=== PATIENT | male | born 1965 | race American Indian/Alaskan Native ===

== ENCOUNTER 2017-07-12 13:51 | Inpatient (IN) | payer SELFPAY ==
[2017-07-12] MEDS ORDERED: BABY ASPIRIN PO ONE ×2 (14:53→19:48)
[2017-07-12] MEDS ORDERED: NITROSTAT SL ONE (14:53)
--- NOTE | 2017-07-12 14:53 | Emergency Department Report ---
Chief Complaint: Chest Pain Stated Complaint: heart attack Time Seen by Provider: 07/12/17 14:40 - HPI History of Present Illness: Patient is a 51-year-old -[place]azi male with past history of diabetes presenting with chest pain. Patient states at 9 AM this morning patient started having sharp chest pains that E slightly but has heightened sense. Patient states he has some mild shortness of breath. Patient also has pain when he breathes deeply. Denies syncope dizziness nausea vomiting diarrhea. Patient states he had a mild cough starting yesterday but he states that is not productive. The patient does have history of smoking as well. - ROS Review of Systems: Review of systems negative except for those elements in HPI - Exam Vital Signs: Vital Signs 07/12/17 07/12/17 14:02 14:39 Temperature 95 F L Pulse Rate 98 H Respiratory 20 18 Rate Blood Pressure 149/126 O2 Sat by Pulse 95 100 Oximetry Physical Exam: Focused physical exam patient's lungs are clear to auscultation heart tones are within normal limits abdomen is soft nontender neuro patient does appear to be in mild distress secondary to pain MSE screening note: Focused history and physical exam performed. Due to findings the following was ordered: ED Disposition for MSE Condition: Stable Referrals: VIRAL TOLBERT MD [Primary Care Provider] - 3-5 Days
[2017-07-12 15:21] LABS: Basophils % (Auto) 0.5 % (0.0-1.8); Eosinophils % (Auto) 2.1 % (0.0-4.3); Hematocrit 46.3 % (35.5-45.6); Hemoglobin 15.8 gm/dl (11.8-15.2); Mean Corpuscular HGB Conc 34 % (32-34); Mean Corpuscular Hemoglobin 33 pg (28-32); Mean Corpuscular Volume 97 fl (84-94); Platelet Count 214 K/mm3 (140-440); Red Blood Count 4.79 M/mm3 (3.65-5.03); Red Cell Distribution Width 12.7 % (13.2-15.2); White Blood Count 9.2 K/mm3 (4.5-11.0)
[2017-07-12 15:32] LABS: INR 0.89 (0.87-1.13)
[2017-07-12 15:33] LABS: Partial Thromboplastin Time 30.4 Sec. (24.2-36.6)
[2017-07-12 15:38] LABS: Anion Gap 17 mmol/L; BUN/Creatinine Ratio 11; Blood Urea Nitrogen 10 mg/dL (9-20); Calcium 9.7 mg/dL (8.4-10.2); Carbon Dioxide 28 mmol/L (22-30); Chloride 99.8 mmol/L (98-107); Glucose 94 mg/dL (75-100); Potassium 4.8 mmol/L (3.6-5.0); Sodium 140 mmol/L (137-145)
--- NOTE | 2017-07-12 15:39 | XRay Report ---
AP CHEST: History: Chest pain. AP view of the chest demonstrates a normal mediastinal and cardiac contour with clear lungs and normal bony and soft tissue structures. IMPRESSION: Normal AP chest.
[2017-07-12] MEDS ORDERED: NITRO-BID 2% TP ONE (19:34)
--- NOTE | 2017-07-12 19:45 | Emergency Department Report ---
ED Chest Pain HPI - General Chief Complaint: Chest Pain Stated Complaint: heart attack Time Seen by Provider: 07/12/17 14:40 Source: patient Mode of arrival: Wheelchair Limitations: No Limitations - History of Present Illness MD Complaint: chest pain -: Gradual, hour(s) Onset: during rest, during exertion Pain Location: substernal, left chest Pain Radiation: none Severity: moderate Severity scale (0 -10): 3 Quality: tightness, sharp, dull Consistency: intermittent, now resolved Improves With: nothing Worsens With: nothing, exertion re: denies: nausea, dyspnea Treatments Prior to Arrival: none - Related Data Previous Rx's Medication Instructions Recorded Last Taken Type Ibuprofen [Motrin] 800 mg PO TID PRN #20 tablet 09/30/13 Unknown Rx Allergies Allergy/AdvReac Type Severity Reaction Status Date / Time Penicillins Allergy Rash Verified 09/30/13 09:38 Heart Score - HEART Score History: Moderately suspicious EKG: Non-specific Age: 45-65 Risk factors: 1-2 risk factors Troponin: 1-3x normal limit HEART Score: 5 ED Review of Systems ROS: Stated complaint: heart attack Other details as noted in HPI Comment: All other systems reviewed and negative Constitutional: diaphoresis Respiratory: no symptoms reported Cardiovascular: chest pain Gastrointestinal: denies: nausea, vomiting ED Past Medical Hx - Past Medical History Hx Diabetes: Yes - Social History Smoking Status: Current Every Day Smoker Substance Use Type: None - Medications Home Medications: Home Medications Medication Instructions Recorded Confirmed Last Taken Type Ibuprofen [Motrin] 800 mg PO TID PRN #20 tablet 09/30/13 07/12/17 Unknown Rx ED Physical Exam - General Limitations: No Limitations General appearance: alert - Head Head exam: Present: atraumatic - Eye Eye exam: Present: normal appearance - Neck Neck exam: Present: normal inspection. Absent: meningismus - Respiratory Respiratory exam: Present: normal lung sounds bilaterally. Absent: respiratory distress, chest wall tenderness - Cardiovascular Cardiovascular Exam: Present: regular rate, normal rhythm, normal heart sounds. Absent: systolic murmur, diastolic murmur, rubs, gallop - GI/Abdominal GI/Abdominal exam: Present: soft. Absent: tenderness, guarding, rebound, pulsatile mass - Extremities Exam Extremities exam: Present: normal inspection, normal capillary refill. Absent: pedal edema, joint swelling, calf tenderness - Back Exam Back exam: Present: normal inspection - Neurological Exam Neurological exam: Present: alert, oriented X3, CN II-XII intact. Absent: motor sensory deficit - Psychiatric Psychiatric exam: Present: normal affect, anxious ED Course Vital Signs 07/12/17 07/12/17 07/12/17 14:02 14:39 15:30 Temperature 95 F L Pulse Rate 98 H 85 Respiratory 20 18 Rate Blood Pressure 149/126 150/103 Blood Pressure [Left] O2 Sat by Pulse 95 100 Oximetry 07/12/17 07/12/17 15:41 16:56 Temperature Pulse Rate 80 74 Respiratory 16 16 Rate Blood Pressure Blood Pressure 148/92 138/98 [Left] O2 Sat by Pulse 96 96 Oximetry - Reevaluation(s) Reevaluation #1: 07/12/17 19:44 Repeat exam patient is pain-free he received aspirin and nitrates on his initial evaluation on my reevaluation patient was pain-free I did elect to repeat an EKG and sent a second troponin was second troponin is elevated EKG however did not show a STEMI he did have normal sinus rhythm without acute ST change case discussed with Dr. Juanjo ANTONIO for admit ED Medical Decision Making - Lab Data Result diagrams: 07/12/17 15:00 07/12/17 15:00 - EKG Data When compared to previous EKG there are: previous EKG unavailable Interpretation: no acute changes, nonspecific ST-T wave tavares 07/12/17 19:46 Poor R-wave progression - Medical Decision Making Patient with elevated troponin and nondiagnostic EKG history worrisome for angina ACS he'll need to be admitted for further evaluation Critical Care Time: Yes Critical care time in (mins) excluding proc time.: 30 Critical care attestation.: If time is entered above; I have spent that time in minutes in the direct care of this critically ill patient, excluding procedure time. ED Disposition Clinical Impression: ACS (acute coronary syndrome) Disposition: -09 OP ADMIT IP TO THIS HOSP Is pt being admited?: Yes Does the pt Need Aspirin: Yes Condition: Stable Referrals: VIRAL TOLBERT MD [Primary Care Provider] - 3-5 Days
[2017-07-12] MEDS ORDERED: DULCOLAX PR PRN (21:35)
[2017-07-12] MEDS ORDERED: MILK OF MAGNESIA PO PRN (21:35)
[2017-07-12] MEDS ORDERED: ZOFRAN IV PRN (21:35)
[2017-07-12] MEDS ORDERED: TYLENOL PO PRN (21:35)
[2017-07-12] MEDS ORDERED: APRESOLINE IV PRN (21:38)
--- NOTE | 2017-07-12 21:38 | History and Physical Report ---
History of Present Illness Date of examination: 07/12/17 History of present illness: 51-year-old woman with a history of diabetes, noncompliant with medication 2 years comes to the emergency room for chest pain that started yesterday. Pain is in the left chest which he describes as a sharp pain, intensity 5/10, no radiation, he cannot identify exacerbating or relieving factors. He denies nausea vomiting, diaphoresis, palpitation, shortness of breath Review Of Systems: Constitutional: no weight loss Ears, eyes, nose, mouth and throat: no nasal congestion, no nasal discharge, no sinus pressure, blurry vision, diplopia Neck: No neck pain or rigidity. Cardiovascular: no orthopnea, palpitations Respiratory: No cough Gastrointestinal:no abdominal pain, hematochezia Genitourinary : no dysuria, frequency , hematuria Musculoskeletal: no muscle ache Integumentary: no rash, no pruritis Neurological: no parathesias, focal weakness Endocrine: no cold or heat intolerance, no polyuria or polydipsia Hematologic/Lymphatic: no easy bruising, no easy bleeding, no gland swelling Allergic/Immunologic: no urticaria, no angioedema. PAST MEDICAL HISTORY: diabetes PAST SURGICAL HISTORY: none FAMILY HISTORY: Hypertension SOCIAL HISTORY: Denies alcohol, drugs, smoke 1 pack a day Medications and Allergies Allergies Allergy/AdvReac Type Severity Reaction Status Date / Time Penicillins Allergy Rash Verified 09/30/13 09:38 Home Medications Medication Instructions Recorded Confirmed Last Taken Type Ibuprofen [Motrin] 800 mg PO TID PRN #20 tablet 09/30/13 07/12/17 Unknown Rx Active Meds: Active Medications Acetaminophen (Tylenol) 650 mg PO Q4H PRN PRN Reason: Pain MILD(1-3)/Fever >100.5/SHERIFF Bisacodyl (Dulcolax) 10 mg [place] QDAY PRN PRN Reason: Constipation unrelieved by MOM Enoxaparin Sodium (Lovenox) 30 mg SUB-Q QDAY ALEX Hydralazine HCl (Apresoline) 5 mg IV Q6HR PRN PRN Reason: Hypertension Magnesium Hydroxide (Milk Of Magnesia) 30 ml PO Q4H PRN PRN Reason: Constipation Morphine Sulfate (Morphine) 2 mg IV Q4H PRN PRN Reason: Pain, Moderate (4-6) Ondansetron HCl (Zofran) 4 mg IV Q8H PRN PRN Reason: N/V unrelieved by Reglan Exam - Physical Exam Narrative exam: Gen. appearance: Patient lying in bed in no acute distress HEENT: Normocephalic/atraumatic, pupils equal round reactive to light, extra occular movement intact, no scleral icterus, no JVD or thyromegaly or nodule, neck is supple, mucous membrane moist, no erythema or exudate Heart: S1-S2, regular rate and rhythm Lungs: Clear to auscultation bilateral breathing comfortable Abdomen: Positive bowel sounds, nontender, nondistended, no organomegaly Extremities: No edema, cyanosis, clubbing Neuro:: Oriented 3 , cranial nerves II-12 intact, speech, motor intact Skin: No rash, nodules, warm dry - Constitutional Vitals: Temp Pulse Resp BP Pulse Ox 95 F L 84 16 142/97 96 07/12/17 14:02 07/12/17 20:02 07/12/17 16:56 07/12/17 20:02 07/12/17 16:56 Results - Labs CBC & Chem 7: 07/12/17 15:00 07/12/17 15:00 Labs: Abnormal lab results 07/12/17 07/12/17 Range/Units 15:00 18:42 Hgb 15.8 H (11.8-15.2) gm/dl Hct 46.3 H (35.5-45.6) % MCV 97 H (84-94) fl MCH 33 H (28-32) pg RDW 12.7 L (13.2-15.2) % Troponin T 0.062 H D (0.00-0.029) ng/mL Cholesterol 219 H (50-199) mg/dL LDL Cholesterol Direct 156 H (50-130) mg/dL - Imaging and Cardiology EKG: image reviewed Chest x-ray: image reviewed Assessment and Plan Assessment Hypertensive urgency Chest pain most like is secondary to #1 History of Diabetes type 2, blood sugar is normal Plan Admit to medicine Start IV hydralazine, norvasc Check cardiac enzymes, lipid profile, stress test, including A1c Start aspirin, IV morphine, DVT prophylaxis
[2017-07-12 22:31] LABS: Creatine Kinase MB 3.5 ng/mL (0.0-4.0)
[2017-07-12] MEDS: MORPHINE IV PRN (23:46)
[2017-07-13 06:00] LABS: Basophils % (Auto) 0.6 % (0.0-1.8); Eosinophils % (Auto) 3.6 % (0.0-4.3); Hematocrit 44.1 % (35.5-45.6); Mean Corpuscular HGB Conc 34 % (32-34); Mean Corpuscular Hemoglobin 33 pg (28-32); Mean Corpuscular Volume 96 fl (84-94); Platelet Count 213 K/mm3 (140-440); Red Blood Count 4.57 M/mm3 (3.65-5.03); Red Cell Distribution Width 12.8 % (13.2-15.2)
[2017-07-13 06:19] LABS: Anion Gap 17 mmol/L; BUN/Creatinine Ratio 13; Blood Urea Nitrogen 13 mg/dL (9-20); Calcium 8.9 mg/dL (8.4-10.2); Carbon Dioxide 26 mmol/L (22-30); Chloride 101.5 mmol/L (98-107); Creatine Kinase MB 3.2 ng/mL (0.0-4.0); Glucose 99 mg/dL (75-100); Potassium 4.1 mmol/L (3.6-5.0); Sodium 140 mmol/L (137-145)
[2017-07-13] MEDS ORDERED: LEXISCAN IV ONE ×2 (08:09→10:51)
[2017-07-13] MEDS ORDERED: LOVENOX SUB-Q SCH (10:00)
[2017-07-13] MEDS: NORVASC PO SCH (12:52)
[2017-07-13] MEDS ORDERED: NACL 0.9% 500 ML 500 ML IV SCH (13:00)
--- NOTE | 2017-07-13 13:25 | Progress Note ---
Assessment and Plan Assessment and plan: Patient is a 61-year-old man with history of hypertension and tobacco dependency who presents with chest pain. -Chest pain with abnormal stress test, most likely NSTEMI: Cardiac catheterization, consult cardiology, on lopressor/plavix/statin==> i added iv heparin and asa, d/w Dr. Mckenzie -Accelerated hypertension due to noncompliance: IV labetalol as needed, treat with beta blockers -Dyslipidemia: Treat with statins -Hyperglycemia, borderline diabetes mellitus, A1c 5.7 -Tobacco dependency: Counseled stopping -DVT prophylaxis: Start heparin drip, stopped lovenox History Interval history: Patient was seen and examined. Follow-up on current diagnosis. Overnight uneventful. Patient denies any chest pain, shortness breath, nausea/vomiting or severe headaches. Imaging, nursing note, chart, labs and old chart reviewed. Discussed with patient. He had chest pain yesterday but not today Hospitalist Physical - Physical exam Narrative exam: GEN: WDWN, NAD, AWAKE, ALERT, ORIENTATED 3 HEENT: NCAT, EOMI, PERRL, OP Clear NECK: supple, no adenopathy, no thyromegaly, no JVD CVS/HEART: RRR, NORMAL S1S2, NO JVD, pulses present bilaterally CHEST/LUNGS: CTA B, Symmetrical chest expansion, good air entry bilaterally GI/Abdomen: soft, NTND, good bowel sounds, no guarding or rebound /Bladder: no suprapubic tenderness, no CVA or paraspinal tenderness EXT/Skin: no c/c/e, no obvious rash MSK: FROM x 4 Neuro: CN 2-12 grossly intact, no new focal deficits Psych: calm - Constitutional Vitals: Temp Pulse Resp BP Pulse Ox 98.7 F 94 H 20 130/101 96 07/12/17 23:42 07/13/17 10:53 07/12/17 23:46 07/13/17 10:53 07/12/17 23:42 Results - Labs CBC & Chem 7: 07/13/17 04:41 07/13/17 04:41 Labs: Laboratory Last Values WBC 10.0 K/mm3 (4.5-11.0) 07/13/17 04:41 RBC 4.57 M/mm3 (3.65-5.03) 07/13/17 04:41 Hgb 15.0 gm/dl (11.8-15.2) 07/13/17 04:41 Hct 44.1 % (35.5-45.6) 07/13/17 04:41 MCV 96 fl (84-94) H 07/13/17 04:41 MCH 33 pg (28-32) H 07/13/17 04:41 MCHC 34 % (32-34) 07/13/17 04:41 RDW 12.8 % (13.2-15.2) L 07/13/17 04:41 Plt Count 213 K/mm3 (140-440) 07/13/17 04:41 Lymph % (Auto) 39.6 % (13.4-35.0) H 07/13/17 04:41 [place] % (Auto) 6.5 % (0.0-7.3) 07/13/17 04:41 Eos % (Auto) 3.6 % (0.0-4.3) 07/13/17 04:41 Baso % (Auto) 0.6 % (0.0-1.8) 07/13/17 04:41 Lymph # 3.9 K/mm3 (1.2-5.4) 07/13/17 04:41 [place] # 0.6 K/mm3 (0.0-0.8) 07/13/17 04:41 Eos # 0.4 K/mm3 (0.0-0.4) 07/13/17 04:41 Baso # 0.1 K/mm3 (0.0-0.1) 07/13/17 04:41 Seg Neutrophils % 49.7 % (40.0-70.0) 07/13/17 04:41 Seg Neutrophils # 5.0 K/mm3 (1.8-7.7) 07/13/17 04:41 PT 12.5 Sec. (12.2-14.9) 07/12/17 15:00 INR 0.89 (0.87-1.13) 07/12/17 15:00 APTT 30.4 Sec. (24.2-36.6) 07/12/17 15:00 D-Dimer 190.63 ng/mlDDU (0-234) 07/12/17 15:00 Sodium 140 mmol/L (137-145) 07/13/17 04:41 Potassium 4.1 mmol/L (3.6-5.0) 07/13/17 04:41 Chloride 101.5 mmol/L (98-107) 07/13/17 04:41 Carbon Dioxide 26 mmol/L (22-30) 07/13/17 04:41 Anion Gap 17 mmol/L 07/13/17 04:41 BUN 13 mg/dL (9-20) 07/13/17 04:41 Creatinine 1.0 mg/dL (0.8-1.5) 07/13/17 04:41 Estimated GFR > 60 ml/min 07/13/17 04:41 BUN/Creatinine Ratio 13 % 07/13/17 04:41 Glucose 99 mg/dL (75-100) 07/13/17 04:41 Hemoglobin A1c 5.7 % (4-6) 07/13/17 04:41 Calcium 8.9 mg/dL (8.4-10.2) 07/13/17 04:41 Total Creatine Kinase 132 units/L (55-170) 07/13/17 04:41 CK-MB (CK-2) 3.2 ng/mL (0.0-4.0) 07/13/17 04:41 CK-MB (CK-2) Rel Index 2.4 (0-4) 07/13/17 04:41 Troponin T 0.014 ng/mL (0.00-0.029) 07/13/17 04:41 Triglycerides 58 mg/dL (2-149) 07/12/17 18:42 Cholesterol 219 mg/dL (50-199) H 07/12/17 18:42 LDL Cholesterol Direct 156 mg/dL (50-130) H 07/12/17 18:42 HDL Cholesterol 52 mg/dL (40-59) 07/12/17 18:42 Cholesterol/HDL Ratio 4.21 % 07/12/17 18:42
[2017-07-13 14:27] LABS: Hematocrit 44.9 % (35.5-45.6); Hemoglobin 15.4 gm/dl (11.8-15.2)
[2017-07-13 14:37] LABS: INR 0.94 (0.87-1.13)
[2017-07-13] MEDS: BABY ASPIRIN PO SCH (17:43)
[2017-07-13] MEDS: MORPHINE IV PRN (18:30)
[2017-07-13] MEDS: LOPRESSOR PO SCH (21:05)
[2017-07-13] MEDS: HEPARIN/ 0.45% NACL-25,000 UNIT/500 ML 25,000 UNIT/500 ML BAG IV SCH (21:22)
--- NOTE | 2017-07-13 22:50 | Consultation ---
REFERRING PHYSICIAN: Aníbal Miranda M.D. REASON FOR CONSULTATION: Evaluation of abnormal stress test. HISTORY OF PRESENT ILLNESS: The patient is a 51-year-old -[place] gentleman who presented to the Emergency Room with chest pain that started the night before and the pain is in the anterior chest associated with shortness of breath. In the morning of admission, the patient went to look for cars and when he was walking around, he had anterior chest discomfort, shortness of breath, which is getting worse. He describes the pain as tightness with no radiation. He got short of breath, no nausea, vomiting. The pain is severe. Hence, he came to the Emergency Room. He was evaluated in the Emergency Room and was admitted for further evaluation. Laboratory data showed troponin is elevated. Troponin was 0.062 at the time of admission and repeat one is 0.044 and this morning is 0.014. Lipid profile showed triglycerides 58, cholesterol of 219, LDL of 156, HDL of 52. Subsequently, underwent IV Lexiscan nuclear imaging. The EKG at the time of stress test was unremarkable. This showed evidence of anterior ischemia, which is reversible. Hence, we were called in consultation. The patient states he is very active, used to play came ball and drum without any problems. His problem started only for last 2 days. The patient has history of diabetes mellitus for last 2 years, noncompliant with the medication. No history of hypertension. FAMILY HISTORY: No family history of coronary artery disease. SOCIAL HISTORY: Smokes 1 pack in 2 days. Denies any alcohol or drug use. He is with, he says has 16 children. 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 REVIEW OF SYSTEMS: He has history of kidney stones a while ago. Otherwise, previous hospitalization was for gastric ulcers many, many years ago. No history of blood transfusion. No history of anemia. No history of asthma. No history of strokes. No history of pulmonary emboli or DVT. He denies any hypertension. Apparently, he has diabetes, not taking medication. Denies any fever or coughing, no orthopnea, no PND, no leg swelling. PHYSICAL EXAMINATION: GENERAL: The patient appears to be comfortable, well developed, well nourished. HEENT: Conjunctivae pink. Sclerae anicteric. NECK: Supple, no JVD. HEART: Regular, probable S4, no S3, no significant murmurs noted. LUNGS: Clear. ABDOMEN: Benign. EXTREMITIES: Without edema. IMAGING: Chest x-ray was found to be unremarkable. EKG done at the time of admission showed minimal ST elevations in V1 and V2. FINAL IMPRESSION: Chest pain at rest and with minimal exertion of 1-2 days duration. Cardiac enzymes are minimally elevated, suggestive of acute coronary syndrome and also IV Lexiscan nuclear imaging showed evidence of anterior ischemia. Considering his risk factors of diabetes, hypertension with chest pain and abnormal nuclear imaging and elevated cardiac enzymes, would continue risk factor modification and medical therapy. Recommended cardiac catheterization for definitive diagnosis and treatment. The patient was explained of the procedure, potential complications and alternatives of therapy available. The patient is chest pain free at this time. He is eligible to have cardiac catheterization, same will be arranged. In the meantime, we will start him on aspirin, Plavix, beta pia. He is already on amlodipine. The patient is agreeable to proceed with the cardiac catheterization. hx. of diabetes,which he is not paying attention to. Thank you very much, Dr. Miranda for letting us participate in your patient's care. JOB# [id number] SHALONDA/JEANA HENDERSON
[2017-07-14] MEDS: BABY ASPIRIN PO SCH (10:41)
[2017-07-14] MEDS: PLAVIX PO SCH (10:41)
[2017-07-14] MEDS: NORVASC PO SCH (10:41)
[2017-07-14] MEDS: LOPRESSOR PO SCH ×2 (10:42→21:39)
--- NOTE | 2017-07-14 11:47 | Progress Note ---
Assessment and Plan Assessment and plan: Patient is a 61-year-old man with history of hypertension and tobacco dependency who presents with chest pain. Chest pain with abnormal stress test. For cardiac catheterization tomorrow. cardiology following. On Aspirin, Lopressor/Plavix/Statin and Heparin drip Accelerated hypertension due to noncompliance: IV labetalol as needed, treat with beta blockers Dyslipidemia: On Lipitor Pre-diabetes with A1c 5.7 Tobacco dependency: Counseled stopping DVT prophylaxis: On heparin drip History Interval history: Chest pain, resolved No shortness of breath No vomiting no fever Hospitalist Physical - Physical exam Narrative exam: GEN APPEARANCE : Not in acute distress, obese HEENT: Normocephalic, Atraumatic NECK : supple, no JVD LUNGS: Clear to auscultation bilaterally, no rales, no wheeze HEART: S1 and S2 regular, no murmurs, rubs or gallop, ABD: Soft, non tender, non distended, normal bowel sounds EXT: No edema, no clubbing, no cyanosis NEURO:Awake,alert,Oriented x 3, No focal signs psych:Normal mood - Constitutional Vitals: Temp Pulse Resp BP Pulse Ox 98.0 F 84 20 139/83 99 07/14/17 06:06 07/14/17 06:06 07/14/17 06:06 07/14/17 06:06 07/14/17 07:40 Results - Labs CBC & Chem 7: 07/13/17 13:46 07/13/17 04:41 Labs: Laboratory Last Values WBC 10.0 K/mm3 (4.5-11.0) 07/13/17 04:41 RBC 4.57 M/mm3 (3.65-5.03) 07/13/17 04:41 Hgb 15.4 gm/dl (11.8-15.2) H 07/13/17 13:46 Hct 44.9 % (35.5-45.6) 07/13/17 13:46 MCV 96 fl (84-94) H 07/13/17 04:41 MCH 33 pg (28-32) H 07/13/17 04:41 MCHC 34 % (32-34) 07/13/17 04:41 RDW 12.8 % (13.2-15.2) L 07/13/17 04:41 Plt Count 199 K/mm3 (140-440) 07/13/17 13:46 Lymph % (Auto) 39.6 % (13.4-35.0) H 07/13/17 04:41 [place] % (Auto) 6.5 % (0.0-7.3) 07/13/17 04:41 Eos % (Auto) 3.6 % (0.0-4.3) 07/13/17 04:41 Baso % (Auto) 0.6 % (0.0-1.8) 07/13/17 04:41 Lymph # 3.9 K/mm3 (1.2-5.4) 07/13/17 04:41 [place] # 0.6 K/mm3 (0.0-0.8) 07/13/17 04:41 Eos # 0.4 K/mm3 (0.0-0.4) 07/13/17 04:41 Baso # 0.1 K/mm3 (0.0-0.1) 07/13/17 04:41 Seg Neutrophils % 49.7 % (40.0-70.0) 07/13/17 04:41 Seg Neutrophils # 5.0 K/mm3 (1.8-7.7) 07/13/17 04:41 PT 13.0 Sec. (12.2-14.9) 07/13/17 13:46 INR 0.94 (0.87-1.13) 07/13/17 13:46 APTT 35.0 Sec. (24.2-36.6) 07/13/17 13:46 D-Dimer 190.63 ng/mlDDU (0-234) 07/12/17 15:00 Heparin Anti-Xa Level 0.14 U.I./ml (0.3-0.7) L 07/14/17 04:51 Sodium 140 mmol/L (137-145) 07/13/17 04:41 Potassium 4.1 mmol/L (3.6-5.0) 07/13/17 04:41 Chloride 101.5 mmol/L (98-107) 07/13/17 04:41 Carbon Dioxide 26 mmol/L (22-30) 07/13/17 04:41 Anion Gap 17 mmol/L 07/13/17 04:41 BUN 13 mg/dL (9-20) 07/13/17 04:41 Creatinine 1.0 mg/dL (0.8-1.5) 07/13/17 04:41 Estimated GFR > 60 ml/min 07/13/17 04:41 BUN/Creatinine Ratio 13 % 07/13/17 04:41 Glucose 99 mg/dL (75-100) 07/13/17 04:41 POC Glucose 94 (70-105) 07/13/17 21:48 Hemoglobin A1c 5.7 % (4-6) 07/13/17 04:41 Calcium 8.9 mg/dL (8.4-10.2) 07/13/17 04:41 Total Creatine Kinase 132 units/L (55-170) 07/13/17 04:41 CK-MB (CK-2) 3.2 ng/mL (0.0-4.0) 07/13/17 04:41 CK-MB (CK-2) Rel Index 2.4 (0-4) 07/13/17 04:41 Troponin T 0.014 ng/mL (0.00-0.029) 07/13/17 04:41 Triglycerides 58 mg/dL (2-149) 07/12/17 18:42 Cholesterol 219 mg/dL (50-199) H 07/12/17 18:42 LDL Cholesterol Direct 156 mg/dL (50-130) H 07/12/17 18:42 HDL Cholesterol 52 mg/dL (40-59) 07/12/17 18:42 Cholesterol/HDL Ratio 4.21 % 07/12/17 18:42
--- NOTE | 2017-07-14 16:29 | Progress Note ---
Assessment and Plan Patient with chest pain,hx. of diabetes and abnormal cardiac enzymes and abnormal MPI with anterior ischemia,was recommended cardiac cath,was given option of alternative of medical therapy.Agreeable to proceed with cath. - Patient Problems (1) ACS (acute coronary syndrome) Current Visit: Yes Status: Acute Subjective Date of service: 07/14/17 Interval history: patient willing for cath in AM, in room,spoke to her. Objective Vital Signs Temp Pulse Resp BP Pulse Ox 07/14/17 07:40 99 07/14/17 06:06 98.0 F 84 20 139/83 97 07/14/17 00:46 97.9 F 82 20 125/85 97 07/13/17 20:01 98 07/13/17 20:00 98 07/13/17 19:15 97.5 F L 98 H 20 147/92 98 07/13/17 16:43 117 H 147/93 98 - Physical Examination General: Appears Well Neck: Positive: neck supple Cardiac: Positive: Reg Rate and Rhythm Lungs: Positive: clear to auscultation Neuro: Positive: Grossly Intact Abdomen: Positive: Unremarkable Skin: Negative: Rash Extremities: Absent: edema - Imaging and Cardiology EKG: image reviewed - EKG Sinus rhythms and dysrhythmias: sinus rhythm
[2017-07-14] MEDS: HEPARIN/ 0.45% NACL-25,000 UNIT/500 ML 25,000 UNIT/500 ML BAG IV SCH ×2 (18:30→21:35)
[2017-07-15 05:54] LABS: Basophils % (Auto) 0.9 % (0.0-1.8); Eosinophils % (Auto) 3.7 % (0.0-4.3); Hematocrit 43.8 % (35.5-45.6); Hemoglobin 14.9 gm/dl (11.8-15.2); Mean Corpuscular HGB Conc 34 % (32-34); Mean Corpuscular Hemoglobin 33 pg (28-32); Mean Corpuscular Volume 98 fl (84-94); Platelet Count 190 K/mm3 (140-440); Red Blood Count 4.48 M/mm3 (3.65-5.03); Red Cell Distribution Width 12.6 % (13.2-15.2); White Blood Count 8.8 K/mm3 (4.5-11.0)
[2017-07-15 06:04] LABS: INR 0.88 (0.87-1.13)
[2017-07-15 06:05] LABS: Partial Thromboplastin Time 53.4 Sec. (24.2-36.6)
[2017-07-15 06:06] LABS: Anion Gap 19 mmol/L; BUN/Creatinine Ratio 11; Blood Urea Nitrogen 10 mg/dL (9-20); Calcium 8.7 mg/dL (8.4-10.2); Carbon Dioxide 23 mmol/L (22-30); Chloride 103.5 mmol/L (98-107); Glucose 97 mg/dL (75-100); Potassium 4.3 mmol/L (3.6-5.0); Sodium 141 mmol/L (137-145)
[2017-07-15] MEDS ORDERED: NITROGLYCERIN SYRINGE 3 ML ONE (08:27)
[2017-07-15] MEDS ORDERED: HEPARIN/NS 5000 UNIT/500ML(CATH LAB) 1,000 ML IR ONE (08:27)
[2017-07-15] MEDS ORDERED: NACL 0.9% 500 ML 500 ML ONE (08:53)
[2017-07-15] MEDS: CALAN ONE ×3 (09:06→09:24)
[2017-07-15] MEDS: SUBLIMAZE ONE ×2 (09:06→09:22)
[2017-07-15] MEDS: XYLOCAINE 2% INFILTRATI ONE ×2 (09:06→09:22)
[2017-07-15] MEDS: VERSED ONE ×2 (09:06→09:22)
[2017-07-15] MEDS: HEPARIN 10,000 UNITS/10 ML ONE ×3 (09:07→09:35)
[2017-07-15] MEDS ORDERED: AGGRASTAT DRIP (12.5 MG/250 ML) 12,500 MCG/250 ML BAG IV ONE (09:50)
[2017-07-15] MEDS ORDERED: EFFIENT PO ONE (10:14)
[2017-07-15] MEDS ORDERED: BABY ASPIRIN ONE (10:14)
[2017-07-15] MEDS ORDERED: PLAVIX ONE (10:29)
[2017-07-15] MEDS ORDERED: ASPIRIN ONE (10:31)
--- NOTE | 2017-07-15 10:33 | Progress Note ---
Assessment and Plan Assessment: CAD Chest pain - currently resolved Abnormal stress test Minimally elevated troponins DM HTN Plan: S/p [facility] this AM with PCI of LAD. D/c heparin gtt. Cont ASA 325, plavix, lopressor, lipitor. Possible d/c home in AM. The patient has been seen in conjunction with Dr. Alexis Abbasi who agrees with the assessment and plan of care. Subjective Date of service: 07/15/17 Principal diagnosis: chest pain Interval history: pt for [facility] today. no current cardiac complaints. Objective Last Vital Signs Temp 98.1 F 07/15/17 05:10 Pulse 74 07/15/17 05:10 Resp 20 07/15/17 05:10 BP 120/86 07/15/17 05:10 Pulse Ox 100 07/15/17 07:30 - Physical Examination General: Appears Well Neck: Positive: neck supple Cardiac: Positive: Reg Rate and Rhythm, S1/S2 Lungs: Positive: clear to auscultation Neuro: Positive: Grossly Intact Abdomen: Positive: Unremarkable Skin: Negative: Rash Extremities: Absent: edema - Labs and Meds Coagulation 07/15/17 Range/Units 04:20 PT 12.4 (12.2-14.9) Sec. INR 0.88 (0.87-1.13) APTT 53.4 H (24.2-36.6) Sec. CBC 07/15/17 Range/Units 04:20 WBC 8.8 (4.5-11.0) K/mm3 RBC 4.48 (3.65-5.03) M/mm3 Hgb 14.9 (11.8-15.2) gm/dl Hct 43.8 (35.5-45.6) % Plt Count 190 (140-440) K/mm3 Lymph # 4.1 (1.2-5.4) K/mm3 [place] # 0.7 (0.0-0.8) K/mm3 Eos # 0.3 (0.0-0.4) K/mm3 Baso # 0.1 (0.0-0.1) K/mm3 Comprehensive Metabolic Panel 07/15/17 Range/Units 04:37 Sodium 141 (137-145) mmol/L Potassium 4.3 (3.6-5.0) mmol/L Chloride 103.5 (98-107) mmol/L Carbon Dioxide 23 (22-30) mmol/L BUN 10 (9-20) mg/dL Creatinine 0.9 (0.8-1.5) mg/dL Glucose 97 (75-100) mg/dL Calcium 8.7 (8.4-10.2) mg/dL - Imaging and Cardiology EKG: image reviewed - EKG Sinus rhythms and dysrhythmias: sinus rhythm
--- NOTE | 2017-07-15 10:41 | Progress Note ---
Assessment and Plan Assessment and plan: Patient is a 61-year-old man with history of hypertension and tobacco dependency who presents with chest pain. Unstable angina/Chest pain with abnormal stress test. Cardiac catheterization done today. Showed single vessel CAD, s/p PCI and bare metal stent placed. Cardiology following. On Aspirin, Lopressor/Plavix/Statin. Started on Effient, Aggrastat. Likely discharge home tomorrow if stable. Accelerated hypertension due to noncompliance: IV labetalol as needed, treat with beta blockers Dyslipidemia: On Lipitor Pre-diabetes with A1c 5.7 Tobacco dependency: Counseled on stopping DVT prophylaxis: On heparin drip History Interval history: Chest pain, resolved No shortness of breath No vomiting Had cardiac cath today Hospitalist Physical - Physical exam Narrative exam: GEN APPEARANCE : Not in acute distress, obese HEENT: Normocephalic, Atraumatic NECK : supple, no JVD LUNGS: Clear to auscultation bilaterally, no rales, no wheeze HEART: S1 and S2 regular, no murmurs, rubs or gallop, ABD: Soft, non tender, non distended, normal bowel sounds EXT: No edema, no clubbing, no cyanosis NEURO:Awake,alert,Oriented x 3, No focal signs psych:Normal mood - Constitutional Vitals: Temp Pulse Resp BP Pulse Ox 98.1 F 74 20 120/86 100 07/15/17 05:10 07/15/17 05:10 07/15/17 05:10 07/15/17 05:10 07/15/17 07:30 Results - Labs CBC & Chem 7: 07/15/17 04:20 07/15/17 04:37 Labs: Laboratory Last Values WBC 8.8 K/mm3 (4.5-11.0) 07/15/17 04:20 RBC 4.48 M/mm3 (3.65-5.03) 07/15/17 04:20 Hgb 14.9 gm/dl (11.8-15.2) 07/15/17 04:20 Hct 43.8 % (35.5-45.6) 07/15/17 04:20 MCV 98 fl (84-94) H 07/15/17 04:20 MCH 33 pg (28-32) H 07/15/17 04:20 MCHC 34 % (32-34) 07/15/17 04:20 RDW 12.6 % (13.2-15.2) L 07/15/17 04:20 Plt Count 190 K/mm3 (140-440) 07/15/17 04:20 Lymph % (Auto) 46.4 % (13.4-35.0) H 07/15/17 04:20 [place] % (Auto) 7.5 % (0.0-7.3) H 07/15/17 04:20 Eos % (Auto) 3.7 % (0.0-4.3) 07/15/17 04:20 Baso % (Auto) 0.9 % (0.0-1.8) 07/15/17 04:20 Lymph # 4.1 K/mm3 (1.2-5.4) 07/15/17 04:20 [place] # 0.7 K/mm3 (0.0-0.8) 07/15/17 04:20 Eos # 0.3 K/mm3 (0.0-0.4) 07/15/17 04:20 Baso # 0.1 K/mm3 (0.0-0.1) 07/15/17 04:20 Seg Neutrophils % 41.5 % (40.0-70.0) 07/15/17 04:20 Seg Neutrophils # 3.6 K/mm3 (1.8-7.7) 07/15/17 04:20 PT 12.4 Sec. (12.2-14.9) 07/15/17 04:20 INR 0.88 (0.87-1.13) 07/15/17 04:20 APTT 53.4 Sec. (24.2-36.6) H 07/15/17 04:20 D-Dimer 190.63 ng/mlDDU (0-234) 07/12/17 15:00 Heparin Anti-Xa Level 0.31 U.I./ml (0.3-0.7) 07/15/17 04:20 Sodium 141 mmol/L (137-145) 07/15/17 04:37 Potassium 4.3 mmol/L (3.6-5.0) 07/15/17 04:37 Chloride 103.5 mmol/L (98-107) 07/15/17 04:37 Carbon Dioxide 23 mmol/L (22-30) 07/15/17 04:37 Anion Gap 19 mmol/L 07/15/17 04:37 BUN 10 mg/dL (9-20) 07/15/17 04:37 Creatinine 0.9 mg/dL (0.8-1.5) 07/15/17 04:37 Estimated GFR > 60 ml/min 07/15/17 04:37 BUN/Creatinine Ratio 11 % 07/15/17 04:37 Glucose 97 mg/dL (75-100) 07/15/17 04:37 POC Glucose 92 (70-105) 07/15/17 06:02 Hemoglobin A1c 5.7 % (4-6) 07/13/17 04:41 Calcium 8.7 mg/dL (8.4-10.2) 07/15/17 04:37 Total Creatine Kinase 132 units/L (55-170) 07/13/17 04:41 CK-MB (CK-2) 3.2 ng/mL (0.0-4.0) 07/13/17 04:41 CK-MB (CK-2) Rel Index 2.4 (0-4) 07/13/17 04:41 Troponin T 0.014 ng/mL (0.00-0.029) 07/13/17 04:41 Triglycerides 58 mg/dL (2-149) 07/12/17 18:42 Cholesterol 219 mg/dL (50-199) H 07/12/17 18:42 LDL Cholesterol Direct 156 mg/dL (50-130) H 07/12/17 18:42 HDL Cholesterol 52 mg/dL (40-59) 07/12/17 18:42 Cholesterol/HDL Ratio 4.21 % 07/12/17 18:42
[2017-07-15] MEDS: PLAVIX PO SCH (11:26)
--- NOTE | 2017-07-15 11:35 | Cardiac Catherization Report ---
CARDIAC CATHETERIZATION REFERRING PHYSICIAN: Seema Mckenzie MD INDICATION FOR PROCEDURE: The patient is a pleasant 51-year-old -[place] gentleman admitted with non-ST elevation myocardial infarction. Chest pain, multiple risk factors, risks, benefits, alternatives explained at length prior to obtaining informed consent. PROCEDURE IN DETAIL: The patient was brought to the catheterization lab in a postabsorptive state, prepped and draped in sterile fashion. Paul's test in right hand was normal. A 2 mL of 2% lidocaine used to anesthetize the right wrist. A standard 6-Qatari hydrophilic sheath used to cannulate the right radial artery via modified Seldinger technique. All exchanges performed to exchange a J-tip guidewire. JL3.5 catheter used to engage the left main. No dampening or ventricularization. Cineangiography performed in all projections. JR4 catheter used to cross the aortic valve under fluoroscopic guidance. Left ventriculography performed in 30 PEREZ and 30 SYRIAC projections via hand injections, catheter flushed. Manual pullback performed with continuous pressure monitoring. Catheter used to engage the right coronary. No dampening or ventricularization. Cineangiography performed in all projections. JR4 catheter was used to cross the aortic valve under fluoroscopic guidance. Left ventriculography performed in 30 PEREZ and 30 SYRIAC projections via hand injections, catheter flushed. Manual pullback performed with continuous pressure monitoring. Catheter used to engage the right coronary. No dampening or ventricularization. Cineangiography performed in all projections. Next, catheter removed from the body. DATA: Aortic pressure is 120/80, LV pressure is 120, LVEDP of 20 mmHg. Left ventriculography revealed mid lateral hypokinesis with preserved ejection fraction of 55-60%. Normal LVEDP. No evidence of aortic stenosis. CORONARY ANATOMY: This is a right dominant system. Right coronary is a moderate sized vessel, courses AV groove, distally bifurcates in the posterior descending and posterolateral branch. Mild nonobstructive disease in the mid right coronary. Maximal narrowing of approximately 20%. Left main short without significant disease, trifurcates in LAD, ramus intermedius, and left circumflex. Left circumflex is a moderate sized vessel, courses AV groove. No significant disease. Ramus intermedius is a moderate sized vessel, courses the middle aspect to lateral wall, no significant disease. LAD is a moderate sized vessel, courses anterior intergroove, wraps around the apex, moderate sized vessel. There is a 90% stenosis in the distal which is hazy, possibly consistent with atherothrombosis. RUY 2 flow. There is also dye hangup in a very small diagonal probably 2.0 vessel. This is an occlusion. This could be a co-culprit. Given the patient's presentation with chest pain, multiple culprit vessels, decided to proceed with PCI. Heparin given. Abnormal ACT confirmed and Aggrastat started. EBU 3.5 guide used to engage the left main without difficulty. Next, used a Whisper extra support to cross the diagonal lesion without difficulties, a 2.0 x 12 balloon. RUY 2 flow returned to the diagonal; however, this is a small vessel, likely or so vessel, too small to stent. At this point, we approached the distal LAD lesion. We used the same 2.0 x 12 balloon to predilate the lesion. We used a 2.75 x 15 Integrity bare metal stent. I chose a bare metal stent due to history of noncompliance, deployed at 10 HIRAL for 25 seconds, excellent angiographic result. Next, intravascular ultrasound was used, multiple passes were made. There were no complications. The vascular ultrasound revealed a well-opposed and well expanded stent. No dissection. Moderate diffuse concentric plaque throughout the LAD, but no obstructive disease identified elsewhere nor in the left main. RUY 3 flow, excellent final angiographic and endoscopic results. The diagonal now with RUY 3 flow, albeit very small vessel. CONCLUSIONS: 1. Significant single vessel coronary artery disease. 2. Atherothrombotic occlusion of a very small second diagonal and a hazy atherothrombotic 90% occlusion of the distal LAD. Successful POBA/PTCA of the second diagonal, resumption of RUY 3 flow, too small for PCI. 3. Successful IVUS guided PCI of the distal LAD with placement of Vision 2.75 x 15 bare metal stent, with excellent angiographic and endoscopic results. 4. Nonobstructive disease elsewhere in the coronary tree. 5. Left ventriculography revealed mid lateral dyskinesis with preserved ejection fraction of 55-60%. 5. No evidence of aortic stenosis. Continue Aggrastat for 12 hours. Effient, aspirin therapy, statin therapy. Importance of medication compliance discussed. Results of the procedure explained in length to the patient and family. All questions and concerns were addressed. The patient is clinically stable, chest pain free, will be transferred back to his telemetry bed. JOB# [id number] SBM/NTS
[2017-07-15] MEDS: NORVASC PO SCH (11:52)
[2017-07-15] MEDS: LOPRESSOR PO SCH ×2 (11:52→22:22)
[2017-07-15] MEDS: MORPHINE IV PRN (22:23)
[2017-07-16 06:05] LABS: Hematocrit 42.3 % (35.5-45.6); Hemoglobin 14.7 gm/dl (11.8-15.2); Mean Corpuscular HGB Conc 35 % (32-34); Mean Corpuscular Hemoglobin 34 pg (28-32); Mean Corpuscular Volume 97 fl (84-94); Platelet Count 180 K/mm3 (140-440); Red Blood Count 4.34 M/mm3 (3.65-5.03); Red Cell Distribution Width 12.6 % (13.2-15.2); White Blood Count 8.4 K/mm3 (4.5-11.0)
[2017-07-16 06:30] LABS: Anion Gap 19 mmol/L; BUN/Creatinine Ratio 13; Blood Urea Nitrogen 13 mg/dL (9-20); Carbon Dioxide 22 mmol/L (22-30); Glucose 120 mg/dL (75-100); Sodium 140 mmol/L (137-145)
[2017-07-16] MEDS: LOPRESSOR PO SCH (09:38)
[2017-07-16] MEDS: NORVASC PO SCH (09:38)
[2017-07-16] MEDS: PLAVIX PO SCH (09:38)
[2017-07-16 09:39] VITALS: BP 115/80
[2017-07-16] MEDS ORDERED: ASPIRIN PO SCH (10:00)
--- NOTE | 2017-07-16 10:14 | Progress Note ---
Assessment and Plan Assessment: CAD - s/p PCI of LAD Unstable angina - currently resolved Abnormal stress test Minimally elevated troponins DM HTN Plan: Cont ASA 325, plavix, lopressor, lipitor. Currently stable cardiac status. Pt may discharge home from cardiology standpoint. Follow up in our [place] office with Dr. Mckenzie on 08/01/2017 @ 1:45PM. The patient has been seen in conjunction with Dr. Alexis Abbasi who agrees with the assessment and plan of care. Subjective Date of service: 07/16/17 Principal diagnosis: chest pain Interval history: pt with no current complaints. states he is feeling well and is ready for discharge home. VSS. Objective Last Vital Signs Temp 98.3 F 07/16/17 05:40 Pulse 81 07/16/17 07:00 Resp 20 07/16/17 05:40 BP 115/80 07/16/17 09:38 Pulse Ox 97 07/16/17 05:40 - Physical Examination General: Appears Well Neck: Positive: neck supple Cardiac: Positive: Reg Rate and Rhythm, S1/S2 Lungs: Positive: clear to auscultation Neuro: Positive: Grossly Intact Abdomen: Positive: Unremarkable Skin: Negative: Rash Extremities: Absent: edema - Labs and Meds CBC 07/16/17 Range/Units 04:37 WBC 8.4 (4.5-11.0) K/mm3 RBC 4.34 (3.65-5.03) M/mm3 Hgb 14.7 (11.8-15.2) gm/dl Hct 42.3 (35.5-45.6) % Plt Count 180 (140-440) K/mm3 Comprehensive Metabolic Panel 07/16/17 Range/Units 04:37 Sodium 140 (137-145) mmol/L Potassium 4.0 (3.6-5.0) mmol/L Chloride 103.0 (98-107) mmol/L Carbon Dioxide 22 (22-30) mmol/L BUN 13 (9-20) mg/dL Creatinine 1.0 (0.8-1.5) mg/dL Glucose 120 H (75-100) mg/dL Calcium 9.0 (8.4-10.2) mg/dL - Imaging and Cardiology EKG: image reviewed - EKG Sinus rhythms and dysrhythmias: sinus rhythm
--- NOTE | 2017-07-16 10:22 | Discharge Summary ---
Providers - Providers Date of Admission: 07/12/17 21:35 Date of discharge: 07/16/17 Attending physician: VIRAL PINTO 07/13/17 13:20 Consult to Physician [CONS] Routine Consulting Provider: BRIGHT MCKENZIE Reason For Exam: abnormal stress test Place consult to:: Dr. Mckenzie Notified:: Bailey RN Comment:: Dr. Mckenzie aware of consult 07/15/17 10:33 Consult to Cardiac Rehabilitation [CONS] Routine Reason For Exam: Cardiac Rehab Evaluation Primary care physician: VIRAL TOLBERT Hospitalization Condition: Good Hospital course: Patient is 51 yo with hypertension, diabetes, presented with chest pain. Initial Troponin was normal. He was given Aspirin and admitted to rule out acute coronary artery syndrome . Second troponin was slightly elevated at 0.062. He was evaluated by [facility]. Stress test done on 07/13/17 revealed ischemia therefore cardiac cath done on . This revealed single vessel coronary artery disease. He had bare metal stent placed to distal LAD. Post procedure was uneventful. He was stable and discharged home on 07/16/17. Total time spent on discharge, 33 mins Disposition: DC-01 TO HOME OR SELFCARE - Discharge Diagnoses (1) Unstable angina Status: Acute (2) CAD (coronary artery disease) Status: Acute Qualifiers: Associated angina: with unstable angina (3) Hypertension Status: Chronic Qualifiers: Hypertension type: essential hypertension Qualified Code(s): I10 - Essential (primary) hypertension (4) Diabetes mellitus type 2, uncontrolled Status: Chronic Qualifiers: Diabetes mellitus complication status: with hyperglycemia (5) Obesity (BMI 30.0-34.9) Status: Chronic Core Measure Documentation - Palliative Care Palliative Care/ Comfort Measures: Not Applicable - Core Measures Any of the following diagnoses?: none Exam - Physical Exam Narrative exam: GEN APPEARANCE : Not in acute distress, obese HEENT: Normocephalic, Atraumatic NECK : supple, no JVD LUNGS: Clear to auscultation bilaterally, no rales, no wheeze HEART: S1 and S2 regular, no murmurs, rubs or gallop, ABD: Soft, non tender, non distended, normal bowel sounds EXT: No edema, no clubbing, no cyanosis NEURO:Awake,alert,Oriented x 3, No focal signs psych:Normal mood - Constitutional Vitals: Temp Pulse Resp BP Pulse Ox 98.3 F 81 20 115/80 97 07/16/17 05:40 07/16/17 07:00 07/16/17 05:40 07/16/17 09:38 07/16/17 05:40 Plan Activity: other Diet: low fat, low cholesterol, low salt Additional Instructions: 1.Follow up with PCP in 1 week. 2.Follow up with Dr. Mckenzie on 08/01/17. 3.No strenous activity until cleared by cardiology Follow up with: VIRAL TOLBERT MD [Primary Care Provider] - 3-5 Days Forms: CardCat PCI D/C Instructions Prescriptions: Aspirin [Aspirin TAB] 325 mg PO QDAY #30 tablet AtorvaSTATin [Lipitor] 40 mg PO QHS #30 tablet Clopidogrel [Plavix] 75 mg PO QDAY #30 tablet Metoprolol [Lopressor TAB] 50 mg PO BID #60 tablet
== END 2017-07-16 12:43 | disposition home or self-care (01) | DRG 249 ==
LOC: ED 13:51 → 4A 21:35
PROVIDERS: ADMIT Internal Medicine; ATTEND Internal Medicine
PROC: 02703DZ Dilation of Coronary Artery, One Artery with Intraluminal Device, Percutaneous Approach (ICD-10-PCS; principal; 2017-07-15)
PROC: B241ZZ3 Ultrasonography of Multiple Coronary Arteries, Intravascular (ICD-10-PCS; 2017-07-15)
PROC: 4A023N7 Measurement of Cardiac Sampling and Pressure, Left Heart, Percutaneous Approach (ICD-10-PCS; 2017-07-15)
PROC: B2111ZZ Fluoroscopy of Multiple Coronary Arteries using Low Osmolar Contrast (ICD-10-PCS; 2017-07-15)
PROC: B2151ZZ Fluoroscopy of Left Heart using Low Osmolar Contrast (ICD-10-PCS; 2017-07-15)
DX: I25.110 Atherosclerotic heart disease of native coronary artery with unstable angina pectoris (principal); I24.9 Acute ischemic heart disease, unspecified; R07.9 Chest pain, unspecified; I16.0 Hypertensive urgency; F17.200 Nicotine dependence, unspecified, uncomplicated; E11.9 Type 2 diabetes mellitus without complications; Z82.49 Family history of ischemic heart disease and other diseases of the circulatory system; Z88.0 Allergy status to penicillin; Z79.899 Other long term (current) drug therapy; Z91.14 Patient's other noncompliance with medication regimen; Z71.6 Tobacco abuse counseling
CPT/HCPCS: 36415; 71010; 78452; 80048; 80061; 82550; 82553; 82962; 83036; 84484; 85014; 85018; 85025; 85027; 85049; 85347; 85379; 85520; 85610; 85730; 92921; 92928; 92978; 93005; 93010; 93017; 93306; 93458; 96372; A9270-GY; A9502; C1725; C1753; C1769; C1876; C1887; C1894; J1644; J1650; J2250; J2270; J2785; J3010; J3246; J7040; Q9967

== ENCOUNTER 2017-10-16 06:32 | Day surgery (SDC) | payer SELFPAY ==
[2017-10-16] MEDS ORDERED: ECOTRIN PO NR (06:54)
[2017-10-16] MEDS ORDERED: NACL 0.9% 500 ML 500 ML IV SCH (07:00)
[2017-10-16] MEDS ORDERED: PLAVIX ONE (07:09)
[2017-10-16] MEDS ORDERED: PLAVIX PO ONE (07:11)
[2017-10-16] MEDS: VERSED ONE ×2 (08:27→09:16)
[2017-10-16] MEDS: SUBLIMAZE ONE ×2 (08:27→09:16)
[2017-10-16] MEDS: HEPARIN 10,000 UNITS/10 ML ONE ×2 (08:28→09:17)
[2017-10-16] MEDS: CALAN ONE ×2 (08:28→09:17)
[2017-10-16] MEDS: XYLOCAINE 2% INFILTRATI ONE ×2 (08:28→09:16)
[2017-10-16] MEDS: HEPARIN/NS 5000 UNIT/500ML(CATH LAB) 1,000 ML IR ONE ×2 (08:53→09:16)
[2017-10-16] MEDS: NITROGLYCERIN SYRINGE 3 ML ONE ×2 (08:53→09:17)
[2017-10-16] MEDS ORDERED: LASIX ONE (09:26)
--- NOTE | 2017-10-16 09:49 | Short Stay Summary ---
Short Stay Documentation Date of service: 10/16/17 - History H&P: obtained from office - Allergies and Medications Current Medications: Allergies Penicillins Allergy (Verified 09/30/13 09:38) Rash Home Medications Medication Instructions Recorded Confirmed Last Taken Type Aspirin [Aspirin TAB] 325 mg PO QDAY #30 tablet 07/16/17 10/16/17 10/16/17 07: 11 Rx Clopidogrel [Plavix] 75 mg PO QDAY #30 tablet 07/16/17 10/16/17 10/16/17 07:11 Rx Metoprolol [Lopressor TAB] 50 mg PO BID #60 tablet 07/16/17 10/16/17 10/15/17 Rx AtorvaSTATin [Lipitor] 80 mg PO QHS 10/16/17 10/16/17 10/15/17 History ISOSORBIDE MONOnitrate [Imdur ER] 60 mg PO QDAY 10/16/17 10/16/17 10/15/17 History Active Medications Aspirin (Ecotrin) 325 mg PO ONCE NR Stop: 10/16/17 10:00 Last Admin: 10/16/17 07:11 Dose: 325 mg Sodium Chloride (Nacl 0.9% 500 Ml) 500 mls @ 50 mls/hr IV DIRECT ALEX Stop: 10/16/17 16:59 Last Admin: 10/16/17 07:15 Dose: 50 mls/hr - Brief post op/procedure progress note Date of procedure: 10/16/17 Pre-op diagnosis: sob Post-op diagnosis: same Procedure: see report Anesthesia: local Estimated blood loss: none Pathology: none - Disposition Condition at discharge: Good Disposition: DC-01 TO HOME OR SELFCARE - Discharge Diagnoses (1) SOB (shortness of breath) on exertion Status: Acute (2) Smoker Status: Chronic (3) Hyperlipemia, mixed Status: Chronic (4) CAD (coronary artery disease) Status: Chronic Qualifiers: Coronary Disease-Associated Artery/Lesion type: [place] artery Associated angina: with stable angina (5) Diabetes mellitus type 2, uncontrolled Status: Chronic Qualifiers: Diabetes mellitus chcf insulin use: with middle or 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 Diabetes mellitus complication status: with circulatory complication Diabetes mellitus complication detail: with other circulatory complications Qualified Code(s): E11.59 - Type 2 diabetes mellitus with other circulatory complications; E11.65 - Type 2 diabetes mellitus with hyperglycemia; Z79.4 - buttermaker continuous churn (current) use of insulin (6) Hypertension Status: Chronic Qualifiers: Hypertension type: essential hypertension Short Stay Discharge Plan Activity: advance as tolerated Diet: low fat, low cholesterol, low salt Wound: keep clean and dry Follow up with: VIRAL TOLBERT MD [Primary Care Provider] - 7 Days
--- NOTE | 2017-10-16 10:31 | Cardiac Catherization Report ---
ORDERING PHYSICIAN: Dr. Mckenzie. CLINICAL INFORMATION: The patient is a 52-year-old -[place] gentleman with known coronary artery disease. In June, had a PCI of his distal LAD with Xience 3.0 x 15 and had a percutaneous balloon angioplasty with diagonal 1 with normal LV function, presents with recurrent chest pain and shortness of breath with exertion despite medical therapy. Moderate sedation was performed, under my supervision 1 mg of Versed and 50 mcg of fentanyl. Total sedation time was 20 minutes. Start time 1915 and end time 1935 ____. PROCEDURE DETAILS: Left heart catheterization performed right radial artery, sterile technique, local anesthesia. Normal Paul's test. A 6-Swiss radial sheath inserted. PROCEDURE FINDINGS: Left system engaged with a JL3.5 catheter, left main, a large caliber vessel is patent and bifurcates into large LAD, proximal to mid is patent. Distal stent is widely patent. Diagonal 1 is extremely small vessel about 15 with a 90% and sluggish flow. Circumflex and AV groove is a medium caliber vessel is patent. Ramus is a small to medium caliber vessel that is patent. OM1 is a small caliber vessel, it is patent. OM2 is a small caliber vessel, is patent. OM3 is a medium caliber vessel, is patent. RCA engaged with JR4 catheter, is a large dominant vessel, patent with mild luminal irregularities. PDA and PLV are medium caliber vessel, patent with mild irregularities. LV gram done in [place] and PEREZ view shows normal function, EF 55-60%. LVEDP of 30-35 mmHg. LV was 140, aortic is 131 and 99. No gradient across the aortic valve pullback, 5-Swiss catheters were taken over guidewire, 6-Swiss radial sheath was discontinued. Radial dressing applied. No hematoma, no bleeding. SUMMARY: 1. Left main patent, LAD patent with mid distal stent patent. Diagonal 1 is a small caliber vessel with sluggish flow. Circumflex patent, OM1, 2, and 3 patent, RCA patent, mild luminal irregularities. 2. Normal LV function, elevated left end-diastolic pressure. Continue BP medications. Discussed this with the patient in detail. JOB# [id number] VRM/NTS
[2017-10-16 12:00] VITALS: BP 124/82
== END 2017-10-16 12:30 | disposition home or self-care (01) ==
LOC: CATHLABREC 06:32
PROVIDERS: ATTEND Internal Medicine
DX: I25.10 Atherosclerotic heart disease of native coronary artery without angina pectoris (principal); F17.210 Nicotine dependence, cigarettes, uncomplicated; E11.9 Type 2 diabetes mellitus without complications; Z88.0 Allergy status to penicillin; Z79.82 Long term (current) use of aspirin; Z79.899 Other long term (current) drug therapy
CPT/HCPCS: 93005; 93010; 93458; 99156; C1894; J1644; J1940; J2250; J3010; J7040; J0153; Q9967

== ENCOUNTER 2018-04-15 18:38 | Emergency (ER) | payer SELFPAY ==
[2018-04-15] MEDS ORDERED: ASPIRIN PO ONE (20:27)
[2018-04-15 21:20] LABS: Basophils % (Auto) 0.5 % (0.0-1.8); Eosinophils # (Auto) 0.3 K/mm3 (0.0-0.4); Eosinophils % (Auto) 4.1 % (0.0-4.3); Hematocrit 43.1 % (35.5-45.6); Hemoglobin 14.7 gm/dl (11.8-15.2); Lymphocytes # (Auto) 2.8 K/mm3 (1.2-5.4); Lymphocytes % (Auto) 34.3 % (13.4-35.0); Mean Corpuscular HGB Conc 34 % (32-34); Mean Corpuscular Hemoglobin 33 pg (28-32); Mean Corpuscular Volume 98 fl (84-94); Monocytes # (Auto) 0.6 K/mm3 (0.0-0.8); Monocytes % (Auto) 6.9 % (0.0-7.3); Platelet Count 231 K/mm3 (140-440); Red Blood Count 4.41 M/mm3 (3.65-5.03); Red Cell Distribution Width 13.4 % (13.2-15.2)
[2018-04-15 21:36] LABS: BUN/Creatinine Ratio 8; Blood Urea Nitrogen 8 mg/dL (9-20); Calcium 9.9 mg/dL (8.4-10.2); Hemolysis Index 84
[2018-04-16] MEDS ORDERED: SUBLIMAZE IV ONE (00:27)
[2018-04-16] MEDS ORDERED: NACL 0.9% 1000 ML 1,000 ML IV ONE (00:27)
[2018-04-16] MEDS ORDERED: PEPCID IV ONE (00:27)
--- NOTE | 2018-04-16 00:28 | Emergency Department Report ---
ED General Adult HPI - General Chief complaint: Chest Pain Stated complaint: ABD/CHEST PAIN Time Seen by Provider: 04/16/18 00:13 Source: patient, RN notes reviewed, old records reviewed Mode of arrival: Ambulatory Limitations: No Limitations - History of Present Illness Initial comments: This is a 52-year-old gentleman who is not known to this provider previously. His toe puncher is Dr. Rutledge He has a past medical history of heart disease with stent. He also has a history of diabetes. He denies history of abdominal surgeries. He presents to the ER with a main complaint of abdominal pain and back pain. The pain started a day and a half ago, started in the right flank and right paralumbar area, and radiates around to the epigastric region. Since it started to radiate, it now radiates from the funds to the back bilaterally. He denies testicular pain, but endorses urinary frequency. He also indicates a secondary complaint of left-sided chest pain. The chest pain started yesterday, is intermittent, does not radiate anywhere, does not have exacerbating or relieving factors. He denies diaphoresis, has chronic shortness of breath, denies DVT, pulmonary embolus risk factors, and indicates mild nausea and vomiting. The chest pain lasted for a few seconds and has since resolved. He indicates compliance with his antiplatelet therapy. He does not have any chest pain at this time. His main complaint is back pain, and abdominal pain. -: Gradual Location: chest, back, abdomen Quality: aching Consistency: intermittent Improves with: other Worsens with: other Associated Symptoms: chest pain, nausea/vomiting, shortness of breath (chronic) . denies: confusion, cough, diaphoresis, fever/chills, headaches, loss of appetite, rash, seizure, syncope, weakness - Related Data Home Medications Medication Instructions Recorded Confirmed Last Taken AtorvaSTATin [Lipitor] 80 mg PO QHS 10/16/17 10/16/17 10/15/17 ISOSORBIDE MONOnitrate [Imdur ER] 60 mg PO QDAY 10/16/17 10/16/17 10/15/17 Previous Rx's Medication Instructions Recorded Last Taken Type Aspirin [Aspirin TAB] 325 mg PO QDAY #30 tablet 07/16/17 10/16/17 07:11 Rx Clopidogrel [Plavix] 75 mg PO QDAY #30 tablet 07/16/17 10/16/17 07:11 Rx Metoprolol [Lopressor TAB] 50 mg PO BID #60 tablet 07/16/17 10/15/17 Rx Acetaminophen [Tylenol Arthritis] 650 mg PO Q6HR PRN #30 tablet.er 04/16/18 Unknown Rx Ibuprofen [Motrin] 600 mg PO Q8H PRN #30 tablet 04/16/18 Unknown Rx Allergies Allergy/AdvReac Type Severity Reaction Status Date / Time Penicillins Allergy Rash Verified 09/30/13 09:38 ED Review of Systems ROS: Stated complaint: ABD/CHEST PAIN Other details as noted in HPI Comment: All other systems reviewed and negative ED Past Medical Hx - Past Medical History Previous Medical History?: Yes Hx Hypertension: Yes Hx Heart Attack/AMI: Yes Hx Diabetes: Yes (borderline) Hx GERD: Yes Hx Arthritis: Yes Hx HIV: No - Surgical History Past Surgical History?: Yes Hx Coronary Stent: Yes (06/2017, stents 2017) - Social History Smoking Status: Current Every Day Smoker Substance Use Type: None - Medications Home Medications: Home Medications Medication Instructions Recorded Confirmed Last Taken Type Aspirin [Aspirin TAB] 325 mg PO QDAY #30 tablet 07/16/17 10/16/17 10/16/17 07: 11 Rx Clopidogrel [Plavix] 75 mg PO QDAY #30 tablet 07/16/17 10/16/17 10/16/17 07:11 Rx Metoprolol [Lopressor TAB] 50 mg PO BID #60 tablet 07/16/17 10/16/17 10/15/17 Rx AtorvaSTATin [Lipitor] 80 mg PO QHS 10/16/17 10/16/17 10/15/17 History ISOSORBIDE MONOnitrate [Imdur ER] 60 mg PO QDAY 10/16/17 10/16/17 10/15/17 History Acetaminophen [Tylenol Arthritis] 650 mg PO Q6HR PRN #30 tablet.er 04/16/18 Unknown Rx Ibuprofen [Motrin] 600 mg PO Q8H PRN #30 tablet 04/16/18 Unknown Rx ED Physical Exam - General Limitations: No Limitations General appearance: alert, in no apparent distress - Head Head exam: Present: atraumatic, normocephalic - Eye Eye exam: Present: normal appearance, EOMI. Absent: nystagmus - ENT ENT exam: Present: normal exam, normal orophraynx, mucous membranes moist, normal external ear exam - Neck Neck exam: Present: normal inspection, full ROM. Absent: tenderness, meningismus - Respiratory Respiratory exam: Present: normal lung sounds bilaterally. Absent: respiratory distress - Cardiovascular Cardiovascular Exam: Present: regular rate, normal rhythm, normal heart sounds. Absent: bradycardia, tachycardia, irregular rhythm, systolic murmur, diastolic murmur, rubs, gallop - GI/Abdominal GI/Abdominal exam: Present: soft, tenderness, normal bowel sounds. Absent: distended, guarding, rebound, rigid, pulsatile mass - Rectal Rectal exam: Present: deferred - exam: Present: normal inspection, other (there is no testicular tenderness. There is normal testicular lie bilaterally. There is normal cremasteric reflex bilaterally.). Absent: testicular tenderness External exam: Present: normal external exam, other (chaperoned by NARDA LYNNE ) - Extremities Exam Extremities exam: Present: normal inspection, full ROM, normal capillary refill , other (2+ pulses noted in the bilateral upper, lower extremities. Compartments soft. No long bony tenderness. The pelvis is stable.). Absent: tenderness, pedal edema, joint swelling, calf tenderness - Back Exam Back exam: Present: normal inspection, full ROM. Absent: tenderness, CVA tenderness (R), paraspinal tenderness, vertebral tenderness - Neurological Exam Neurological exam: Present: alert, oriented X3, CN II-XII intact, normal gait, other (Extraocular movements intact. Tongue midline. No facial droop. Facial sensation intact to light touch in the V1, V2, V3 distribution bilaterally. 5 and 5 strength in 4 extremities.. Sensation is intact to light touch in 4 extremities.). Absent: motor sensory deficit - Psychiatric Psychiatric exam: Present: normal affect, normal mood - Skin Skin exam: Present: warm, dry, intact, normal color. Absent: rash ED Course Vital Signs 04/15/18 04/16/18 04/16/18 19:45 00:40 01:30 Temperature 98.2 F Pulse Rate 84 95 H 66 Respiratory 18 15 18 Rate Blood Pressure 118/85 129/93 O2 Sat by Pulse 98 97 100 Oximetry - Reevaluation(s) Reevaluation #1: 04/16/18 02:21 Differential diagnosis, including but not limited to: GERD, gastritis, hiatal hernia, cholecystitis, pneumonia, pulmonary embolus, renal colic, appendicitis, inflammatory bowel disease, acute coronary syndrome Assessment and plan: 52-year-old gentleman with a primary complaint of back pain , epigastric pain, and abdominal pain. He is tender in the right lower quadrant and right flank. He has a negative Miller sign. He has a negative Rovsing sign. He isn't unremarkable and benign testicular examination. CT scan of the abdomen and pelvis is pending. He has no chest pain at this time. His EKG is morphologically unremarkable 2. His troponin is unremarkable 2 and within normal limits 2. The patient had a cardiac catheterization September 2017. It showed left main patent, LAD patent with mid distal stents patent, medical management was recommended. He is chest pain-free at this time. Reevaluation #2: 04/16/18 03:41 Troponin is negative 3. CT scan of the chest is negative. Reevaluation #3: 04/16/18 04:51 CT scan of the abdomen and pelvis is negative for acute disease. Patient is sleeping comfortably and reports that his chest pain has been resolved for hours , and that his abdominal pain is much improved. His urinalysis is reviewed and appreciated, and is more suggestive of asymptomatic bacteriuria. He endorses no irritative or obstructive urinary symptoms and he endorsed sexual monogamy with his . He endorses that he is reliable to follow-up with his outpatient toe puncher within the next couple days for his chest pain. Patient has been in the ER for 10 hours without clinical decompensation, his troponin is negative 3 and his EKG is unchanged 2. low risk for mace by heart, claudia score ED Medical Decision Making - Lab Data Result diagrams: 04/15/18 20:45 04/15/18 20:45 Vital Signs 04/15/18 04/16/18 04/16/18 19:45 00:40 01:30 Temperature 98.2 F Pulse Rate 84 95 H 66 Respiratory 18 15 18 Rate Blood Pressure 118/85 129/93 O2 Sat by Pulse 98 97 100 Oximetry Lab Results 04/15/18 04/15/18 04/15/18 Range/Units 20:45 20:45 23:17 WBC 8.1 (4.5-11.0) K/mm3 RBC 4.41 (3.65-5.03) M/mm3 Hgb 14.7 (11.8-15.2) gm/dl Hct 43.1 (35.5-45.6) % MCV 98 H (84-94) fl MCH 33 H (28-32) pg MCHC 34 (32-34) % RDW 13.4 (13.2-15.2) % Plt Count 231 (140-440) K/mm3 Lymph % (Auto) 34.3 (13.4-35.0) % Briscoe % (Auto) 6.9 (0.0-7.3) % Eos % (Auto) 4.1 (0.0-4.3) % Baso % (Auto) 0.5 (0.0-1.8) % Lymph # 2.8 (1.2-5.4) K/mm3 Briscoe # 0.6 (0.0-0.8) K/mm3 Eos # 0.3 (0.0-0.4) K/mm3 Baso # 0.0 (0.0-0.1) K/mm3 Seg Neutrophils % 54.2 (40.0-70.0) % Seg Neutrophils # 4.4 (1.8-7.7) K/mm3 Sodium 144 (137-145) mmol/L Potassium 4.9 (3.6-5.0) mmol/L Chloride 105.0 (98-107) mmol/L Carbon Dioxide 27 (22-30) mmol/L Anion Gap 17 mmol/L BUN 8 L (9-20) mg/dL Creatinine 1.0 (0.8-1.5) mg/dL Estimated GFR > 60 ml/min BUN/Creatinine Ratio 8 % Glucose 101 H (75-100) mg/dL Calcium 9.9 (8.4-10.2) mg/dL Total Bilirubin 0.30 (0.1-1.2) mg/dL Direct Bilirubin < 0.2 (0-0.2) mg/dL Indirect Bilirubin 0.1 mg/dL AST 20 (5-40) units/L ALT 27 (7-56) units/L Alkaline Phosphatase 114 (35-129) units/L Troponin T < 0.010 < 0.010 (0.00-0.029) ng/mL Total Protein 7.0 (6.3-8.2) g/dL Albumin 4.5 (3.9-5) g/dL Albumin/Globulin Ratio 1.8 % Lipase 30 (13-60) units/L - EKG Data -: EKG Interpreted by Me EKG shows normal: sinus rhythm Rate: normal - EKG Data 04/16/18 02:24 EKG #1 demonstrates normal sinus, normal axis, normal intervals, poor progression, not a STEMI, EKG #2 is unchanged. Patient is chest pain-free at this time. - Radiology Data Radiology results: report reviewed, image reviewed X-ray chest, interpreted by myself, radiology, negative for acute disease Critical care attestation.: If time is entered above; I have spent that time in minutes in the direct care of this critically ill patient, excluding procedure time. ED Disposition Clinical Impression: Lower abdominal pain, History of chest pain Disposition: TO HOME OR SELFCARE Is pt being admited?: No Does the pt Need Aspirin: No Condition: Good Additional Instructions: Continue current outpatient medications. If the patient takes metformin, it should be held for the next 48 hours. Patient should follow-up with his toe puncher within the next 3 days for repeat checkup/evaluation for chest pain. Patient should follow-up in the next 3-5 days with a primary care doctor for his abdominal pain. Alternatively, patient may return to the ER for repeat checkup/evaluation of his abdominal pain. Take pain medications as needed/directed. Advance diet and eat diet as tolerated. Return to the ER right away with new pain, worsened pain, migration of pain, projectile vomiting, change in mental status, confusion, inability to tolerate liquid feeds. Referrals: OBED RUTLEDGE MD [Staff Physician] - 3-5 Days [facility] [Provider Group] - 3-5 Days
[2018-04-16 00:57] LABS: Alanine Aminotransferase 27 units/L (7-56); Albumin 4.5 g/dL (3.9-5); Bilirubin,Direct < 0.2 mg/dL (0-0.2); Lipase 30 units/L (13-60)
[2018-04-16] MEDS ORDERED: BABY ASPIRIN ONE (01:13)
--- NOTE | 2018-04-16 01:46 | XRay Report ---
FINAL REPORT EXAM: XR CHEST ROUTINE 2V HISTORY: cp TECHNIQUE: 2 views of the chest. PRIORS: None. FINDINGS: The cardiomediastinal silhouette appears normal. The lungs are clear. The bones and soft tissues are unremarkable. IMPRESSION: No evidence of acute cardiopulmonary disease
--- NOTE | 2018-04-16 03:22 | Cat Scan Report ---
FINAL REPORT EXAM: CT ANGIO CHEST HISTORY: chest pain abd pain TECHNIQUE: High-resolution helical axial images were obtained of the chest during intravenous administration of iodinated contrast. Images are reconstructed in the sagittal and coronal planes. PRIORS: None. FINDINGS: There is no evidence of pulmonary embolism, the pulmonary arteries opacify normally. The heart and thoracic aorta appear normal. The lungs are clear. Images through the upper abdomen are unremarkable. The bones are unremarkable. IMPRESSION: 1. No evidence of pulmonary embolism. 2. No acute findings in the chest
--- NOTE | 2018-04-16 04:04 | Cat Scan Report ---
FINAL REPORT EXAM: CT ABDOMEN PELVIS W CON HISTORY: abd pain luq TECHNIQUE: Helical CT scan through the abdomen and pelvis during intravenous injection of iodinated contrast. Images are reconstructed in the sagittal and coronal planes. Oral contrast was not given. PRIORS: None. FINDINGS: The lung bases are clear. The liver, gallbladder, pancreas, spleen and adrenal glands appear normal. The kidneys appear normal. There is a 2 mm nonobstructing stone in the left kidney. The pelvic organs appear grossly normal. The stomach appears grossly within normal limits. There are no abnormally dilated loops of bowel or acute inflammatory changes. A normal-appearing appendix is identified. The abdominal aorta has a normal diameter. The bones and subcutaneous soft tissues are unremarkable for age. There is chronic bilateral sacroiliitis greater on the right than the left. IMPRESSION: No acute findings in the abdomen/pelvis 2 mm nonobstructing stone in the left kidney
[2018-04-16 04:29] LABS: Bacteria,Urine 1+ /HPF (Negative); Bilirubin,Urine NEG (Negative); Blood,Urine NEG (Negative); Color,Urine Yellow (Yellow); Mucus,Urine 3+ /HPF; Protein,Urine <15 mg/dL mg/dL (Negative); Urobilinogen,Urine < 2.0 mg/dL (<2.0)
[2018-04-16 04:52] VITALS: BP 125/88
== END 2018-04-16 05:24 | disposition home or self-care (01) ==
LOC: ED 18:38
DX: R10.30 Lower abdominal pain, unspecified (principal); R07.89 Other chest pain; R11.2 Nausea with vomiting, unspecified; I10 Essential (primary) hypertension; E11.9 Type 2 diabetes mellitus without complications; K21.9 Gastro-esophageal reflux disease without esophagitis; M19.90 Unspecified osteoarthritis, unspecified site; F17.200 Nicotine dependence, unspecified, uncomplicated; Z86.73 Personal history of transient ischemic attack (TIA), and cerebral infarction without residual deficits; Z88.0 Allergy status to penicillin
CPT/HCPCS: 36415; 71046; 71275; 74177; 80048; 80074; 81001; 83690; 84484; 85025; 93005; 93010; 96361; 96374; 96375; 99285; J3010; J7030; Q9967

== ENCOUNTER 2018-04-26 15:31 | Emergency (ER) | payer SELFPAY ==
[2018-04-26] MEDS ORDERED: NACL 0.9% 1000 ML 1,000 ML IV ONE (16:03)
[2018-04-26 16:36] LABS: Basophils # (Auto) 0.1 K/mm3 (0.0-0.1); Basophils % (Auto) 0.8 % (0.0-1.8); Eosinophils # (Auto) 0.2 K/mm3 (0.0-0.4); Eosinophils % (Auto) 3.1 % (0.0-4.3); Hematocrit 41.2 % (35.5-45.6); Hemoglobin 14.2 gm/dl (11.8-15.2); Lymphocytes # (Auto) 2.2 K/mm3 (1.2-5.4); Lymphocytes % (Auto) 28.5 % (13.4-35.0); Mean Corpuscular HGB Conc 35 % (32-34); Mean Corpuscular Hemoglobin 34 pg (28-32); Mean Corpuscular Volume 97 fl (84-94); Monocytes # (Auto) 0.5 K/mm3 (0.0-0.8); Monocytes % (Auto) 6.6 % (0.0-7.3); Platelet Count 212 K/mm3 (140-440); Red Blood Count 4.23 M/mm3 (3.65-5.03); Red Cell Distribution Width 13.1 % (13.2-15.2)
[2018-04-26 16:47] LABS: Alanine Aminotransferase 21 units/L (7-56); Albumin 4.6 g/dL (3.9-5); BUN/Creatinine Ratio 8; Blood Urea Nitrogen 9 mg/dL (9-20); Calcium 9.5 mg/dL (8.4-10.2); Hemolysis Index 9
[2018-04-26] MEDS ORDERED: PEPCID IV ONE (21:59)
[2018-04-26] MEDS ORDERED: CARAFATE PO ONE (21:59)
[2018-04-26] MEDS ORDERED: DILAUDID IV ONE (21:59)
--- NOTE | 2018-04-26 22:00 | Emergency Department Report ---
ED General Adult HPI - General Chief complaint: Abdominal Pain Stated complaint: ABD PAIN Time Seen by Provider: 04/26/18 21:48 Source: patient, RN notes reviewed, old records reviewed Mode of arrival: Ambulatory Limitations: No Limitations - History of Present Illness Initial comments: This is a 52-year-old gentleman. I have evaluated this patient in the past. Please see my note from 04/16/2018 for the full details of his past medical history. Patient had extensive workup for epigastric abdominal pain and possible chest pain, including multiple negative troponins, and a negative CT scan of the chest , abdomen, pelvis. The patient presents to the ER today with complaints of recurrent epigastric pain which feels bandlike and radiates to the back. There is no vomiting, diaphoresis or shortness of breath and the patient denies DVT, pulmonary embolus risk factors. The pain increases with palpation and laying flat. He denies lower abdominal pain and he denies urinary symptoms. He reports that he felt fine after his previous evaluation 10 days ago, his pain recurred today at 1:00 PM. -: Gradual Location: abdomen Radiation: back Severity scale (0 -10): 6 Quality: burning, aching Consistency: intermittent Improves with: rest Worsens with: movement Associated Symptoms: denies: confusion, chest pain, cough, diaphoresis, fever/ chills, headaches, loss of appetite, malaise, nausea/vomiting, rash, seizure, shortness of breath, syncope, weakness - Related Data Home Medications Medication Instructions Recorded Confirmed Last Taken AtorvaSTATin [Lipitor] 80 mg PO QHS 10/16/17 10/16/17 10/15/17 ISOSORBIDE MONOnitrate [Imdur ER] 60 mg PO QDAY 10/16/17 10/16/17 10/15/17 Previous Rx's Medication Instructions Recorded Last Taken Type Aspirin [Aspirin TAB] 325 mg PO QDAY #30 tablet 07/16/17 10/16/17 07:11 Rx Clopidogrel [Plavix] 75 mg PO QDAY #30 tablet 07/16/17 10/16/17 07:11 Rx Metoprolol [Lopressor TAB] 50 mg PO BID #60 tablet 07/16/17 10/15/17 Rx Acetaminophen [Tylenol Arthritis] 650 mg PO Q6HR PRN #30 tablet.er 04/16/18 Unknown Rx Ibuprofen [Motrin] 600 mg PO Q8H PRN #30 tablet 04/16/18 Unknown Rx Famotidine [Pepcid] 20 mg PO BID #60 tablet 04/26/18 Unknown Rx Sucralfate [Carafate] 1 gm PO Q6HR #120 tablet 04/26/18 Unknown Rx Allergies Allergy/AdvReac Type Severity Reaction Status Date / Time Penicillins Allergy Rash Verified 09/30/13 09:38 ED Review of Systems ROS: Stated complaint: ABD PAIN Other details as noted in HPI Comment: All other systems reviewed and negative Gastrointestinal: abdominal pain ED Past Medical Hx - Past Medical History Hx Hypertension: Yes Hx Heart Attack/AMI: Yes Hx Diabetes: Yes (borderline) Hx GERD: Yes Hx Arthritis: Yes Hx HIV: No - Surgical History Hx Coronary Stent: Yes (06/2017, stents 2017) - Social History Smoking Status: Current Every Day Smoker Substance Use Type: None - Medications Home Medications: Home Medications Medication Instructions Recorded Confirmed Last Taken Type Aspirin [Aspirin TAB] 325 mg PO QDAY #30 tablet 07/16/17 10/16/17 10/16/17 07: 11 Rx Clopidogrel [Plavix] 75 mg PO QDAY #30 tablet 07/16/17 10/16/17 10/16/17 07:11 Rx Metoprolol [Lopressor TAB] 50 mg PO BID #60 tablet 07/16/17 10/16/17 10/15/17 Rx AtorvaSTATin [Lipitor] 80 mg PO QHS 10/16/17 10/16/17 10/15/17 History ISOSORBIDE MONOnitrate [Imdur ER] 60 mg PO QDAY 10/16/17 10/16/17 10/15/17 History Acetaminophen [Tylenol Arthritis] 650 mg PO Q6HR PRN #30 tablet.er 04/16/18 Unknown Rx Ibuprofen [Motrin] 600 mg PO Q8H PRN #30 tablet 04/16/18 Unknown Rx Famotidine [Pepcid] 20 mg PO BID #60 tablet 04/26/18 Unknown Rx Sucralfate [Carafate] 1 gm PO Q6HR #120 tablet 04/26/18 Unknown Rx ED Physical Exam - General Limitations: No Limitations General appearance: alert, in no apparent distress - Head Head exam: Present: atraumatic, normocephalic - Eye Eye exam: Present: normal appearance, EOMI. Absent: nystagmus - ENT ENT exam: Present: normal exam, normal orophraynx, mucous membranes moist, normal external ear exam - Neck Neck exam: Present: normal inspection, full ROM. Absent: tenderness, meningismus - Respiratory Respiratory exam: Present: normal lung sounds bilaterally. Absent: respiratory distress - Cardiovascular Cardiovascular Exam: Present: regular rate, normal rhythm, normal heart sounds. Absent: bradycardia, tachycardia, irregular rhythm, systolic murmur, diastolic murmur, rubs, gallop - GI/Abdominal GI/Abdominal exam: Present: soft, tenderness. Absent: distended, guarding, rebound, rigid, pulsatile mass - Rectal Rectal exam: Present: deferred - Extremities Exam Extremities exam: Present: normal inspection, full ROM, normal capillary refill , other (2+ pulses noted in the bilateral upper, lower extremities. Compartments soft. No long bony tenderness. The pelvis is stable.). Absent: tenderness, pedal edema, joint swelling, calf tenderness - Back Exam Back exam: Present: normal inspection, full ROM. Absent: tenderness, CVA tenderness (R), paraspinal tenderness, vertebral tenderness - Neurological Exam Neurological exam: Present: alert, oriented X3, CN II-XII intact, normal gait, other (Extraocular movements intact. Tongue midline. No facial droop. Facial sensation intact to light touch in the V1, V2, V3 distribution bilaterally. 5 and 5 strength in 4 extremities.. Sensation is intact to light touch in 4 extremities.). Absent: motor sensory deficit - Psychiatric Psychiatric exam: Present: normal affect, normal mood - Skin Skin exam: Present: warm, dry, intact, normal color. Absent: rash ED Course Vital Signs 04/26/18 04/26/18 04/26/18 15:57 21:49 21:52 Temperature 98.9 F Pulse Rate 82 77 Respiratory 18 12 20 Rate Blood Pressure 122/82 O2 Sat by Pulse 97 Oximetry 04/26/18 04/26/18 04/26/18 22:00 22:15 22:49 Temperature Pulse Rate 75 68 75 Respiratory 11 L 11 L 13 Rate Blood Pressure 126/88 123/84 O2 Sat by Pulse 99 97 Oximetry 04/26/18 04/26/18 04/26/18 22:55 23:00 23:15 Temperature Pulse Rate 72 67 69 Respiratory 15 14 13 Rate Blood Pressure 124/86 129/89 125/85 O2 Sat by Pulse 100 99 100 Oximetry 04/26/18 04/26/18 04/27/18 23:31 23:45 00:00 Temperature Pulse Rate 78 70 68 Respiratory 10 L 13 17 Rate Blood Pressure 124/87 132/96 131/90 O2 Sat by Pulse 99 97 97 Oximetry 04/27/18 04/27/18 04/27/18 00:15 00:30 00:45 Temperature Pulse Rate 68 70 78 Respiratory 18 19 12 Rate Blood Pressure 140/100 130/94 143/102 O2 Sat by Pulse 98 99 97 Oximetry 04/27/18 04/27/18 04/27/18 01:00 01:15 01:25 Temperature 98.9 F Pulse Rate 68 73 73 Respiratory 19 15 15 Rate Blood Pressure 140/99 139/97 O2 Sat by Pulse 98 98 Oximetry - Reevaluation(s) Reevaluation #1: 04/26/18 22:42 Differential diagnosis, including but not limited to: GERD, gastritis, hiatal hernia, acute coronary syndrome, pancreatitis, pneumonia Assessment and plan: 52-year-old gentleman with recurrent epigastric pain, I have evaluated this patient for similar symptoms within the past month. When I previously saw the patient his objective testing was unremarkable for acute disease, pathology. He was instructed to follow up with outpatient cardiology and he reports that he has a follow-up appointment on May 11. His EKG today is morphologically unchanged from prior EKG from 04/15/2018. In addition, the patient had a cardiac catheterization earlier on this year, September 2017, which did not demonstrate significant disease, demonstrated normal stents that were patent, and medical management was recommended. He denies DVT and pulmonary embolus risk factors. I find him to be low risk by well's criteria. Today he appears to be slowly more tender than on a previous examination, so we will give him pain medication, obtain chest x-ray, and repeat his CT scan to assess for interval change. I doubt atypical presentation of acute coronary syndrome, and I have also discussed the case with covering plunger scoop operator, Dr. Damon, who agrees to have the patient follow -up in the clinic next week either on Saturday or Saturday, assuming a negative workup in the emergency room today. ED Medical Decision Making - Lab Data Result diagrams: 04/26/18 16:18 04/26/18 16:18 Vital Signs 04/26/18 04/26/18 04/26/18 15:57 21:49 21:52 Temperature 98.9 F Pulse Rate 82 77 Respiratory 18 12 20 Rate Blood Pressure 122/82 O2 Sat by Pulse 97 Oximetry Lab Results 04/26/18 04/26/18 Range/Units 16:18 16:18 WBC 7.8 (4.5-11.0) K/mm3 RBC 4.23 (3.65-5.03) M/mm3 Hgb 14.2 (11.8-15.2) gm/dl Hct 41.2 (35.5-45.6) % MCV 97 H (84-94) fl MCH 34 H (28-32) pg MCHC 35 H (32-34) % RDW 13.1 L (13.2-15.2) % Plt Count 212 (140-440) K/mm3 Lymph % (Auto) 28.5 (13.4-35.0) % Piute % (Auto) 6.6 (0.0-7.3) % Eos % (Auto) 3.1 (0.0-4.3) % Baso % (Auto) 0.8 (0.0-1.8) % Lymph # 2.2 (1.2-5.4) K/mm3 Piute # 0.5 (0.0-0.8) K/mm3 Eos # 0.2 (0.0-0.4) K/mm3 Baso # 0.1 (0.0-0.1) K/mm3 Seg Neutrophils % 61.0 (40.0-70.0) % Seg Neutrophils # 4.7 (1.8-7.7) K/mm3 Sodium 145 (137-145) mmol/L Potassium 4.3 (3.6-5.0) mmol/L Chloride 105.0 (98-107) mmol/L Carbon Dioxide 28 (22-30) mmol/L Anion Gap 16 mmol/L BUN 9 (9-20) mg/dL Creatinine 1.2 (0.8-1.5) mg/dL Estimated GFR > 60 ml/min BUN/Creatinine Ratio 8 % Glucose 99 (75-100) mg/dL Calcium 9.5 (8.4-10.2) mg/dL Total Bilirubin 0.30 (0.1-1.2) mg/dL AST 18 (5-40) units/L ALT 21 (7-56) units/L Alkaline Phosphatase 103 (35-129) units/L Troponin T < 0.010 (0.00-0.029) ng/mL Total Protein 7.3 (6.3-8.2) g/dL Albumin 4.6 (3.9-5) g/dL Albumin/Globulin Ratio 1.7 % - EKG Data -: EKG Interpreted by Me EKG shows normal: sinus rhythm, axis, intervals, QRS complexes, ST-T waves - EKG Data When compared to previous EKG there are: no significant change Interpretation: unchanged when compared t 04/26/18 22:44 Sinus, 80 bpm, normal axis, normal intervals, not a STEMI, this EKG is unchanged from prior EKG from 04/15/2018. - Radiology Data Radiology results: report reviewed, image reviewed X-ray of the chest is negative for acute disease Critical care attestation.: If time is entered above; I have spent that time in minutes in the direct care of this critically ill patient, excluding procedure time. ED Disposition Clinical Impression: Epigastric abdominal pain Disposition: DC-01 TO HOME OR SELFCARE Is pt being admited?: No Does the pt Need Aspirin: No Condition: Stable Additional Instructions: Discontinue consumption of Motrin, ibuprofen, Naprosyn, Aleve, NSAIDs. Do not consume heavy, spicy foods. Contact your plunger scoop operator's office on Saturday, and informed the front office staff that the ER has spoken to covering plunger scoop operator, Dr. Damon, who would like you to follow-up either on Saturday or Saturday. When speaking to the front office staff, informed them that the emergency department has specifically spoken to Dr. Damon, and he would like you to be seen either on Saturday or Saturday. In addition, patient is recommended to follow-up with a pharmacy tech within the next month. Return to the ER right away with new pain, worsened pain , migration of pain, projectile vomiting, change in mental status, confusion, inability to tolerate liquid feeds. Prescriptions: Famotidine [Pepcid] 20 mg PO BID #60 tablet Sucralfate [Carafate] 1 gm PO Q6HR #120 tablet Referrals: OBED BAL MD [Staff Physician] - 3-5 Days [facility] [Provider Group] - 3-5 Days
--- NOTE | 2018-04-26 22:45 | XRay Report ---
FINAL REPORT EXAM: XR CHEST ROUTINE 2V HISTORY: epigastric cp TECHNIQUE: Frontal and lateral chest x-ray. PRIORS: 16 April 2018. FINDINGS: Cardiac and mediastinal silhouette within normal limits. Lungs are normally expanded. No significant vascular congestion. No focal consolidation, apparent pleural effusion or pneumothorax. Bony thorax grossly unremarkable. IMPRESSION: 1. No acute findings.
[2018-04-26 22:54] LABS: Lipase 20 units/L (13-60)
--- NOTE | 2018-04-26 23:05 | Cat Scan Report ---
FINAL REPORT PROCEDURE: CT ABDOMEN PELVIS W CON TECHNIQUE: Computerized axial tomography of the abdomen and pelvis was performed after the IV injection of iodinated nonionic contrast. HISTORY: apigastric abd pain COMPARISON: No prior studies are available for comparison. FINDINGS: Liver, spleen, pancreas and bilateral adrenal glands are within normal limits. Bilateral kidneys demonstrate uniform enhancement without hydronephrosis. A 2 millimeter nonobstructive calculus is noted in midportion left kidney. Aorta is of normal caliber. Urinary bladder is unremarkable. There is no free fluid or free air. Gallbladder is contracted. Small bowel loops are within normal limits. Appendix is normal. Vertebral height is normal. IMPRESSION: No acute intra-abdominal or pelvic pathology. 2 millimeter nonobstructive calculus left kidney.
[2018-04-27 01:22] VITALS: BP 139/97
== END 2018-04-27 01:25 | disposition home or self-care (01) ==
LOC: ED 15:31
DX: R10.13 Epigastric pain (principal); I10 Essential (primary) hypertension; I25.2 Old myocardial infarction; E11.9 Type 2 diabetes mellitus without complications; K21.9 Gastro-esophageal reflux disease without esophagitis; M19.90 Unspecified osteoarthritis, unspecified site; F17.200 Nicotine dependence, unspecified, uncomplicated; Z88.0 Allergy status to penicillin
CPT/HCPCS: 36415; 71046; 74177; 80053; 83690; 84484; 85025; 93005; 93010; 96374; 96375; 99284; J1170; J7030; Q9967

== ENCOUNTER 2018-05-18 15:30 | Emergency (ER) | payer SELFPAY ==
[2018-05-18] MEDS ORDERED: ASPIRIN PO ONE (15:41)
[2018-05-18 15:58] LABS: Hematocrit 44.1 % (35.5-45.6); Mean Corpuscular HGB Conc 34 % (32-34); Mean Corpuscular Hemoglobin 33 pg (28-32); Mean Corpuscular Volume 96 fl (84-94); Platelet Count 181 K/mm3 (140-440); Red Blood Count 4.58 M/mm3 (3.65-5.03); Red Cell Distribution Width 13.1 % (13.2-15.2)
[2018-05-18 16:07] LABS: INR 0.93 (0.87-1.13)
[2018-05-18 16:08] LABS: Partial Thromboplastin Time 27.6 Sec. (24.2-36.6)
[2018-05-18 16:09] LABS: Eosinophils % (Auto) 4.4 % (0.0-4.3); Lymphocytes % (Auto) 38.1 % (13.4-35.0); Mean Platelet Volume 8.1 fl (6-12); Monocytes % (Auto) 6.8 % (0.0-7.3)
[2018-05-18 16:10] LABS: Basophils # (Auto) 0.1 K/mm3 (0.0-0.1); Eosinophils # (Auto) 0.2 K/mm3 (0.0-0.4); Lymphocytes # (Auto) 2.2 K/mm3 (1.2-5.4); Monocytes # (Auto) 0.4 K/mm3 (0.0-0.8)
--- NOTE | 2018-05-18 16:17 | Emergency Department Report ---
ED Chest Pain HPI - General Chief Complaint: Chest Pain Stated Complaint: CHEST PAIN Time Seen by Provider: 05/18/18 16:06 Source: patient Mode of arrival: Ambulatory Limitations: No Limitations - History of Present Illness Initial Comments: Patient is 52 years old male with history of coronary artery disease status post stent in July of 09/04/2017. History of diabetes. Patient presented to the ER complaining of substernal chest pain, heaviness in nature radiated to his left arm. Patient stated the pain associated with shortness of breath. Pain while he was resting. Patient denied any nausea or vomiting. No cough or fever. Patient also added that he is out of his Plavix for the last 3 days. MD Complaint: chest pain -: hour(s) Onset: during rest Pain Location: substernal Pain Radiation: LUE Severity: moderate Severity scale (0 -10): 5 Quality: heaviness, pressure Worsens With: exertion - Related Data Home Medications Medication Instructions Recorded Confirmed Last Taken AtorvaSTATin [Lipitor] 80 mg PO QHS 10/16/17 10/16/17 10/15/17 ISOSORBIDE MONOnitrate [Imdur ER] 60 mg PO QDAY 10/16/17 10/16/17 10/15/17 Previous Rx's Medication Instructions Recorded Last Taken Type Aspirin [Aspirin TAB] 325 mg PO QDAY #30 tablet 07/16/17 10/16/17 07:11 Rx Clopidogrel [Plavix] 75 mg PO QDAY #30 tablet 07/16/17 10/16/17 07:11 Rx Metoprolol [Lopressor TAB] 50 mg PO BID #60 tablet 07/16/17 10/15/17 Rx Acetaminophen [Tylenol Arthritis] 650 mg PO Q6HR PRN #30 tablet.er 04/16/18 Unknown Rx Ibuprofen [Motrin] 600 mg PO Q8H PRN #30 tablet 04/16/18 Unknown Rx Famotidine [Pepcid] 20 mg PO BID #60 tablet 04/26/18 Unknown Rx Sucralfate [Carafate] 1 gm PO Q6HR #120 tablet 04/26/18 Unknown Rx Allergies Allergy/AdvReac Type Severity Reaction Status Date / Time Penicillins Allergy Rash Verified 05/18/18 15:37 Heart Score - HEART Score History: Moderately suspicious EKG: Non-specific Age: 45-65 Risk factors: > 3 risk factors or hx of atherosclerotic disease Troponin: < normal limit HEART Score: 5 - Critical Actions Critical Actions: 4-6 pts:12-16.6% risk of adverse cardiac event. Should be admitted ED Review of Systems ROS: Stated complaint: CHEST PAIN Other details as noted in HPI Comment: All other systems reviewed and negative Constitutional: denies: chills, fever Respiratory: shortness of breath. denies: cough, orthopnea, SOB with exertion, SOB at rest, wheezing Cardiovascular: chest pain. denies: palpitations, dyspnea on exertion Gastrointestinal: denies: abdominal pain, nausea, vomiting, diarrhea, constipation, hematemesis, hematochezia Neurological: denies: headache, weakness, numbness, paresthesias, confusion ED Past Medical Hx - Past Medical History Hx Hypertension: Yes Hx Heart Attack/AMI: Yes Hx Diabetes: Yes (borderline) Hx GERD: Yes Hx Arthritis: Yes Hx HIV: No - Surgical History Hx Coronary Stent: Yes (06/2017, stents 2017) - Social History Smoking Status: Current Every Day Smoker Substance Use Type: None - Medications Home Medications: Home Medications Medication Instructions Recorded Confirmed Last Taken Type Aspirin [Aspirin TAB] 325 mg PO QDAY #30 tablet 07/16/17 10/16/17 10/16/17 07: 11 Rx Clopidogrel [Plavix] 75 mg PO QDAY #30 tablet 07/16/17 10/16/17 10/16/17 07:11 Rx Metoprolol [Lopressor TAB] 50 mg PO BID #60 tablet 07/16/17 10/16/17 10/15/17 Rx AtorvaSTATin [Lipitor] 80 mg PO QHS 10/16/17 10/16/17 10/15/17 History ISOSORBIDE MONOnitrate [Imdur ER] 60 mg PO QDAY 10/16/17 10/16/17 10/15/17 History Acetaminophen [Tylenol Arthritis] 650 mg PO Q6HR PRN #30 tablet.er 04/16/18 Unknown Rx Ibuprofen [Motrin] 600 mg PO Q8H PRN #30 tablet 04/16/18 Unknown Rx Famotidine [Pepcid] 20 mg PO BID #60 tablet 04/26/18 Unknown Rx Sucralfate [Carafate] 1 gm PO Q6HR #120 tablet 04/26/18 Unknown Rx ED Physical Exam - General Limitations: No Limitations General appearance: alert, in no apparent distress - Head Head exam: Present: atraumatic, normocephalic, normal inspection - Eye Eye exam: Present: normal appearance, PERRL - ENT ENT exam: Present: normal exam, normal orophraynx, mucous membranes moist - Neck Neck exam: Present: normal inspection, full ROM. Absent: tenderness, meningismus, lymphadenopathy, thyromegaly - Respiratory Respiratory exam: Present: normal lung sounds bilaterally. Absent: respiratory distress, wheezes, rales, rhonchi, stridor, chest wall tenderness, accessory muscle use, decreased breath sounds, prolonged expiratory - Cardiovascular Cardiovascular Exam: Present: regular rate, normal rhythm, normal heart sounds - GI/Abdominal GI/Abdominal exam: Present: soft, normal bowel sounds. Absent: distended, tenderness, guarding, rebound, rigid, organomegaly, mass, bruit, pulsatile mass - Extremities Exam Extremities exam: Present: normal inspection, full ROM, normal capillary refill. Absent: pedal edema, calf tenderness - Back Exam Back exam: Present: normal inspection, full ROM. Absent: tenderness, CVA tenderness (R), CVA tenderness (L), muscle spasm, paraspinal tenderness, vertebral tenderness - Neurological Exam Neurological exam: Present: alert, oriented X3, CN II-XII intact, normal gait, reflexes normal - Skin Skin exam: Present: warm, intact, normal color ED Course Vital Signs 05/18/18 15:37 Temperature 98.6 F Pulse Rate 71 Respiratory 18 Rate Blood Pressure 152/100 O2 Sat by Pulse 97 Oximetry ED Medical Decision Making - Lab Data Result diagrams: 05/18/18 15:44 05/18/18 15:44 - EKG Data -: EKG Interpreted by [facility] EKG shows normal: sinus rhythm Rate: normal - EKG Data Interpretation: no acute changes - Radiology Data Radiology results: report reviewed Referring Physician: LALA OWENS Patient Name: ROJAS HARRINGTON Date of : 1965 Sex: Male Report Date: 2018-05-18 Report Status: Finalized Findings [facility] [address] [place] [address] XRay Report Signed Patient: ROJAS HARRINGTON MR#: [id number] : 1965 Acct:[id number] Age/Sex: 52 / M ADM Date: 05/18/18 Loc: ED Attending Dr: Ordering Physician: LALA OWENS Date of Service: 05/18/18 Procedure(s): XR chest 1V ap Accession Number(s): [id number] cc: LALA OWENS Fluoro Time In Minutes: FINAL REPORT EXAM: XR CHEST 1V AP HISTORY: chest pain TECHNIQUE: Frontal portable view of the chest Comparison: Chest x-ray dated April 26, 2018 FINDINGS: There is no evidence of focal infiltrate, pneumothorax or pleural fluid collection. The cardiac silhouette appears to be enlarged. This may be exaggerated by portable technique. The thoracic aorta is unremarkable. The bony structures are notable for evidence of degenerative change of the acromioclavicular joints bilaterally. IMPRESSION: 1. No evidence of an acute pulmonary process. 2. The heart appears to be enlarged. This may be exaggerated by portable technique. 3. Degenerative change acromioclavicular joints bilaterally. Transcribed By: ED Dictated By: STEPHANIE SUTHERLAND MD Electronically Authenticated By: STEPHANIE SUTHERLAND MD Signed Date/Time: 05/18/181649 DD/ 49 TD/TT: 05/18/181649 - Medical Decision Making Mr Harrington is 52 years old male with history of coronary artery disease status post stent in July of 09/04/2017. History of diabetes. Patient presented to the ER complaining of substernal chest pain, heaviness in nature radiated to his left arm. Patient stated the pain associated with shortness of breath. Pain while he was resting. Patient denied any nausea or vomiting. No cough or fever. Patient also added that he is out of his Plavix for the last 3 days. Patient EKG is negative for acute finding. Chest x-ray is negative. First troponin is negative. D-dimer is negative. Lipase is negative. Given this patient history and a recent history of not taking his Plavix this chest pain most likely from coronary artery disease. I discussed the patient is Dr. Ace who agreed to admit the patient to medical service. Critical Care Time: Yes Critical care time in (mins) excluding proc time.: 30 Critical care attestation.: If time is entered above; I have spent that time in minutes in the direct care of this critically ill patient, excluding procedure time. ED Disposition Clinical Impression: ACS (acute coronary syndrome) Disposition: DC-09 OP ADMIT IP TO THIS HOSP Is pt being admited?: Yes Condition: Stable Referrals: PRIMARY CARE,MD [Primary Care Provider] - 3-5 Days
[2018-05-18 16:28] LABS: BUN/Creatinine Ratio 6; Blood Urea Nitrogen 6 mg/dL (9-20); Hemolysis Index 10
[2018-05-18 16:44] LABS: INR 0.91 (0.87-1.13)
--- NOTE | 2018-05-18 16:51 | XRay Report ---
FINAL REPORT EXAM: XR CHEST 1V AP HISTORY: chest pain TECHNIQUE: Frontal portable view of the chest Comparison: Chest x-ray dated April 26, 2018 FINDINGS: There is no evidence of focal infiltrate, pneumothorax or pleural fluid collection. The cardiac silhouette appears to be enlarged. This may be exaggerated by portable technique. The thoracic aorta is unremarkable. The bony structures are notable for evidence of degenerative change of the acromioclavicular joints bilaterally. IMPRESSION: 1. No evidence of an acute pulmonary process. 2. The heart appears to be enlarged. This may be exaggerated by portable technique. 3. Degenerative change acromioclavicular joints bilaterally.
[2018-05-18] MEDS ORDERED: PLAVIX PO ONE (18:00)
[2018-05-18] MEDS ORDERED: MORPHINE IV ONE (20:20)
[2018-05-18] MEDS ORDERED: ZOFRAN IV ONE (20:20)
[2018-05-18 22:35] VITALS: BP 136/87
--- NOTE | 2018-05-19 07:42 | Consultation ---
History of Present Illness - Reason for Consult Consult date: 05/18/18 Requesting physician: LALA OWENS - History of Present Illness 52 YO Male with HTN, AR, GERD, OA, Nicotine Dependence, CAD complicated by chronic stable angina presents with chest pain. Pt treated IAW chest pain protocol. Serial cardiac enzymes, ekg, and telemetry monitoring were negative for evidence of ischemia. D dimer was normal. Pt treated with supportive care with improvement in symptoms. Pt medically optimized, and counseled regarding diet, risk factor modification, and medication compliance. Pt states that he has only missed 1 dose of Plavix, but may have missed up to three doses of plavix over the past month. Pt discharged home and instructed to f/u pcp 1wk, and Cardiology in AM as outpatient. Past History Past Medical History: acute AR, arthritis, GERD, hypertension Past Surgical History: Other (Stent placement) Social history: , lives with family, smoking. denies: alcohol abuse, prescription drug abuse Family history: hypertension Medications and Allergies Allergies Allergy/AdvReac Type Severity Reaction Status Date / Time Penicillins Allergy Rash Verified 05/18/18 15:37 Home Medications Medication Instructions Recorded Confirmed Last Taken Type Metoprolol [Lopressor TAB] 50 mg PO BID #60 tablet 07/16/17 10/16/17 10/15/17 Rx Acetaminophen [Tylenol Arthritis] 650 mg PO Q6HR PRN #30 tablet.er 04/16/18 Unknown Rx Ibuprofen [Motrin] 600 mg PO Q8H PRN #30 tablet 04/16/18 Unknown Rx Sucralfate [Carafate] 1 gm PO Q6HR #120 tablet 04/26/18 Unknown Rx Aspirin [Aspirin TAB] 325 mg PO QDAY #30 tablet 05/18/18 Unknown Rx AtorvaSTATin [Lipitor] 80 mg PO QHS #30 tablet 05/18/18 Unknown Rx Clopidogrel [Plavix] 75 mg PO QDAY #30 tablet 05/18/18 Unknown Rx Famotidine [Pepcid] 20 mg PO BID #60 tablet 05/18/18 Unknown Rx ISOSORBIDE MONOnitrate [Imdur ER] 60 mg PO QDAY #30 tablet 05/18/18 Unknown Rx Review of Systems Constitutional: no weight gain, no fever, no chills, no sweats Ears, nose, mouth and throat: no ear pain, no ear discharge, no tinnitis, no decreased hearing, no nose pain, no nasal discharge, no sinus pressure Cardiovascular: chest pain, no orthopnea, no palpitations, no rapid/irregular heart beat, no edema, no syncope, no lightheadedness, no shortness of breath, no paroxysmal nocturnal dyspnea, no claudication, no phlebitis, no leg edema, no decreased exercise tolerance Respiratory: no cough, no cough with sputum, no excessive sputum, no hemoptysis Gastrointestinal: no abdominal pain, no nausea, no vomiting, no diarrhea, no constipation Genitourinary Male: no hematuria, no flank pain, no discharge, no urinary frequency, no urinary hesitancy Rectal: no pain, no incontinence, no bleeding Musculoskeletal: no neck stiffness, no neck pain, no shooting arm pain, no arm numbness/tingling, no low back pain, no shooting leg pain Integumentary: no rash, no pruritis, no redness, no sores, no wounds Neurological: no transient paralysis, no paralysis, no weakness, no parathesias , no numbness, no tingling Psychiatric: no anxiety, no memory loss, no change in sleep habits, no sleep disturbances, no insomnia, no hypersomnia Endocrine: no cold intolerance, no heat intolerance, no polyphagia, no excessive thirst, no polydipsia, no polyuria, no nocturia, no excessive sweating Hematologic/Lymphatic: no easy bruising, no easy bleeding, no lymphadenopathy, no lymphedema Allergic/Immunologic: no urticaria, no allergic rhinitis, no wheezing, no persistent infections, no anaphylaxis, no angioedema Exam - Constitutional Vitals: Temp Pulse Resp BP Pulse Ox 98.6 F 75 19 136/87 100 05/18/18 15:37 05/18/18 22:15 05/18/18 22:15 05/18/18 22:15 05/18/18 22:15 General appearance: Present: no acute distress, well-nourished - EENT Eyes: Present: PERRL ENT: hearing intact, clear oral mucosa - Neck Neck: Present: supple, normal ROM - Respiratory Respiratory effort: normal Respiratory: bilateral: CTA - Cardiovascular Heart Sounds: Present: S1 & S2. Absent: rub, click - Extremities Extremities: pulses symmetrical, No edema Peripheral Pulses: within normal limits - Abdominal General gastrointestinal: Present: soft, non-tender, non-distended, normal bowel sounds Male genitourinary: Present: normal - Integumentary Integumentary: Present: clear, warm, dry - Musculoskeletal Musculoskeletal: gait normal, strength equal bilaterally - Psychiatric Psychiatric: appropriate mood/affect, intact judgment & insight - Neurologic Neurologic: CNII-XII intact, moves all extremities Results - Labs CBC & Chem 7: 05/18/18 15:44 05/18/18 15:44 Labs: Abnormal lab results 05/18/18 05/18/18 05/18/18 Range/Units 15:44 15:44 16:14 MCV 96 H (84-94) fl MCH 33 H (28-32) pg RDW 13.1 L (13.2-15.2) % Lymph % (Auto) 38.1 H (13.4-35.0) % Eos % (Auto) 4.4 H (0.0-4.3) % Baso % (Auto) 2.0 H (0.0-1.8) % APTT 23.0 L (24.2-36.6) Sec. BUN 6 L (9-20) mg/dL Assessment and Plan - Patient Problems (1) Chronic stable angina Status: Acute Plan to address problem: Pt restarted on DAPT, as well as IMDUR. Pt treated IAW ACS protocol. Cardiac workup negative, Pt discharged home and instructed to f/u with cardiology in AM. (2) CAD (coronary artery disease) Status: Acute Qualifiers: Coronary Disease-Associated Artery/Lesion type: circle artery [place] vs. transplanted heart: circle heart Associated angina: with stable angina Qualified Code(s): I25.118 - Atherosclerotic heart disease of circle coronary artery with other forms of angina pectoris Plan to address problem: Pt counseled regarding risk factor modification, low cholesterol diet, and statin therapy, smoking cessation. (3) GERD (gastroesophageal reflux disease) Status: Acute Qualifiers: Esophagitis presence: with esophagitis Qualified Code(s): K21.0 - Gastro- esophageal reflux disease with esophagitis Plan to address problem: PPI therapy, outpatient GI f/u as previously scheduled.
== END 2018-05-18 22:38 | disposition admitted as inpatient to this hospital (09) ==
LOC: ED 15:30
DX: I24.9 Acute ischemic heart disease, unspecified (principal); I10 Essential (primary) hypertension; I25.2 Old myocardial infarction; E11.9 Type 2 diabetes mellitus without complications; K21.9 Gastro-esophageal reflux disease without esophagitis; M19.90 Unspecified osteoarthritis, unspecified site; F17.200 Nicotine dependence, unspecified, uncomplicated; Z95.1 Presence of aortocoronary bypass graft; Z79.82 Long term (current) use of aspirin; Z88.0 Allergy status to penicillin
CPT/HCPCS: 36415; 71045; 80048; 83690; 83880; 84484; 85025; 85379; 85610; 85730; 93005; 93010; 96374; 96375; 99291; J2270; J2405

== ENCOUNTER 2018-11-23 21:13 | Emergency (ER) | payer OTHER ==
[2018-11-23 21:20] VITALS: BP 141/95
--- NOTE | 2018-11-23 21:28 | Emergency Department Report ---
Blank Doc - Documentation Documentation: 53 y/o male complains of tingling in both hand. 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 Hx/o hyperchole strolemia and is on medication. Denies any trauma.
--- NOTE | 2018-11-24 01:10 | Emergency Department Report ---
ED General Adult HPI - General Chief complaint: Extremity Injury, Upper Stated complaint: PAIN IN HANDS Time Seen by Provider: 11/23/18 23:23 Source: patient Mode of arrival: Ambulatory Limitations: No Limitations - History of Present Illness Initial comments: 53-year-old -English male with past medical history of CAD and hypertension presents to emergency department complaining of a 2 week history of numbness and tingling to the left and right hand. Sensation of pins and needles -: Gradual Radiation: non-radiation Severity scale (0 -10): 8 Quality: burning Consistency: intermittent Improves with: none Worsens with: none Associated Symptoms: denies: confusion, chest pain, diaphoresis, fever/chills, loss of appetite, malaise, rash, seizure, shortness of breath, syncope, weakness - Related Data Previous Rx's Medication Instructions Recorded Last Taken Type Metoprolol [Lopressor TAB] 50 mg PO BID #60 tablet 07/16/17 10/15/17 Rx Acetaminophen [Tylenol Arthritis] 650 mg PO Q6HR PRN #30 tablet.er 04/16/18 Unknown Rx Ibuprofen [Motrin] 600 mg PO Q8H PRN #30 tablet 04/16/18 Unknown Rx Sucralfate [Carafate] 1 gm PO Q6HR #120 tablet 04/26/18 Unknown Rx Aspirin [Aspirin TAB] 325 mg PO QDAY #30 tablet 05/18/18 Unknown Rx AtorvaSTATin [Lipitor] 80 mg PO QHS #30 tablet 05/18/18 Unknown Rx Clopidogrel [Plavix] 75 mg PO QDAY #30 tablet 05/18/18 Unknown Rx Famotidine [Pepcid] 20 mg PO BID #60 tablet 05/18/18 Unknown Rx ISOSORBIDE MONOnitrate [Imdur ER] 60 mg PO QDAY #30 tablet 05/18/18 Unknown Rx Allergies Allergy/AdvReac Type Severity Reaction Status Date / Time Penicillins Allergy Rash Verified 05/18/18 15:37 ED Review of Systems ROS: Stated complaint: PAIN IN HANDS Other details as noted in HPI Constitutional: denies: chills, fever Eyes: denies: eye pain, eye discharge, vision change ENT: denies: ear pain, throat pain Respiratory: denies: cough, shortness of breath, wheezing Cardiovascular: denies: chest pain, palpitations Endocrine: no symptoms reported Gastrointestinal: denies: abdominal pain, nausea, diarrhea Genitourinary: denies: urgency, dysuria Musculoskeletal: denies: back pain, joint swelling, arthralgia Skin: denies: rash, lesions Neurological: denies: headache, weakness, paresthesias Psychiatric: denies: anxiety, depression Hematological/Lymphatic: denies: easy bleeding, easy bruising ED Past Medical Hx - Past Medical History Previous Medical History?: Yes Hx Hypertension: Yes Hx Heart Attack/AMI: Yes Hx Diabetes: Yes (borderline) Hx GERD: Yes Hx Arthritis: Yes Hx HIV: No Additional medical history: Eczema - Surgical History Past Surgical History?: Yes Hx Coronary Stent: Yes (06/2017, stents 2017) - Social History Smoking Status: Current Every Day Smoker Substance Use Type: None - Medications Home Medications: Home Medications Medication Instructions Recorded Confirmed Last Taken Type Metoprolol [Lopressor TAB] 50 mg PO BID #60 tablet 07/16/17 10/16/17 10/15/17 Rx Acetaminophen [Tylenol Arthritis] 650 mg PO Q6HR PRN #30 tablet.er 04/16/18 Unknown Rx Ibuprofen [Motrin] 600 mg PO Q8H PRN #30 tablet 04/16/18 Unknown Rx Sucralfate [Carafate] 1 gm PO Q6HR #120 tablet 04/26/18 Unknown Rx Aspirin [Aspirin TAB] 325 mg PO QDAY #30 tablet 05/18/18 Unknown Rx AtorvaSTATin [Lipitor] 80 mg PO QHS #30 tablet 05/18/18 Unknown Rx Clopidogrel [Plavix] 75 mg PO QDAY #30 tablet 05/18/18 Unknown Rx Famotidine [Pepcid] 20 mg PO BID #60 tablet 05/18/18 Unknown Rx ISOSORBIDE MONOnitrate [Imdur ER] 60 mg PO QDAY #30 tablet 05/18/18 Unknown Rx ED Physical Exam - General Limitations: No Limitations General appearance: alert, in no apparent distress - Head Head exam: Present: atraumatic, normocephalic - Eye Eye exam: Present: normal appearance, PERRL, EOMI Pupils: Present: normal accommodation - ENT ENT exam: Present: normal exam, normal orophraynx, mucous membranes moist - Neck Neck exam: Present: normal inspection, full ROM - Respiratory Respiratory exam: Present: normal lung sounds bilaterally. Absent: respiratory distress, wheezes, rales, chest wall tenderness, accessory muscle use, decreased breath sounds - Cardiovascular Cardiovascular Exam: Present: regular rate, normal rhythm. Absent: systolic murmur, diastolic murmur, rubs, gallop - GI/Abdominal GI/Abdominal exam: Present: soft, normal bowel sounds - Rectal Rectal exam: Present: deferred - Extremities Exam Extremities exam: Present: normal inspection, other (range of motion with no limitations. Capillary refills are brisk. Pulses 2+. Negative Tinel sign. Negative Phalen's test. No pain to the carpal Bham. No pain to the medial or lateral epicondyles. Mild discomfort to the right shoulder with range of motion. Positive O'Andres's testing. ) - Back Exam Back exam: Present: normal inspection - Neurological Exam Neurological exam: Present: alert, oriented X3 - Psychiatric Psychiatric exam: Present: normal affect, normal mood - Skin Skin exam: Present: warm, dry, intact, normal color. Absent: rash ED Course Vital Signs 11/23/18 11/23/18 21:20 21:25 Temperature 98.0 F 98 F Pulse Rate 105 H 105 H Respiratory 18 18 Rate Blood Pressure 141/95 Blood Pressure 141/95 [Right] O2 Sat by Pulse 96 Oximetry ED Medical Decision Making - Medical Decision Making Case discussed with Dr. Lyn. Follow-up with neurology outpatient. There is no chest pain, shortness of breath, presyncope, calf pain, fever, chills, sweats Critical care attestation.: If time is entered above; I have spent that time in minutes in the direct care of this critically ill patient, excluding procedure time. ED Disposition Clinical Impression: Peripheral neuropathy Disposition: - TO HOME OR SELFCARE Is pt being admited?: No Does the pt Need Aspirin: No Condition: Stable Referrals: TUNG MENDEZ MD [Primary Care Provider] - 3-5 Days ALEJO PEGUERO MD [Staff Physician] - 3-5 Days
== END 2018-11-24 01:25 | disposition home or self-care (01) ==
LOC: ED 21:13
DX: E11.42 Type 2 diabetes mellitus with diabetic polyneuropathy (principal); I10 Essential (primary) hypertension; K21.9 Gastro-esophageal reflux disease without esophagitis; M19.90 Unspecified osteoarthritis, unspecified site; F17.200 Nicotine dependence, unspecified, uncomplicated; Z86.73 Personal history of transient ischemic attack (TIA), and cerebral infarction without residual deficits; Z95.5 Presence of coronary angioplasty implant and graft; Z79.899 Other long term (current) drug therapy; Z88.0 Allergy status to penicillin
CPT/HCPCS: 82962; 99283

== ENCOUNTER 2019-02-22 01:38 | Emergency (ER) | payer SELFPAY ==
--- NOTE | 2019-02-22 02:30 | XRay Report ---
LEFT KNEE 2 VIEWS INDICATION / CLINICAL INFORMATION: Left knee pain. COMPARISON: None available. FINDINGS: Small superior patellar spur. No other significant skeletal abnormality. Signer Name: Jacoby Medina MD FACBrian Signed: 02/22/2019 2:25 AM Workstation Name: [email or web address]
[2019-02-22] MEDS ORDERED: PERCOCET 5/325 PO STA (02:36)
[2019-02-22] MEDS ORDERED: DELTASONE PO STA (02:36)
--- NOTE | 2019-02-22 02:55 | Emergency Department Report ---
ED General Adult HPI - General Chief complaint: Extremity Injury, Lower Stated complaint: L KNEE PAIN Time Seen by Provider: 02/22/19 02:33 Source: patient Mode of arrival: Wheelchair Limitations: No Limitations - History of Present Illness -: Sudden (1), days(s) Location: lower extremity Radiation: non-radiation Quality: aching, sharp Consistency: constant Worsens with: immobilization, movement Associated Symptoms: denies: chest pain, cough, diaphoresis, fever/chills, loss of appetite, malaise, nausea/vomiting, rash, shortness of breath, syncope, weakness Treatments Prior to Arrival: none - Related Data Previous Rx's Medication Instructions Recorded Last Taken Type Metoprolol [Lopressor TAB] 50 mg PO BID #60 tablet 07/16/17 10/15/17 Rx Acetaminophen [Tylenol Arthritis] 650 mg PO Q6HR PRN #30 tablet.er 04/16/18 Unknown Rx Ibuprofen [Motrin] 600 mg PO Q8H PRN #30 tablet 04/16/18 Unknown Rx Sucralfate [Carafate] 1 gm PO Q6HR #120 tablet 04/26/18 Unknown Rx Aspirin 325 mg PO QDAY #30 tablet 05/18/18 Unknown Rx AtorvaSTATin [Lipitor] 80 mg PO QHS #30 tablet 05/18/18 Unknown Rx Clopidogrel [Plavix] 75 mg PO QDAY #30 tablet 05/18/18 Unknown Rx Famotidine [Pepcid] 20 mg PO BID #60 tablet 05/18/18 Unknown Rx ISOSORBIDE MONOnitrate [Imdur ER] 60 mg PO QDAY #30 tablet 05/18/18 Unknown Rx predniSONE [Deltasone] 50 mg PO QDAY #5 tab 02/22/19 Unknown Rx traMADol [Ultram] 50 mg PO Q6HR PRN #15 tablet 02/22/19 Unknown Rx Allergies Allergy/AdvReac Type Severity Reaction Status Date / Time Penicillins Allergy Rash Verified 05/18/18 15:37 ED Review of Systems ROS: Stated complaint: L KNEE PAIN Other details as noted in HPI Comment: All other systems reviewed and negative ED Past Medical Hx - Past Medical History Previous Medical History?: Yes Hx Hypertension: Yes Hx Heart Attack/AMI: Yes (Cardiac Stents) Hx Diabetes: Yes (borderline) Hx GERD: Yes Hx Arthritis: Yes Hx HIV: No Additional medical history: Eczema, High Cholesterol - Surgical History Past Surgical History?: Yes Hx Coronary Stent: Yes (06/2017, stents x2 2017) - Social History Smoking Status: Current Every Day Smoker Substance Use Type: None - Medications Home Medications: Home Medications Medication Instructions Recorded Confirmed Last Taken Type Metoprolol [Lopressor TAB] 50 mg PO BID #60 tablet 07/16/17 10/16/17 10/15/17 Rx Acetaminophen [Tylenol Arthritis] 650 mg PO Q6HR PRN #30 tablet.er 04/16/18 Unknown Rx Ibuprofen [Motrin] 600 mg PO Q8H PRN #30 tablet 04/16/18 Unknown Rx Sucralfate [Carafate] 1 gm PO Q6HR #120 tablet 04/26/18 Unknown Rx Aspirin 325 mg PO QDAY #30 tablet 05/18/18 Unknown Rx AtorvaSTATin [Lipitor] 80 mg PO QHS #30 tablet 05/18/18 Unknown Rx Clopidogrel [Plavix] 75 mg PO QDAY #30 tablet 05/18/18 Unknown Rx Famotidine [Pepcid] 20 mg PO BID #60 tablet 05/18/18 Unknown Rx ISOSORBIDE MONOnitrate [Imdur ER] 60 mg PO QDAY #30 tablet 05/18/18 Unknown Rx predniSONE [Deltasone] 50 mg PO QDAY #5 tab 02/22/19 Unknown Rx traMADol [Ultram] 50 mg PO Q6HR PRN #15 tablet 02/22/19 Unknown Rx ED Physical Exam - General Limitations: No Limitations General appearance: alert, in no apparent distress - Head Head exam: Present: atraumatic, normocephalic - Eye Eye exam: Present: normal appearance, PERRL, EOMI Pupils: Present: normal accommodation - ENT ENT exam: Present: mucous membranes moist - Neck Neck exam: Present: normal inspection, full ROM - Respiratory Respiratory exam: Present: normal lung sounds bilaterally. Absent: respiratory distress, wheezes, rales, rhonchi, accessory muscle use, decreased breath sounds - Cardiovascular Cardiovascular Exam: Present: regular rate, normal rhythm. Absent: systolic murmur, diastolic murmur, rubs, gallop - GI/Abdominal GI/Abdominal exam: Present: soft, normal bowel sounds - Rectal Rectal exam: Present: deferred - Extremities Exam Extremities exam: Present: normal inspection - Expanded Lower Extremity Exam Left Hip exam: Present: normal inspection, full ROM Upper Leg exam: Present: normal inspection, full ROM Knee exam: Present: tenderness, effusion, pain w/ pronation/supination, full knee extension. Absent: abrasion, laceration, ecchymosis, deformity Lower Leg exam: Present: normal inspection, full ROM Ankle exam: Present: normal inspection, full ROM Foot/Toe exam: Present: normal inspection, full ROM Neuro vascular tendon exam: Present: no vascular compromise - Back Exam Back exam: Present: normal inspection - Neurological Exam Neurological exam: Present: alert, oriented X3 - Psychiatric Psychiatric exam: Present: normal affect, normal mood - Skin Skin exam: Present: warm, dry, intact, normal color. Absent: rash ED Course Vital Signs 02/22/19 01:42 Temperature 98.3 F Pulse Rate 98 H Respiratory 20 Rate Blood Pressure 144/98 O2 Sat by Pulse 100 Oximetry ED Medical Decision Making - Medical Decision Making 4-year-old -[place] male with atraumatic knee pain, swelling and history of eczema, warmth to the knee is noted. No cellulitis. No no broken skin. No popliteal mass appreciated. Normal varus and valgus stress be secondary to arthritis of a likely secondary cause Critical care attestation.: If time is entered above; I have spent that time in minutes in the direct care of this critically ill patient, excluding procedure time. ED Disposition Clinical Impression: Left knee pain Disposition: DC-01 TO HOME OR SELFCARE Is pt being admited?: No Does the pt Need Aspirin: No Condition: Stable Instructions: Arthralgia (ED) Referrals: TUNG MENDEZ MD [Primary Care Provider] - 3-5 Days
[2019-02-22 04:06] VITALS: BP 140/96
== END 2019-02-22 03:55 | disposition home or self-care (01) ==
LOC: ED 01:38
DX: M25.562 Pain in left knee (principal); I10 Essential (primary) hypertension; I25.2 Old myocardial infarction; E11.9 Type 2 diabetes mellitus without complications; K21.9 Gastro-esophageal reflux disease without esophagitis; M19.90 Unspecified osteoarthritis, unspecified site; E78.00 Pure hypercholesterolemia, unspecified; F17.200 Nicotine dependence, unspecified, uncomplicated; Z95.5 Presence of coronary angioplasty implant and graft; Z79.899 Other long term (current) drug therapy; Z88.0 Allergy status to penicillin
CPT/HCPCS: 73560; 99283; J7512

== ENCOUNTER 2019-08-01 16:01 | Observation (INO) | payer OTHER ==
[2019-08-01] MEDS ORDERED: NITROGLYCERIN 0.4 MG TAB SUBL SL ONE (18:37)
[2019-08-01] MEDS ORDERED: ASPIRIN 325 MG TAB PO ONE (18:37)
[2019-08-01] MEDS ORDERED: KETOROLAC 30 MG/1 ML INJ IV ONE (18:38)
--- NOTE | 2019-08-01 19:04 | Emergency Department Report ---
ED Chest Pain HPI - General Chief Complaint: Chest Pain Stated Complaint: CHEST PAIN AND ABD PAIN Time Seen by Provider: 08/01/19 18:18 Source: patient Mode of arrival: Ambulatory Limitations: No Limitations - History of Present Illness Initial Comments: Patient is a 53-year-old [place] male with a past medical history of hypertension diabetes and coronary artery disease who is presenting with left- sided chest pain. Patient states pain present for approximately 2 days. States the sharp pain on the left chest. Went away briefly last night but then returns morning. Patient states is sharp in nature with no radiation. The patient states is worse with exertion and with deep breathing. He has some shortness of breath associated with the pain. Patient denies cough nausea vomiting or diaphoresis. Patient states he does have 2 stents but the pain which is present currently is different in nature than pain is had the past when the stents were placed. patient having a hard time describing the difference. Patient states that he had 2 stents placed in 2017. Severity scale (0 -10): 7 - Related Data Previous Rx's Medication Instructions Recorded Last Taken Type Metoprolol [Lopressor TAB] 50 mg PO BID #60 tablet 07/16/17 10/15/17 Rx Acetaminophen [Tylenol Arthritis] 650 mg PO Q6HR PRN #30 tablet.er 04/16/18 Unknown Rx Ibuprofen [Motrin] 600 mg PO Q8H PRN #30 tablet 04/16/18 Unknown Rx Sucralfate [Carafate] 1 gm PO Q6HR #120 tablet 04/26/18 Unknown Rx Aspirin 325 mg PO QDAY #30 tablet 05/18/18 Unknown Rx AtorvaSTATin [Lipitor] 80 mg PO QHS #30 tablet 05/18/18 Unknown Rx Clopidogrel [Plavix] 75 mg PO QDAY #30 tablet 05/18/18 Unknown Rx Famotidine [Pepcid] 20 mg PO BID #60 tablet 05/18/18 Unknown Rx ISOSORBIDE MONOnitrate [Imdur ER] 60 mg PO QDAY #30 tablet 05/18/18 Unknown Rx predniSONE [Deltasone] 50 mg PO QDAY #5 tab 02/22/19 Unknown Rx traMADoL [Ultram] 50 mg PO Q6HR PRN #15 tablet 02/22/19 Unknown Rx Allergies Allergy/AdvReac Type Severity Reaction Status Date / Time Penicillins Allergy Rash Verified 05/18/18 15:37 Heart Score - HEART Score History: Moderately suspicious EKG: Normal Age: 45-65 Risk factors: > 3 risk factors or hx of atherosclerotic disease Troponin: < normal limit HEART Score: 4 ED Review of Systems ROS: Stated complaint: CHEST PAIN AND ABD PAIN Other details as noted in HPI Comment: All other systems reviewed and negative ED Past Medical Hx - Past Medical History Previous Medical History?: Yes Hx Hypertension: Yes Hx Heart Attack/AMI: Yes (Cardiac Stents) Hx Diabetes: Yes (borderline) Hx GERD: Yes Hx Arthritis: Yes Hx HIV: No Additional medical history: Eczema, High Cholesterol - Surgical History Hx Coronary Stent: Yes (06/2017, stents x2 2018) - Social History Smoking Status: Current Every Day Smoker - Medications Home Medications: Home Medications Medication Instructions Recorded Confirmed Last Taken Type Metoprolol [Lopressor TAB] 50 mg PO BID #60 tablet 07/16/17 10/16/17 10/15/17 Rx Acetaminophen [Tylenol Arthritis] 650 mg PO Q6HR PRN #30 tablet.er 04/16/18 Unknown Rx Ibuprofen [Motrin] 600 mg PO Q8H PRN #30 tablet 04/16/18 Unknown Rx Sucralfate [Carafate] 1 gm PO Q6HR #120 tablet 04/26/18 Unknown Rx Aspirin 325 mg PO QDAY #30 tablet 05/18/18 Unknown Rx AtorvaSTATin [Lipitor] 80 mg PO QHS #30 tablet 05/18/18 Unknown Rx Clopidogrel [Plavix] 75 mg PO QDAY #30 tablet 05/18/18 Unknown Rx Famotidine [Pepcid] 20 mg PO BID #60 tablet 05/18/18 Unknown Rx ISOSORBIDE MONOnitrate [Imdur ER] 60 mg PO QDAY #30 tablet 05/18/18 Unknown Rx predniSONE [Deltasone] 50 mg PO QDAY #5 tab 02/22/19 Unknown Rx traMADoL [Ultram] 50 mg PO Q6HR PRN #15 tablet 02/22/19 Unknown Rx ED Physical Exam - General Limitations: No Limitations General appearance: alert, in no apparent distress - Head Head exam: Present: atraumatic, normocephalic - Eye Eye exam: Present: normal appearance, PERRL, EOMI - ENT ENT exam: Present: mucous membranes moist - Neck Neck exam: Present: normal inspection - Respiratory Respiratory exam: Present: normal lung sounds bilaterally. Absent: respiratory distress, wheezes, rales, rhonchi - Cardiovascular Cardiovascular Exam: Present: regular rate, normal rhythm, normal heart sounds. Absent: systolic murmur, diastolic murmur, rubs, gallop - GI/Abdominal GI/Abdominal exam: Present: soft, normal bowel sounds. Absent: distended, tenderness, guarding, rebound - Rectal Rectal exam: Present: deferred - Extremities Exam Extremities exam: Present: normal inspection - Back Exam Back exam: Present: normal inspection - Neurological Exam Neurological exam: Present: alert, oriented X3 - Psychiatric Psychiatric exam: Present: normal affect, normal mood - Skin Skin exam: Present: warm, dry, intact, normal color. Absent: rash ED Course Vital Signs 08/01/19 08/01/19 08/01/19 16:02 17:30 17:52 Temperature 98.2 F Pulse Rate 86 86 Respiratory 18 20 20 Rate Blood Pressure 138/103 152/105 Blood Pressure 152/105 [Left] O2 Sat by Pulse 96 96 Oximetry 08/01/19 08/01/19 08/01/19 17:53 18:00 18:30 Temperature Pulse Rate 81 81 Respiratory 20 19 20 Rate Blood Pressure 155/111 157/110 Blood Pressure [Left] O2 Sat by Pulse 96 96 99 Oximetry 08/01/19 08/01/19 08/01/19 19:05 19:15 19:30 Temperature Pulse Rate 90 77 Respiratory 16 12 Rate Blood Pressure 159/109 145/107 Blood Pressure [Left] O2 Sat by Pulse 98 95 Oximetry 08/01/19 19:45 Temperature Pulse Rate 77 Respiratory Rate Blood Pressure 145/107 Blood Pressure [Left] O2 Sat by Pulse Oximetry JULIAN score - Julian Score Age > 65: (0) No Aspirin use within the Past 7 Days: (0) No 3 or more CAD Risk Factors: (1) Yes 2 or more Angina events in past 24 hrs: (1) Yes Known CAD with more than 50% Stenosis: (0) No Elevated Cardiac Markers: (0) No ST Deviation Greater than 0.5mm: (0) No JULIAN Score: 2 ED Medical Decision Making - Lab Data Result diagrams: 08/01/19 19:13 08/01/19 19:13 Lab Results 08/01/19 08/01/19 08/01/19 Range/Units 19:13 19:13 19:13 WBC 8.9 (4.5-11.0) K/mm3 RBC 4.77 (3.65-5.03) M/mm3 Hgb 15.5 H (11.8-15.2) gm/dl Hct 45.4 (35.5-45.6) % MCV 95 H (84-94) fl MCH 33 H (28-32) pg MCHC 34 (32-34) % RDW 12.9 L (13.2-15.2) % Plt Count 222 (140-440) K/mm3 Lymph % (Auto) 42.0 H (13.4-35.0) % [place] % (Auto) 5.5 (0.0-7.3) % Eos % (Auto) 3.3 (0.0-4.3) % Baso % (Auto) 0.7 (0.0-1.8) % Lymph # 3.7 (1.2-5.4) K/mm3 [place] # 0.5 (0.0-0.8) K/mm3 Eos # 0.3 (0.0-0.4) K/mm3 Baso # 0.1 (0.0-0.1) K/mm3 Seg Neutrophils % 48.5 (40.0-70.0) % Seg Neutrophils # 4.3 (1.8-7.7) K/mm3 PT 13.0 (12.2-14.9) Sec. INR 0.97 (0.87-1.13) APTT 29.7 (24.2-36.6) Sec. D-Dimer 183.55 (0-234) ng/mlDDU Sodium 141 (137-145) mmol/L Potassium 4.8 (3.6-5.0) mmol/L Chloride 102.4 (98-107) mmol/L Carbon Dioxide 25 (22-30) mmol/L Anion Gap 18 mmol/L BUN 10 (9-20) mg/dL Creatinine 1.0 (0.8-1.5) mg/dL Estimated GFR > 60 ml/min BUN/Creatinine Ratio 10 % Glucose 83 (75-100) mg/dL Calcium 10.0 (8.4-10.2) mg/dL Troponin T < 0.010 (0.00-0.029) ng/mL - EKG Data -: EKG Interpreted by Ar EKG shows normal: sinus rhythm, axis, intervals, QRS complexes, ST-T waves Rate: normal - EKG Data Interpretation: normal EKG - Radiology Data Patient: ROJAS ROMO MR#: [id number] : 1965 Acct:[id number] Age/Sex: 53 / M ADM Date: 08/01/19 Loc: ED Attending Dr: Ordering Physician: LUIS FERNANDO SOTOMAYOR MD Date of Service: 08/01/19 Procedure(s): XR chest routine 2V Accession Number(s): [id number] cc: LUIS FERNANDO SOTOMAYOR MD Fluoro Time In Minutes: CHEST 2 VIEWS INDICATION: Chest Pain. COMPARISON: 05/18/2018. FINDINGS: Support devices: None. Heart: Within normal limits. Lungs/Pleura: No acute air space or interstitial disease. No significant pleural effusion. IMPRESSION: No acute findings. 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 Patient has normal vital signs and his first troponin was within normal limits. Because of the patient's significant cardiac history patient will be admitted to for serial enzymes and cardiology consult. Critical care attestation.: If time is entered above; I have spent that time in minutes in the direct care of this critically ill patient, excluding procedure time. ED Disposition Clinical Impression: Chest pain Qualifiers: Chest pain type: unspecified Qualified Code(s): R07.9 - Chest pain, unspecified Disposition: OP ADMIT IP TO THIS HOSP Is pt being admited?: Yes Does the pt Need Aspirin: No Condition: Stable Instructions: Chest Pain (ED) Referrals: PRIMARY CARE, [Primary Care Provider] - 3-5 Days Time of Disposition: 20:34
[2019-08-01 19:35] LABS: Basophils # (Auto) 0.1 K/mm3 (0.0-0.1); Basophils % (Auto) 0.7 % (0.0-1.8); Eosinophils # (Auto) 0.3 K/mm3 (0.0-0.4); Eosinophils % (Auto) 3.3 % (0.0-4.3); Hematocrit 45.4 % (35.5-45.6); Hemoglobin 15.5 gm/dl (11.8-15.2); Lymphocytes # (Auto) 3.7 K/mm3 (1.2-5.4); Mean Corpuscular HGB Conc 34 % (32-34); Mean Corpuscular Volume 95 fl (84-94); Monocytes # (Auto) 0.5 K/mm3 (0.0-0.8); Monocytes % (Auto) 5.5 % (0.0-7.3); Platelet Count 222 K/mm3 (140-440); Red Blood Count 4.77 M/mm3 (3.65-5.03); Red Cell Distribution Width 12.9 % (13.2-15.2)
--- NOTE | 2019-08-01 19:41 | XRay Report ---
CHEST 2 VIEWS INDICATION: Chest Pain. COMPARISON: 05/18/2018. FINDINGS: Support devices: None. Heart: Within normal limits. Lungs/Pleura: No acute air space or interstitial disease. No significant pleural effusion. IMPRESSION: No acute findings. Signer Name: Deepak Mcdermott MD Signed: 08/01/2019 7:37 PM Workstation Name: [id number]
[2019-08-01 19:45] LABS: INR 0.97 (0.87-1.13)
[2019-08-01 19:46] LABS: Partial Thromboplastin Time 29.7 Sec. (24.2-36.6)
[2019-08-01 19:57] LABS: BUN/Creatinine Ratio 10; Blood Urea Nitrogen 10 mg/dL (9-20); Hemolysis Index 114
[2019-08-01] MEDS ORDERED: MORPHINE 2 MG/1 ML INJ IV PRN (20:27)
[2019-08-01] MEDS ORDERED: ONDANSETRON 4 MG/2 ML INJ IV PRN (20:27)
[2019-08-01] MEDS ORDERED: NITROGLYCERIN 0.4 MG TAB SUBL SL PRN (20:27)
[2019-08-01] MEDS ORDERED: ALBUTEROL 2.5 MG/3 ML NEBU IH PRN (20:27)
[2019-08-01] MEDS ORDERED: ACETAMINOPHEN 325 MG TAB PO PRN (20:27)
[2019-08-01] MEDS ORDERED: hydrALAZINE 20 MG/1 ML INJ IV PRN (20:32)
[2019-08-01] MEDS ORDERED: DEXTROSE 50% IN WATER (25GM) 50 ML SYRINGE IV PRN (22:04)
--- NOTE | 2019-08-01 22:11 | History and Physical Report ---
<ADAM BOOGIE - Last Filed: 08/01/19 22:06> History of Present Illness Date of examination: 08/01/19 Date of admission: 08/01/19 20:27 Chief complaint: chest pain History of present illness: 53-year-old -[place] male who is an ongoing smoker with history of hypertension, diabetes, NSTEMI, CAD s/p stent x2, and GERD who presents to [facility] ED with complaints of left sided chest pain x2 days. Patient states that the pain is located on the left side of his chest with radiation to back. The pain is sharp in nature and intermittent. He rates the pain 8/10. He admits to mild shortness of breath at rest and exertion with pain. He denies nausea, emesis, or diaphoresis. Pain is aggravated with activity and relieved with rest. Patient admits to being noncompliant with meds. Denies any recent hospitalizations. Past History Past Medical History: acute [place] (NSTEMI), CAD, diabetes, GERD, hypertension, hyperlipidemia, other (Eczema, ) Past Surgical History: Other (cardiac cath, stent x2 (06/2017)) Social history: smoking (Every day smoker) Family history: no significant family history Medications and Allergies Allergies Allergy/AdvReac Type Severity Reaction Status Date / Time Penicillins Allergy Rash Verified 05/18/18 15:37 Home Medications Medication Instructions Recorded Confirmed Last Taken Type Aspirin [Aspirin BABY CHEW TAB] 81 mg PO QDAY 08/01/19 08/01/19 Unknown History Nitroglycerin [Nitrostat] 0.4 mg SL PRN PRN 08/01/19 08/01/19 Unknown History raNITIdine HCl [Zantac] 150 mg PO QDAY 08/01/19 08/01/19 Unknown History Active Meds: Active Medications Acetaminophen (Tylenol) 650 mg PO Q4H PRN PRN Reason: Pain MILD(1-3)/Fever >100.5/SHERIFF Albuterol (Proventil) 2.5 mg IH Q3HRT PRN PRN Reason: Shortness Of Breath Aspirin (Baby Aspirin) 81 mg PO QDAY [facility] Atorvastatin Calcium (Lipitor) 80 mg PO QHS [facility] Clopidogrel Bisulfate (Plavix) 75 mg PO QDAY [facility] Dextrose (D50w (25gm) Syringe) 50 ml IV Q30MIN PRN; Protocol PRN Reason: Hypoglycemia Docusate Sodium (Colace) 100 mg PO BID [facility] Heparin Sodium (Porcine) (Heparin) 5,000 unit SUB-Q Q12HR [facility] Hydralazine HCl (Apresoline) 10 mg IV Q4HR PRN PRN Reason: Blood Pressure Insulin Human Lispro (Humalog) 0 unit SUB-Q ACHS [facility]; Protocol Morphine Sulfate (Morphine) 2 mg IV Q4H PRN PRN Reason: Pain, Moderate (4-6) Nicotine (Habitrol) 14 mg TD QDAY [facility] Nitroglycerin (Nitrostat) 0.4 mg SL Q5M PRN PRN Reason: Chest Pain Ondansetron HCl (Zofran) 4 mg IV Q8H PRN PRN Reason: Nausea And Vomiting Pantoprazole Sodium (Protonix) 40 mg PO QDAY [facility] Sodium Chloride (Sodium Chloride Flush Syringe 10 Ml) 10 ml IV BID [facility] Sodium Chloride (Sodium Chloride Flush Syringe 10 Ml) 10 ml IV PRN PRN PRN Reason: LINE FLUSH Review of Systems All systems: negative Cardiovascular: chest pain (With radiation to the back), dyspnea on exertion Exam - Physical Exam Narrative exam: Physical exam General appearance: Present: No acute distress, alert and oriented 3, well- developed, well-nourished adult male - EENT Eyes: Present: PERRL, EOM intact ENT: hearing intact, normal dentition - Neck Neck: Present: supple, normal ROM - Respiratory Respiratory effort: Non-labored Respiratory: Clear throughout - Cardiovascular Heart rate: 90 (bpm) Rhythm: Sinus rhythm Heart Sounds: Present: S1 & S2. Absent: rub, click - Extremities Extremities: no ischemia, pulses intact, - Peripheral Assessment Peripheral Pulses: within normal limits - Abdominal General gastrointestinal: soft, non-tender, normal bowel sounds - Integumentary Integumentary: Present: warm, dry, eczema - Musculoskeletal Musculoskeletal: Able to move all extremities -Neurological Neurological: CN II-XII intact - Psychiatric Psychiatric: Appropriate for situation ,cooperative - Constitutional Vitals: Temp Pulse Resp BP Pulse Ox 98.2 F 87 16 116/82 96 08/01/19 16:02 08/01/19 21:30 08/01/19 21:30 08/01/19 21:30 08/01/19 21:30 Results - Labs CBC & Chem 7: 08/01/19 19:13 08/01/19 19:13 Labs: Laboratory Last Values WBC 8.9 K/mm3 (4.5-11.0) 08/01/19 19:13 RBC 4.77 M/mm3 (3.65-5.03) 08/01/19 19:13 Hgb 15.5 gm/dl (11.8-15.2) H 08/01/19 19:13 Hct 45.4 % (35.5-45.6) 08/01/19 19:13 MCV 95 fl (84-94) H 08/01/19 19:13 MCH 33 pg (28-32) H 08/01/19 19:13 MCHC 34 % (32-34) 08/01/19 19:13 RDW 12.9 % (13.2-15.2) L 08/01/19 19:13 Plt Count 222 K/mm3 (140-440) 08/01/19 19:13 Lymph % (Auto) 42.0 % (13.4-35.0) H 08/01/19 19:13 [place] % (Auto) 5.5 % (0.0-7.3) 08/01/19 19:13 Eos % (Auto) 3.3 % (0.0-4.3) 08/01/19 19:13 Baso % (Auto) 0.7 % (0.0-1.8) 08/01/19 19:13 Lymph # 3.7 K/mm3 (1.2-5.4) 08/01/19 19:13 [place] # 0.5 K/mm3 (0.0-0.8) 08/01/19 19:13 Eos # 0.3 K/mm3 (0.0-0.4) 08/01/19 19:13 Baso # 0.1 K/mm3 (0.0-0.1) 08/01/19 19:13 Seg Neutrophils % 48.5 % (40.0-70.0) 08/01/19 19:13 Seg Neutrophils # 4.3 K/mm3 (1.8-7.7) 08/01/19 19:13 PT 13.0 Sec. (12.2-14.9) 08/01/19 19:13 INR 0.97 (0.87-1.13) 08/01/19 19:13 APTT 29.7 Sec. (24.2-36.6) 08/01/19 19:13 D-Dimer 183.55 ng/mlDDU (0-234) 08/01/19 19:13 Sodium 141 mmol/L (137-145) 08/01/19 19:13 Potassium 4.8 mmol/L (3.6-5.0) 08/01/19 19:13 Chloride 102.4 mmol/L (98-107) 08/01/19 19:13 Carbon Dioxide 25 mmol/L (22-30) 08/01/19 19:13 Anion Gap 18 mmol/L 08/01/19 19:13 BUN 10 mg/dL (9-20) 08/01/19 19:13 Creatinine 1.0 mg/dL (0.8-1.5) 08/01/19 19:13 Estimated GFR > 60 ml/min 08/01/19 19:13 BUN/Creatinine Ratio 10 % 08/01/19 19:13 Glucose 83 mg/dL (75-100) 08/01/19 19:13 Calcium 10.0 mg/dL (8.4-10.2) 08/01/19 19:13 Troponin T < 0.010 ng/mL (0.00-0.029) 08/01/19 19:13 - Imaging and Cardiology Imaging and Cardiology: CXR: FINDINGS: Support devices: None. Heart: Within normal limits. Lungs/Pleura: No acute air space or interstitial disease. No significant pleural effusion. IMPRESSION: No acute findings. Assessment and Plan Assessment and plan: 53-year-old -[place] male who is an ongoing smoker with history of hypertension, diabetes, NSTEMI, CAD s/p stent x2, and GERD who presents to [facility] ED with complaints of left sided chest pain x2 days. Acute Chest Pain -Hx NSTEMI -HX CAD -HX stent x2 (06/2017) -Abnormal stress testing, which showed EF 49% (06/2017) -Pt reports cardiac cath (09/2018) which shows patent coronaries -Initiate chest pain protocol -Continuous telemetry monitoring -Continue supportive care -Pain mgmt -Troponin negative x 1 , will continue to trend -EKG unrevealing for acute ischemic abnormalities -Echo and Lexiscan pending -Cardiology consulted HTN -Hx noncompliance with meds -Monitor BP -Start po Norvasc daily -IV hydralazine when necessary DM -POC BG monitoring -SSI coverage prn -HgbA1C pending HLD -On Statin CAD -On ASA, Statin, and Plavix GERD -on PPI Tobacco abuse -Current every day smoker -Counseled for cessation for 10 minutes -Nicotine patch when necessary DVT PPX -on Hepairn Advance Directives: No VTE prophylaxis?: Mechanical Plan of care discussed with patient/family: Yes <YAMINI TAMAYO - Last Filed: 08/02/19 05:26> History of Present Illness Date of admission: 08/01/19 20:27 Medications and Allergies Active Meds: Active Medications Acetaminophen (Tylenol) 650 mg PO Q4H PRN PRN Reason: Pain MILD(1-3)/Fever >100.5/SHERIFF Albuterol (Proventil) 2.5 mg IH Q3HRT PRN PRN Reason: Shortness Of Breath Amlodipine Besylate (Amlodipine) 5 mg PO QDAY [facility] Aspirin (Baby Aspirin) 81 mg PO QDAY [facility] Atorvastatin Calcium (Lipitor) 80 mg PO QHS [facility] Last Admin: 08/01/19 22:44 Dose: 80 mg Documented by: Clopidogrel Bisulfate (Plavix) 75 mg PO QDAY [facility] Dextrose (D50w (25gm) Syringe) 50 ml IV Q30MIN PRN; Protocol PRN Reason: Hypoglycemia Docusate Sodium (Colace) 100 mg PO BID [facility] Last Admin: 08/01/19 22:44 Dose: 100 mg Documented by: Heparin Sodium (Porcine) (Heparin) 5,000 unit SUB-Q Q12HR [facility] Last Admin: 08/01/19 22:44 Dose: 5,000 unit Documented by: Hydralazine HCl (Apresoline) 10 mg IV Q4HR PRN PRN Reason: Blood Pressure Insulin Human Lispro (Humalog) 0 unit SUB-Q [facility]; Protocol Morphine Sulfate (Morphine) 2 mg IV Q4H PRN PRN Reason: Pain, Moderate (4-6) Nicotine (Habitrol) 14 mg TD QDAY [facility] Nitroglycerin (Nitrostat) 0.4 mg SL Q5M PRN PRN Reason: Chest Pain Ondansetron HCl (Zofran) 4 mg IV Q8H PRN PRN Reason: Nausea And Vomiting Pantoprazole Sodium (Protonix) 40 mg PO QDAY [facility] Sodium Chloride (Sodium Chloride Flush Syringe 10 Ml) 10 ml IV BID [facility] Last Admin: 08/01/19 22:45 Dose: 10 ml Documented by: Sodium Chloride (Sodium Chloride Flush Syringe 10 Ml) 10 ml IV PRN PRN PRN Reason: LINE FLUSH Exam - Constitutional Vitals: Temp Pulse Resp BP Pulse Ox 98.2 F 100 H 27 H 128/84 94 08/01/19 16:02 08/02/19 00:30 08/02/19 00:30 08/02/19 00:30 08/02/19 00:30 Results - Labs CBC & Chem 7: 08/01/19 19:13 08/01/19 19:13 Labs: Laboratory Last Values WBC 8.9 K/mm3 (4.5-11.0) 08/01/19 19:13 RBC 4.77 M/mm3 (3.65-5.03) 08/01/19 19:13 Hgb 15.5 gm/dl (11.8-15.2) H 08/01/19 19:13 Hct 45.4 % (35.5-45.6) 08/01/19 19:13 MCV 95 fl (84-94) H 08/01/19 19:13 MCH 33 pg (28-32) H 08/01/19 19:13 MCHC 34 % (32-34) 08/01/19 19:13 RDW 12.9 % (13.2-15.2) L 08/01/19 19:13 Plt Count 222 K/mm3 (140-440) 08/01/19 19:13 Lymph % (Auto) 42.0 % (13.4-35.0) H 08/01/19 19:13 [place] % (Auto) 5.5 % (0.0-7.3) 08/01/19 19:13 Eos % (Auto) 3.3 % (0.0-4.3) 08/01/19 19:13 Baso % (Auto) 0.7 % (0.0-1.8) 08/01/19 19:13 Lymph # 3.7 K/mm3 (1.2-5.4) 08/01/19 19:13 [place] # 0.5 K/mm3 (0.0-0.8) 08/01/19 19:13 Eos # 0.3 K/mm3 (0.0-0.4) 08/01/19 19:13 Baso # 0.1 K/mm3 (0.0-0.1) 08/01/19 19:13 Seg Neutrophils % 48.5 % (40.0-70.0) 08/01/19 19:13 Seg Neutrophils # 4.3 K/mm3 (1.8-7.7) 08/01/19 19:13 PT 13.0 Sec. (12.2-14.9) 08/01/19 19:13 INR 0.97 (0.87-1.13) 08/01/19 19:13 APTT 29.7 Sec. (24.2-36.6) 08/01/19 19:13 D-Dimer 183.55 ng/mlDDU (0-234) 08/01/19 19:13 Sodium 141 mmol/L (137-145) 08/01/19 19:13 Potassium 4.8 mmol/L (3.6-5.0) 08/01/19 19:13 Chloride 102.4 mmol/L (98-107) 08/01/19 19:13 Carbon Dioxide 25 mmol/L (22-30) 08/01/19 19:13 Anion Gap 18 mmol/L 08/01/19 19:13 BUN 10 mg/dL (9-20) 08/01/19 19:13 Creatinine 1.0 mg/dL (0.8-1.5) 08/01/19 19:13 Estimated GFR > 60 ml/min 08/01/19 19:13 BUN/Creatinine Ratio 10 % 08/01/19 19:13 Glucose 83 mg/dL (75-100) 08/01/19 19:13 Hemoglobin A1c 6.0 % (4-6) 08/01/19 19:13 Calcium 10.0 mg/dL (8.4-10.2) 08/01/19 19:13 Total Creatine Kinase 231 units/L (55-170) H 08/01/19 22:54 CK-MB (CK-2) 1.5 ng/mL (0.0-4.0) 08/01/19 22:54 CK-MB (CK-2) Rel Index 0.6 (0-4) 08/01/19 22:54 Troponin T < 0.010 ng/mL (0.00-0.029) 08/01/19 22:54 Assessment and Plan Assessment and plan: Patient seen and examined, discussed with nurse practitioner agree with plan as stated above
[2019-08-01] MEDS ORDERED: DOCUSATE SODIUM 100 MG CAP ONE (22:37)
[2019-08-01] MEDS ORDERED: HEPARIN 5,000 UNIT/1 ML VIAL ONE (22:37)
[2019-08-01] MEDS: HEPARIN 5,000 UNIT/1 ML VIAL SUB-Q SCH (22:44)
[2019-08-01] MEDS: DOCUSATE SODIUM 100 MG CAP PO SCH (22:44)
[2019-08-01 23:23] LABS: Creatine Kinase MB 1.5 ng/mL (0.0-4.0)
[2019-08-02 06:26] LABS: Basophils % (Auto) 0.6 % (0.0-1.8); Eosinophils # (Auto) 0.3 K/mm3 (0.0-0.4); Eosinophils % (Auto) 3.9 % (0.0-4.3); Hematocrit 42.5 % (35.5-45.6); Hemoglobin 14.5 gm/dl (11.8-15.2); Lymphocytes # (Auto) 3.3 K/mm3 (1.2-5.4); Lymphocytes % (Auto) 43.5 % (13.4-35.0); Mean Corpuscular HGB Conc 34 % (32-34); Mean Corpuscular Volume 97 fl (84-94); Monocytes # (Auto) 0.5 K/mm3 (0.0-0.8); Monocytes % (Auto) 6.3 % (0.0-7.3); Platelet Count 203 K/mm3 (140-440); Red Cell Distribution Width 12.8 % (13.2-15.2)
[2019-08-02 06:52] LABS: BUN/Creatinine Ratio 13; Blood Urea Nitrogen 16 mg/dL (9-20); Calcium 9.3 mg/dL (8.4-10.2); Hemolysis Index 10
[2019-08-02] MEDS: INSULIN LISPRO 100 UNIT/ML SUB-Q SCH ×4 (08:00→22:02)
[2019-08-02] MEDS ORDERED: amLODIPine 5 MG TAB PO SCH (10:00)
[2019-08-02] MEDS ORDERED: CLOPIDOGREL 75 MG TAB PO SCH (10:00)
[2019-08-02] MEDS: DOCUSATE SODIUM 100 MG CAP PO SCH ×2 (10:38→22:01)
[2019-08-02] MEDS: ASPIRIN 81 MG TAB CHEW PO SCH (10:38)
[2019-08-02] MEDS: HEPARIN 5,000 UNIT/1 ML VIAL SUB-Q SCH ×2 (10:39→22:01)
[2019-08-02] MEDS: NICOTINE 14 MG/24 HR PATCH TD SCH (10:39)
[2019-08-02] MEDS: PANTOPRAZOLE 40 MG TAB PO SCH (10:39)
[2019-08-02 12:19] LABS: Amphetamine Screen,Urine PRESUMPTIVE NEGATIVE; Benzodiazepines Screen,Urine PRESUMPTIVE NEGATIVE; Cannabinoid Screen,Urine PRESUMPTIVE NEGATIVE; Cocaine Screen,Urine PRESUMPTIVE NEGATIVE; Methadone Screen,Urine PRESUMPTIVE NEGATIVE; Opiate Screen,Urine PRESUMPTIVE NEGATIVE
--- NOTE | 2019-08-02 14:00 | Progress Note ---
Assessment and Plan Assessment and plan: Patient is a 53-year-old -[place] male who is an ongoing smoker with history of hypertension, diabetes, NSTEMI, CAD s/p stent x2, and GERD who presents to [facility] ED with complaints of left sided chest pain x2 days. Acute Chest Pain -Hx NSTEMI -HX CAD -HX stent x2 (06/2017) -Abnormal stress testing, which showed EF 49% (06/2017) -Pt reports cardiac cath (09/2018) which shows patent coronaries -Initiate chest pain protocol -Continuous telemetry monitoring -Continue supportive care -Pain mgmt -Troponin negative x 1 , will continue to trend -EKG unrevealing for acute ischemic abnormalities -Echo and Lexiscan pending -Cardiology consulted HTN -Hx noncompliance with meds -Monitor BP -Start po Norvasc daily -IV hydralazine when necessary DM -POC BG monitoring -SSI coverage prn -HgbA1C pending HLD -On Statin CAD -On ASA, Statin, and Plavix GERD -on PPI Tobacco abuse -Current every day smoker -Counseled for cessation for 10 minutes -Nicotine patch when necessary DVT PPX -on Heparin History Interval history: Patient was seen and examined. Follow-up on current diagnosis. Overnight uneventful as no events directly reported to me. Patient denies any chest pain, shortness breath, nausea/vomiting or severe headaches. Imaging, nursing note, art, labs and old chart reviewed. Discussed with patient. Hospitalist Physical - Physical exam Narrative exam: Gen: WDWN, NAD, Awake, Alert, Orientated HEENT: NCAT, EOMI, PERRL, OP Clear Neck: supple, no adenopathy, no thyromegaly, no JVD CVS/Heart: RRR, normal S1S2, pulses present bilaterally Chest/Lungs: CTA B, Symmetrical chest expansion, good air entry bilaterally GI/Abdomen: soft, NTND, good bowel sounds, no guarding or rebound /Bladder: no suprapubic tenderness, no CVA or paraspinal tenderness Extermity/Skin: no c/c/e, no obvious rash MSK: FROM x 4 Neuro: CN 2-12 grossly intact, no new focal deficits Psych: calm - Constitutional Vitals: Temp Pulse Resp BP Pulse Ox 98.2 F 66 18 140/105 93 08/01/19 16:02 08/02/19 10:38 08/02/19 11:05 08/02/19 10:38 08/02/19 01:01 Results - Labs CBC & Chem 7: 08/02/19 05:31 08/02/19 05:31 Labs: Laboratory Last Values WBC 7.7 K/mm3 (4.5-11.0) 08/02/19 05:31 RBC 4.40 M/mm3 (3.65-5.03) 08/02/19 05:31 Hgb 14.5 gm/dl (11.8-15.2) 08/02/19 05:31 Hct 42.5 % (35.5-45.6) 08/02/19 05:31 MCV 97 fl (84-94) H 08/02/19 05:31 MCH 33 pg (28-32) H 08/02/19 05:31 MCHC 34 % (32-34) 08/02/19 05:31 RDW 12.8 % (13.2-15.2) L 08/02/19 05:31 Plt Count 203 K/mm3 (140-440) 08/02/19 05:31 Lymph % (Auto) 43.5 % (13.4-35.0) H 08/02/19 05:31 [place] % (Auto) 6.3 % (0.0-7.3) 08/02/19 05:31 Eos % (Auto) 3.9 % (0.0-4.3) 08/02/19 05:31 Baso % (Auto) 0.6 % (0.0-1.8) 08/02/19 05:31 Lymph # 3.3 K/mm3 (1.2-5.4) 08/02/19 05:31 [place] # 0.5 K/mm3 (0.0-0.8) 08/02/19 05:31 Eos # 0.3 K/mm3 (0.0-0.4) 08/02/19 05:31 Baso # 0.0 K/mm3 (0.0-0.1) 08/02/19 05:31 Seg Neutrophils % 45.7 % (40.0-70.0) 08/02/19 05:31 Seg Neutrophils # 3.5 K/mm3 (1.8-7.7) 08/02/19 05:31 PT 13.0 Sec. (12.2-14.9) 08/01/19 19:13 INR 0.97 (0.87-1.13) 08/01/19 19:13 APTT 29.7 Sec. (24.2-36.6) 08/01/19 19:13 D-Dimer 183.55 ng/mlDDU (0-234) 08/01/19 19:13 Sodium 138 mmol/L (137-145) 08/02/19 05:31 Potassium 4.2 mmol/L (3.6-5.0) 08/02/19 05:31 Chloride 102.2 mmol/L (98-107) 08/02/19 05:31 Carbon Dioxide 22 mmol/L (22-30) 08/02/19 05:31 Anion Gap 18 mmol/L 08/02/19 05:31 BUN 16 mg/dL (9-20) 08/02/19 05:31 Creatinine 1.2 mg/dL (0.8-1.5) 08/02/19 05:31 Estimated GFR > 60 ml/min 08/02/19 05:31 BUN/Creatinine Ratio 13 % 08/02/19 05:31 Glucose 101 mg/dL (75-100) H 08/02/19 05:31 POC Glucose 98 (70-105) 08/02/19 12:23 Hemoglobin A1c 6.0 % (4-6) 08/01/19 19:13 Calcium 9.3 mg/dL (8.4-10.2) 08/02/19 05:31 Total Creatine Kinase 231 units/L (55-170) H 08/01/19 22:54 CK-MB (CK-2) 1.5 ng/mL (0.0-4.0) 08/01/19 22:54 CK-MB (CK-2) Rel Index 0.6 (0-4) 08/01/19 22:54 Troponin T < 0.010 ng/mL (0.00-0.029) 08/01/19 22:54 Urine Opiates Screen Presumptive negative 08/02/19 12:00 Urine Methadone Screen Presumptive negative 08/02/19 12:00 Ur Barbiturates Screen Presumptive negative 08/02/19 12:00 Ur Phencyclidine Scrn Presumptive negative 08/02/19 12:00 Ur Amphetamines Screen Presumptive negative 08/02/19 12:00 U Benzodiazepines Scrn Presumptive negative 08/02/19 12:00 Urine Cocaine Screen Presumptive negative 08/02/19 12:00 U Marijuana (THC) Screen Presumptive negative 08/02/19 12:00 Drugs of Abuse Note Disclamer 08/02/19 12:00 Active Medications - Current Medications Current Medications: Generic Name Dose Route Start Last Admin Trade Name Freq PRN Reason Stop Dose Admin Acetaminophen 650 mg 08/01/19 20:27 Tylenol PO Q4H PRN Pain MILD(1-3)/Fever >100.5/SHERIFF Albuterol 2.5 mg 08/01/19 20:27 Proventil IH Q3HRT PRN Shortness Of Breath Amlodipine Besylate 5 mg 08/02/19 10:00 08/02/19 10:38 Amlodipine PO 5 mg QDAY ALEX Administration Aspirin 81 mg 08/02/19 10:00 08/02/19 10:38 Baby Aspirin PO 81 mg QDAY ALEX Administration Atorvastatin Calcium 80 mg 08/01/19 22:00 08/01/19 22:44 Lipitor PO 80 mg QHS ALEX Administration Clopidogrel Bisulfate 75 mg 08/02/19 10:00 08/02/19 10:38 Plavix PO 75 mg QDAY ALEX Administration Dextrose 50 ml 08/01/19 22:04 D50w (25gm) Syringe IV Q30MIN PRN Hypoglycemia Protocol Docusate Sodium 100 mg 08/01/19 22:00 08/02/19 10:38 Colace PO 100 mg BID ALEX Administration Heparin Sodium (Porcine) 5,000 unit 08/01/19 22:00 08/02/19 10:39 Heparin SUB-Q 5,000 unit Q12HR ALEX Administration Hydralazine HCl 10 mg 08/01/19 20:32 Apresoline IV Q4HR PRN Blood Pressure Insulin Human Lispro 0 unit 08/02/19 07:30 08/02/19 12:00 Humalog SUB-Q Not Given ACHS ALEX Protocol Morphine Sulfate 2 mg 08/01/19 20:27 Morphine IV Q4H PRN Pain, Moderate (4-6) Nicotine 14 mg 08/02/19 10:00 08/02/19 10:39 Habitrol TD 14 mg QDAY ALEX Administration Nitroglycerin 0.4 mg 08/01/19 20:27 Nitrostat SL Q5M PRN Chest Pain Ondansetron HCl 4 mg 08/01/19 20:27 Zofran IV Q8H PRN Nausea And Vomiting Pantoprazole Sodium 40 mg 08/02/19 10:00 08/02/19 10:39 Protonix PO 40 mg QDAY ALEX Administration Sodium Chloride 10 ml 08/01/19 22:00 08/02/19 10:39 Sodium Chloride Flush Syringe 10 Ml IV 10 ml BID ALXE Administration Sodium Chloride 10 ml 08/01/19 20:27 Sodium Chloride Flush Syringe 10 Ml IV PRN PRN LINE FLUSH Nutrition/Malnutrition Assess - Dietary Evaluation Nutrition/Malnutrition Findings: Nutrition Notes Start: 08/02/19 12:18 Freq: Status: Active Protocol: Document 08/02/19 12:18 LM (Rec: 08/02/19 12:29 LM [id number]) Nutrition Notes Need for Assessment generated from: MD Order,Education Initial or Follow up Assessment Current Diagnosis Coronary Artery Disease, Diabetes,Hypertension, Hyperlipidemia Other Pertinent Diagnosis GERD, Tobacco use Labs/Tests BG 101 Pertinent Medications Reviewed Height 5 ft 7 in Weight 92.98 kg [place] Body Weight (kg) 67.27 BMI 32.1 Intake Prior to Admission Fair Weight change and time frame no wt changes Weight Status Overweight Subjective/Other Information MD consult for DM diet education. Pt did not eat breakfast because he does not like the food. Food preferences taken. Pt stated that he eats 1-2 times a day at home and that is normal for him. Pt also stated he eats on the go. Pt has not received DM diet education and stated he does not check his BG, take any medications, or have physician primary care sports medicine. Discussed and educated pt on DM diet and encouraged pt to seek further care with managing DM. Burn Absent Trauma Absent GI Symptoms None Current % PO Negligible Minimum of two criteria No #2 Nutrition Diagnosis Food and nutrition-related knowledge deficit Etiology No prior DM diet education As Evidenced by Signs and Symptoms Pt needing DM diet education #1 Nutrition Diagnosis Inadequate oral intake Etiology No proir DM diet education As Evidenced by Signs and Symptoms Pt needing DM diet education Is patient on ventilator? No Is Patient Ambulatory and/or Out of Bed Yes REE-([place]. or-ambulatory/OOB) [ 4392.659 NUTR.MSJOOB] Kcal/Kg value to use for calculation 20 Approximate Energy Requirements Using 1860 kcal/Kg Calculation Used for Recommendations Kcal/kg Additional Notes Protein: 64-80g (0.8-1g/kg using AdjBW 80kg) Fluid: 1 ml/kcal Nutrition Intervention Change Diet Order: Continue current Teaching Recipient Patient Learning Readiness Fair Teaching Methods Discussion,Handout Response to Teaching Verbalize understanding Education Handouts Provided Carbohydrate Counting for People with Diabetes Barriers to Learning Motivation RD phone number provided Yes Patient aware of follow up options Yes Goal #1 Meet at least 75% of energy and protein needs Anticipated Discharge Needs: Cardiac/Consistent CHO Follow-Up By: 08/04/19 Additional Comments F/U for intakes, further DM diet education needs
--- NOTE | 2019-08-02 14:48 | Consultation ---
History of Present Illness Consult date: 08/02/19 Requesting physician: ADAM BOOGIE Consult reason: chest pain History of present illness: Mr. Harrington is a 53 y/o male who presented to [facility] with left- sided, substernal chest pain that radiates to his back. It began on and has progressively worsened. He describes it as pressure that occurs mostly with movement and at its worst, rates it as 9/10. He has a medical history significant for CAD s/p PCI in September 2017, NSTEMI, unstable angina, diabetes, hypertension, GERD and tobacco abuse. He follows with Dr. Mckenzie in our office. He acknowledges being noncompliant with all of his medications, including aspirin and Plavix. Troponins negative x3 and EKG NAF. An echocardiogram in June 2017 found an EF of 50 to 55 percent with mild LVH. A cardiac catheterization in September 2017 found clean coronaries and a patent stent. Past History Past Medical History: acute [place] (NSTEMI), CAD, diabetes, GERD, hypertension, hyperlipidemia, other (Eczema, ) Past Surgical History: Other (cardiac cath, stent x2 (06/2017)) Social history: smoking (Every day smoker) Family history: no significant family history Medications and Allergies Allergies Allergy/AdvReac Type Severity Reaction Status Date / Time Penicillins Allergy Rash Verified 05/18/18 15:37 Home Medications Medication Instructions Recorded Confirmed Last Taken Type Aspirin [Aspirin BABY CHEW TAB] 81 mg PO QDAY 08/01/19 08/01/19 Unknown History Nitroglycerin [Nitrostat] 0.4 mg SL PRN PRN 08/01/19 08/01/19 Unknown History raNITIdine HCl [Zantac] 150 mg PO QDAY 08/01/19 08/01/19 Unknown History Active Meds: Active Medications Acetaminophen (Tylenol) 650 mg PO Q4H PRN PRN Reason: Pain MILD(1-3)/Fever >100.5/SHERIFF Albuterol (Proventil) 2.5 mg IH Q3HRT PRN PRN Reason: Shortness Of Breath Amlodipine Besylate (Amlodipine) 5 mg PO QDAY [facility] Last Admin: 08/02/19 10:38 Dose: 5 mg Documented by: Aspirin (Baby Aspirin) 81 mg PO QDAY [facility] Last Admin: 08/02/19 10:38 Dose: 81 mg Documented by: Atorvastatin Calcium (Lipitor) 80 mg PO QHS [facility] Last Admin: 08/01/19 22:44 Dose: 80 mg Documented by: Clopidogrel Bisulfate (Plavix) 75 mg PO QDAY [facility] Last Admin: 08/02/19 10:38 Dose: 75 mg Documented by: Dextrose (D50w (25gm) Syringe) 50 ml IV Q30MIN PRN; Protocol PRN Reason: Hypoglycemia Docusate Sodium (Colace) 100 mg PO BID [facility] Last Admin: 08/02/19 10:38 Dose: 100 mg Documented by: Heparin Sodium (Porcine) (Heparin) 5,000 unit SUB-Q Q12HR [facility] Last Admin: 08/02/19 10:39 Dose: 5,000 unit Documented by: Hydralazine HCl (Apresoline) 10 mg IV Q4HR PRN PRN Reason: Blood Pressure Insulin Human Lispro (Humalog) 0 unit SUB-Q ACHS [facility]; Protocol Last Admin: 08/02/19 12:00 Dose: Not Given Documented by: Morphine Sulfate (Morphine) 2 mg IV Q4H PRN PRN Reason: Pain, Moderate (4-6) Nicotine (Habitrol) 14 mg TD QDAY [facility] Last Admin: 08/02/19 10:39 Dose: 14 mg Documented by: Nitroglycerin (Nitrostat) 0.4 mg SL Q5M PRN PRN Reason: Chest Pain Ondansetron HCl (Zofran) 4 mg IV Q8H PRN PRN Reason: Nausea And Vomiting Pantoprazole Sodium (Protonix) 40 mg PO QDAY [facility] Last Admin: 08/02/19 10:39 Dose: 40 mg Documented by: Sodium Chloride (Sodium Chloride Flush Syringe 10 Ml) 10 ml IV BID [facility] Last Admin: 08/02/19 10:39 Dose: 10 ml Documented by: Sodium Chloride (Sodium Chloride Flush Syringe 10 Ml) 10 ml IV PRN PRN PRN Reason: LINE FLUSH Review of Systems Cardiovascular: chest pain Physical Examination Vital Signs Temp Resp BP Pulse Ox 98.2 F 18 138/103 96 08/01/19 16:02 08/01/19 16:02 08/01/19 16:02 08/01/19 16:02 General appearance: no acute distress HEENT: Positive: PERRL Neck: Positive: neck supple Cardiac: Positive: Reg Rate and Rhythm Lungs: Positive: Normal Exam Neuro: Positive: Grossly Intact Abdomen: Positive: Unremarkable Male genitourinary: Positive: deferred Skin: Positive: Clear Musculoskeletal: Normal Range of Motion Extremities: Present: normal Results 08/02/19 05:31 08/02/19 05:31 Cardiac Enzymes 08/01/19 Range/Units 22:54 CK-MB (CK-2) 1.5 (0.0-4.0) ng/mL Coagulation 08/01/19 Range/Units 19:13 PT 13.0 (12.2-14.9) Sec. INR 0.97 (0.87-1.13) APTT 29.7 (24.2-36.6) Sec. CBC 08/01/19 08/02/19 Range/Units 19:13 05:31 WBC 8.9 7.7 (4.5-11.0) K/mm3 RBC 4.77 4.40 (3.65-5.03) M/mm3 Hgb 15.5 H 14.5 (11.8-15.2) gm/dl Hct 45.4 42.5 (35.5-45.6) % Plt Count 222 203 (140-440) K/mm3 Lymph # 3.7 3.3 (1.2-5.4) K/mm3 [place] # 0.5 0.5 (0.0-0.8) K/mm3 Eos # 0.3 0.3 (0.0-0.4) K/mm3 Baso # 0.1 0.0 (0.0-0.1) K/mm3 Comprehensive Metabolic Panel 08/01/19 08/02/19 Range/Units 19:13 05:31 Sodium 141 138 (137-145) mmol/L Potassium 4.8 4.2 (3.6-5.0) mmol/L Chloride 102.4 102.2 (98-107) mmol/L Carbon Dioxide 25 22 (22-30) mmol/L BUN 10 16 (9-20) mg/dL Creatinine 1.0 1.2 (0.8-1.5) mg/dL Glucose 83 101 H (75-100) mg/dL Calcium 10.0 9.3 (8.4-10.2) mg/dL - Imaging and Cardiology Echo: report reviewed (06/2017: EF 50-55%, LVH) Cardiac cath: report reviewed (09/2017: clean coronaries, patent stent ) EKG interpretations - Telemetry EKG Rhythm: Sinus Rhythm Assessment and Plan Mr. Harrington is a 53 y/o male admitted with chest pain. Will obtain Lexiscan stress test in AM and initiate anti-ischemic regimen. Further recommendations pending hospital course. The patient has been seen in conjunction with Dr. Lawson, who agrees with the assessment and plan. - Patient Problems (1) Chest pain Current Visit: Yes Status: Acute Qualifiers: Chest pain type: unspecified Qualified Code(s): R07.9 - Chest pain, unspecified (2) CAD (coronary artery disease) Current Visit: No Status: Chronic Qualifiers: Coronary Disease-Associated Artery/Lesion type: [place] artery [place] vs. transplanted heart: [place] heart Associated angina: with stable angina Qualified Code(s): I25.118 - Atherosclerotic heart disease of [place] coronary artery with other forms of angina pectoris (3) GERD (gastroesophageal reflux disease) Current Visit: No Status: Chronic Qualifiers: Esophagitis presence: with esophagitis Qualified Code(s): K21.0 - Gastro- esophageal reflux disease with esophagitis (4) Unstable angina Current Visit: No Status: Chronic (5) Hypertension Current Visit: No Status: Chronic Qualifiers: Hypertension type: essential hypertension (6) Obesity (BMI 30.0-34.9) Current Visit: No Status: Chronic (7) Medically noncompliant Current Visit: Yes Status: Chronic
[2019-08-03] MEDS ORDERED: REGADENOSON 0.4 MG/5 ML INJ IV ONE ×2 (07:03→07:25)
[2019-08-03] MEDS: INSULIN LISPRO 100 UNIT/ML SUB-Q SCH ×3 (09:15→17:55)
--- NOTE | 2019-08-03 12:32 | Progress Note ---
Assessment and Plan S/p lexiscan MPI stress test today which was negative. Chest pain resolved. Currently stable cardiac status. Pt may discharge home from cardiology standpoint on present cardiac regimen. Recommend follow up in our office with Dr. Mckenzie within 1-2 weeks of discharge ([phone]). The patient has been seen in conjunction with Dr. Lawson who agrees with the assessment and plan of care. - Patient Problems (1) Chest pain Current Visit: Yes Status: Resolved Qualifiers: Chest pain type: unspecified Qualified Code(s): R07.9 - Chest pain, unspecified (2) CAD (coronary artery disease) Current Visit: Yes Status: Chronic Qualifiers: Coronary Disease-Associated Artery/Lesion type: [place] artery Associated angina: with stable angina (3) Stented coronary artery Current Visit: Yes Status: Chronic (4) Hypertension Current Visit: Yes Status: Chronic Qualifiers: Hypertension type: essential hypertension Qualified Code(s): I10 - Essential (primary) hypertension (5) Diabetes Current Visit: Yes Status: Chronic (6) Obesity Current Visit: Yes Status: Chronic (7) Medically noncompliant Current Visit: Yes Status: Chronic Subjective Date of service: 08/03/19 Principal diagnosis: cp Interval history: pt for stress test today, no current complaints. in SR on tele. Objective Last Vital Signs Temp 97.5 F L 08/03/19 11:11 Pulse 76 08/03/19 11:11 Resp 18 08/03/19 11:11 BP 106/69 08/03/19 11:11 Pulse Ox 97 08/03/19 11:11 - Physical Examination General: No Apparent Distress HEENT: Positive: PERRL Neck: Positive: neck supple Cardiac: Positive: Reg Rate and Rhythm, S1/S2 Lungs: Positive: Decreased Breath Sounds Neuro: Positive: Grossly Intact Abdomen: Positive: Unremarkable Skin: Positive: Clear Musculoskeletal: Normal Range of Motion Extremities: Present: normal - Imaging and Cardiology Echo: report reviewed (06/2017: EF 50-55%, LVH) Cardiac cath: report reviewed (09/2017: clean coronaries, patent stent )
--- NOTE | 2019-08-03 15:35 | Discharge Summary ---
Providers - Providers Date of Admission: 08/01/19 20:27 Date of discharge: 08/03/19 Attending physician: FLORA MILLER 08/01/19 Consult to Cardiac Rehabilitation [CONS] Routine Reason For Exam: Phase I 08/01/19 20:27 Consult to Physician [CONS] Routine Comment: Consulting Provider: BRIGHT HARO Physician Instructions: Reason For Exam: chest pain hx stent x2 08/01/19 22:04 Consult to Dietitian/Nutrition [CONS] Routine Physician Instructions: Reason For Exam: Reason for Consult: Diet education Primary care physician: WATER WELL DRILLER Hospitalization Condition: Stable Hospital course: Patient is a 53-year-old -[place] male who is an ongoing smoker with history of hypertension, diabetes, NSTEMI, CAD s/p stent x2, and GERD who presents to [facility] with complaints of left sided chest pain x2 days. Acute Chest Pain, costochrondritis most likely -Hx NSTEMI -HX CAD -HX stent x2 (06/2017) -Abnormal stress testing, which showed EF 49% (06/2017) -Pt reports cardiac cath (09/2018) which shows patent coronaries -Initiate chest pain protocol -Continuous telemetry monitoring -Continue supportive care -Pain mgmt -Troponin negative x 1 , will continue to trend -EKG unrevealing for acute ischemic abnormalities -Echo reviewed -Lexiscan negative -Cardiology consulted HTN -Hx noncompliance with meds -Monitor BP -Start po Norvasc daily -IV hydralazine when necessary DM -POC BG monitoring -SSI coverage prn -HgbA1C 6.0 HLD -On Statin CAD -On ASA, Statin, and Plavix GERD -on PPI Tobacco abuse -Current every day smoker -Counseled for cessation -Nicotine patch when necessary DVT PPX -on Heparin Disposition: DC-01 TO HOME OR SELFCARE Time spent for discharge: 35 minutes Core Measure Documentation - Palliative Care Palliative Care/ Comfort Measures: Not Applicable - Core Measures Any of the following diagnoses?: none - VTE Discharge Requirements Deep Vein Thrombosis/Pulmonary Embolism Present on Admission: No Has pt received <5 days of overlap therapy or INR<2.0: No Anticoagulant overlap therapy prescribed at discharge: No Contraindication No Overlap Therapy order at DC: Not Indicated Exam - Physical Exam Narrative exam: Gen: WDWN, NAD, Awake, Alert, Orientated HEENT: NCAT, EOMI, PERRL, OP Clear Neck: supple, no adenopathy, no thyromegaly, no JVD CVS/Heart: RRR, normal S1S2, pulses present bilaterally Chest/Lungs: CTA B, Symmetrical chest expansion, good air entry bilaterally GI/Abdomen: soft, NTND, good bowel sounds, no guarding or rebound /Bladder: no suprapubic tenderness, no CVA or paraspinal tenderness Extermity/Skin: no c/c/e, no obvious rash MSK: FROM x 4 Neuro: CN 2-12 grossly intact, no new focal deficits Psych: calm - Constitutional Vitals: Temp Pulse Resp BP Pulse Ox 97.5 F L 76 18 106/69 97 08/03/19 11:11 08/03/19 11:11 08/03/19 11:11 08/03/19 11:11 08/03/19 11:11 Plan Activity: other (no strenous activity unless cleared by PCP) Diet: low salt Special Instructions: record daily BP diary, smoking cessation Follow up with: PRIMARY CAREMD [Primary Care Provider] - 3-5 Days BRIGHT HARO MD [Staff Physician] - 7 Days Prescriptions: Nicotine [Habitrol] 14 mg TD QDAY #15 patch Nitroglycerin [Nitrostat] 0.4 mg SL Q5M PRN #15 tablet PRN Reason: Chest Pain
[2019-08-03 15:39] VITALS: BP 122/81
[2019-08-03] MEDS: DOCUSATE SODIUM 100 MG CAP PO SCH (17:55)
[2019-08-03] MEDS: NICOTINE 14 MG/24 HR PATCH TD SCH (17:55)
[2019-08-03] MEDS: ASPIRIN 81 MG TAB CHEW PO SCH (17:55)
[2019-08-03] MEDS: HEPARIN 5,000 UNIT/1 ML VIAL SUB-Q SCH (17:55)
[2019-08-03] MEDS: PANTOPRAZOLE 40 MG TAB PO SCH (17:55)
--- NOTE | 2019-08-03 20:22 | Treadmill Report ---
NUCLEAR CARDIAC IMAGING INDICATION FOR PROCEDURE: Chest pain. Informed consent was obtained. Vasodilator stress was achieved with the intravenous administration of 0.4 mg of Lexiscan per protocol. Rest and stress nuclear cardiac imaging was performed following the intravenous administration of technetium-99m Myoview per protocol. Gated SPECT imaging demonstrates a post-stress left ventricular ejection fraction of 56%. Myocardial perfusion imaging demonstrates no significant cavity change between stress and rest. No significant stress induced perfusion defects are seen. Nuclear cardiac imaging demonstrates grossly normal left ventricular systolic function with no significant evidence of myocardial ischemia or necrosis. JOB# [id number] DINORAH/NTS
[2019-08-03] MEDS ORDERED: METOPROLOL TARTRATE 25 MG TAB PO SCH (22:00)
== END 2019-08-03 17:59 | disposition home or self-care (01) ==
LOC: ED 16:01 → 4A 20:27
PROVIDERS: ADMIT Internal Medicine; ATTEND Internal Medicine
DX: R07.89 Other chest pain (principal); I25.110 Atherosclerotic heart disease of native coronary artery with unstable angina pectoris; I10 Essential (primary) hypertension; R94.30 Abnormal result of cardiovascular function study, unspecified; E11.9 Type 2 diabetes mellitus without complications; I25.2 Old myocardial infarction; K21.9 Gastro-esophageal reflux disease without esophagitis; E78.5 Hyperlipidemia, unspecified; M19.90 Unspecified osteoarthritis, unspecified site; E66.9 Obesity, unspecified; F17.200 Nicotine dependence, unspecified, uncomplicated; Z71.6 Tobacco abuse counseling; Z91.14 Patient's other noncompliance with medication regimen; Z95.1 Presence of aortocoronary bypass graft; Z79.899 Other long term (current) drug therapy; Z88.0 Allergy status to penicillin; Z88.6 Allergy status to analgesic agent; Z88.8 Allergy status to other drugs, medicaments and biological substances; Z68.32 Body mass index [BMI] 32.0-32.9, adult
CPT/HCPCS: 36415; 71046; 78452; 80048; 80307; 82550; 82553; 82962; 83036; 84484; 85025; 85379; 85610; 85730; 93005; 93010; 93017; 93306; 94640; 96372; 96374; 99284; 99406; A9270; A9502; G0378; J1644; J1885; J2785

== ENCOUNTER 2019-08-19 12:49 | Emergency (ER) | payer SELFPAY ==
--- NOTE | 2019-08-19 13:32 | Event Note ---
ED Screening Note Date of service: 08/19/19 (n) Time: 13:29 ED Screening Note: 53 y o male presents with lower left pelvic abd pain x 2 days pain with leg elevation, no groin pain or mass This initial assessment/diagnostic orders/clinical plan/treatment(s) is/are subject to change based on patients health status, clinical progression and re- assessment by fellow clinical providers in the ED. Further treatment and workup at subsequent clinical providers discretion. Patient/guardian urged not to elope from the ED as their condition may be serious if not clinically assessed and managed. Initial orders include: ua, US? acc eval
[2019-08-19 15:42] LABS: Basophils % (Auto) 0.2 % (0.0-1.8); Eosinophils # (Auto) 0.1 K/mm3 (0.0-0.4); Eosinophils % (Auto) 0.9 % (0.0-4.3); Hematocrit 43.1 % (35.5-45.6); Hemoglobin 14.9 gm/dl (11.8-15.2); Lymphocytes # (Auto) 1.9 K/mm3 (1.2-5.4); Lymphocytes % (Auto) 15.4 % (13.4-35.0); Mean Corpuscular HGB Conc 35 % (32-34); Mean Corpuscular Volume 95 fl (84-94); Monocytes # (Auto) 0.7 K/mm3 (0.0-0.8); Monocytes % (Auto) 6.1 % (0.0-7.3); Platelet Count 226 K/mm3 (140-440); Red Blood Count 4.54 M/mm3 (3.65-5.03); Red Cell Distribution Width 12.7 % (13.2-15.2)
[2019-08-19 16:05] LABS: Alanine Aminotransferase 19 units/L (7-56); Albumin 4.7 g/dL (3.9-5); BUN/Creatinine Ratio 9; Blood Urea Nitrogen 10 mg/dL (9-20); Calcium 9.4 mg/dL (8.4-10.2); Hemolysis Index 6
[2019-08-19 17:19] LABS: Bilirubin,Urine NEG (Negative); Blood,Urine LG (Negative); Color,Urine Yellow (Yellow); Mucus,Urine FEW /HPF; Protein,Urine <15 mg/dL mg/dL (Negative); Urobilinogen,Urine < 2.0 mg/dL (<2.0)
[2019-08-19 17:24] LABS: RBC,Urine > 182.0 /HPF (0.0-6.0)
[2019-08-19] MEDS ORDERED: SODIUM CHLORIDE 0.9% 1000 ML 1,000 ML IV ONE (18:54)
[2019-08-19] MEDS ORDERED: KETOROLAC 60 MG/2 ML INJ IVP ONE (18:54)
--- NOTE | 2019-08-19 18:55 | Emergency Department Report ---
ED Abdominal Pain HPI - General Chief Complaint: Abdominal Pain Stated Complaint: ABD PAIN Time Seen by Provider: 08/19/19 18:33 Source: patient, family Mode of arrival: Ambulatory Limitations: No Limitations - History of Present Illness Initial Comments: Discussed this 3-year-old patient here report that he has low abdominal pain and he is a history of kidney stones. Pains been ongoing 1 day. Pain to left lower quadrant to 10. Denies any back pain at present but he said he was having left kidney pain earlier. Denies any fever or chills. Denies any urinary burning frequency or urgency. Pain is achy and cramping to left lower quadrant. No medication taken prior to coming to the emergency room. Denies any blood in urine. Denies any nausea or vomiting MD Complaint: abdominal pain Onset/Timin -: days(s) Location: LLQ Radiation: none Migration to: no migration Severity: severe Severity scale (0 -10): 10 Quality: cramping, aching Consistency: intermittent Improves With: nothing Worsens With: nothing Context: other (history of kidney stones) Associated Symptoms: denies: nausea, vomiting, diarrhea, fever, chills, constipation, dysuria, hematemesis, hematochezia, melena, hematuria, anorexia, syncope Treatments Prior to Arrival: other (none) - Related Data Home Medications Medication Instructions Recorded Confirmed Last Taken Aspirin [Aspirin BABY CHEW TAB] 81 mg PO QDAY 08/01/19 08/01/19 Unknown Nitroglycerin [Nitrostat] 0.4 mg SL PRN PRN 08/01/19 08/01/19 Unknown raNITIdine HCl [Zantac] 150 mg PO QDAY 08/01/19 08/01/19 Unknown Previous Rx's Medication Instructions Recorded Last Taken Type Nicotine [Habitrol] 14 mg TD QDAY #15 patch 08/03/19 Unknown Rx Nitroglycerin [Nitrostat] 0.4 mg SL Q5M PRN #15 tablet 08/03/19 Unknown Rx Pantoprazole [Protonix TAB] 40 mg PO QDAY tablet 08/03/19 Unknown Rx Acetaminophen/Codeine [Tylenol 1 tab PO Q8H PRN #12 tab 08/19/19 Unknown Rx /Codeine # 3 tab] Allergies Allergy/AdvReac Type Severity Reaction Status Date / Time Penicillins Allergy Rash Verified 05/18/18 15:37 ED Review of Systems ROS: Stated complaint: ABD PAIN Other details as noted in HPI Constitutional: denies: chills, fever Respiratory: denies: cough, shortness of breath, wheezing Cardiovascular: denies: chest pain, palpitations, edema, syncope Gastrointestinal: abdominal pain. denies: nausea, vomiting, diarrhea, constipation, hematemesis, melena, hematochezia Genitourinary: denies: urgency, dysuria, frequency, hematuria, discharge, testicular pain, testicular mass Musculoskeletal: denies: back pain, joint swelling, arthralgia, myalgia Skin: denies: rash Neurological: denies: headache, weakness, numbness, paresthesias, abnormal gait ED Past Medical Hx - Past Medical History Previous Medical History?: Yes Hx Hypertension: Yes Hx Heart Attack/AMI: Yes (Cardiac Stents) Hx Diabetes: Yes (borderline) Hx GERD: Yes Hx Arthritis: Yes Hx HIV: No Additional medical history: Eczema, High Cholesterol - Surgical History Past Surgical History?: Yes Hx Coronary Stent: Yes (06/2017, stents x2 2017) - Family History Family history: hypertension - Social History Smoking Status: Current Every Day Smoker Substance Use Type: None - Medications Home Medications: Home Medications Medication Instructions Recorded Confirmed Last Taken Type Aspirin [Aspirin BABY CHEW TAB] 81 mg PO QDAY 08/01/19 08/01/19 Unknown History Nitroglycerin [Nitrostat] 0.4 mg SL PRN PRN 08/01/19 08/01/19 Unknown History raNITIdine HCl [Zantac] 150 mg PO QDAY 08/01/19 08/01/19 Unknown History Nicotine [Habitrol] 14 mg TD QDAY #15 patch 08/03/19 Unknown Rx Nitroglycerin [Nitrostat] 0.4 mg SL Q5M PRN #15 tablet 08/03/19 Unknown Rx Pantoprazole [Protonix TAB] 40 mg PO QDAY tablet 08/03/19 Unknown Rx Acetaminophen/Codeine [Tylenol 1 tab PO Q8H PRN #12 tab 08/19/19 Unknown Rx /Codeine # 3 tab] ED Physical Exam - General Limitations: No Limitations General appearance: alert, in no apparent distress - Head Head exam: Present: atraumatic, normocephalic - Eye Eye exam: Present: normal appearance, PERRL, EOMI Pupils: Present: normal accommodation - ENT ENT exam: Present: normal exam - Neck Neck exam: Present: normal inspection, lymphadenopathy. Absent: tenderness, full ROM - Respiratory Respiratory exam: Present: normal lung sounds bilaterally. Absent: respiratory distress, chest wall tenderness - Cardiovascular Cardiovascular Exam: Present: regular rate, normal rhythm, normal heart sounds - GI/Abdominal GI/Abdominal exam: Present: soft, tenderness (tenderness to left lower quadrant. No guarding or rebound tenderness), normal bowel sounds. Absent: distended, guarding, rebound, rigid, organomegaly, mass, bruit, pulsatile mass, hernia - Extremities Exam Extremities exam: Present: normal inspection, full ROM, normal capillary refill, other. Absent: tenderness, pedal edema, joint swelling - Back Exam Back exam: Present: normal inspection, full ROM, other (Ambulates without any difficulties). Absent: tenderness, CVA tenderness (R), CVA tenderness (L), muscle spasm, paraspinal tenderness, vertebral tenderness, rash noted - Neurological Exam Neurological exam: Present: alert, oriented X3, normal gait - Psychiatric Psychiatric exam: Present: normal affect, normal mood - Skin Skin exam: Present: warm, dry, intact, normal color. Absent: rash ED Course Vital Signs 08/19/19 12:59 Temperature 98.3 F Pulse Rate 86 Respiratory 18 Rate Blood Pressure 129/91 O2 Sat by Pulse 95 Oximetry Vital Signs 08/19/19 08/19/19 08/19/19 12:59 22:15 22:18 Temperature 98.3 F 98.1 F Pulse Rate 86 78 Respiratory 18 18 18 Rate Blood Pressure 129/91 138/90 O2 Sat by Pulse 95 98 Oximetry - Reevaluation(s) Reevaluation #1: 08/19/19 21:21 Patient received 1 L of normal saline and 30 mg of Toradol IV without relief in pain. Patient stable in no acute distress. Reevaluation #2: 08/19/19 22:22 The skin of the abdomen and pelvis without left UVJ 2 mm stone. ED Medical Decision Making - Lab Data Result diagrams: 08/19/19 15:03 08/19/19 15:03 Lab Results 08/19/19 08/19/19 08/19/19 Range/Units 15:03 15:03 16:16 WBC 12.3 H (4.5-11.0) K/mm3 RBC 4.54 (3.65-5.03) M/mm3 Hgb 14.9 (11.8-15.2) gm/dl Hct 43.1 (35.5-45.6) % MCV 95 H (84-94) fl MCH 33 H (28-32) pg MCHC 35 H (32-34) % RDW 12.7 L (13.2-15.2) % Plt Count 226 (140-440) K/mm3 Lymph % (Auto) 15.4 (13.4-35.0) % [place] % (Auto) 6.1 (0.0-7.3) % Eos % (Auto) 0.9 (0.0-4.3) % Baso % (Auto) 0.2 (0.0-1.8) % Lymph # 1.9 (1.2-5.4) K/mm3 [place] # 0.7 (0.0-0.8) K/mm3 Eos # 0.1 (0.0-0.4) K/mm3 Baso # 0.0 (0.0-0.1) K/mm3 Seg Neutrophils % 77.4 H (40.0-70.0) % Seg Neutrophils # 9.5 H (1.8-7.7) K/mm3 Sodium 143 (137-145) mmol/L Potassium 4.5 (3.6-5.0) mmol/L Chloride 104.8 (98-107) mmol/L Carbon Dioxide 26 (22-30) mmol/L Anion Gap 17 mmol/L BUN 10 (9-20) mg/dL Creatinine 1.1 (0.8-1.5) mg/dL Estimated GFR > 60 ml/min BUN/Creatinine Ratio 9 % Glucose 106 H (75-100) mg/dL Calcium 9.4 (8.4-10.2) mg/dL Total Bilirubin 0.40 (0.1-1.2) mg/dL AST 20 (5-40) units/L ALT 19 (7-56) units/L Alkaline Phosphatase 102 (35-129) units/L Total Protein 7.4 (6.3-8.2) g/dL Albumin 4.7 (3.9-5) g/dL Albumin/Globulin Ratio 1.7 % Lipase 19 (13-60) units/L Urine Color Yellow (Yellow) Urine Turbidity Slightly-cloudy (Clear) Urine pH 5.0 (5.0-7.0) Ur Specific [place] 1.012 (1.003-1.030) Urine Protein <15 mg/dl (Negative) mg/dL Urine Glucose (UA) Neg (Negative) mg/dL Urine Ketones Neg (Negative) mg/dL Urine Blood Lg (Negative) Urine Nitrite Neg (Negative) Urine Bilirubin Neg (Negative) Urine Urobilinogen < 2.0 (<2.0) mg/dL Ur Leukocyte Esterase Neg (Negative) Urine WBC (Auto) 2.0 (0.0-6.0) /HPF Urine RBC (Auto) > 182.0 (0.0-6.0) /HPF U Epithel Cells (Auto) < 1.0 (0-13.0) /HPF Urine Mucus Few /HPF - Radiology Data Radiology results: report reviewed CT scan of the abdomen and pelvis without contrast dictated by radiologist and report reviewed by myself. Findings [facility] [address] [place] [address] Cat Scan Report Signed Patient: ROJAS ROMO MR#: [id number] : 1965 Acct:[id number] Age/Sex: 53 / M ADM Date: 08/19/19 Loc: ED Attending Dr: Ordering Physician: JAMA GAMA Date of Service: 08/19/19 Procedure(s): CT abdomen pelvis wo con Accession Number(s): [id number] cc: JAMA GAMA CT scan of the abdomen and pelvis without contrast INDICATION: Pelvic pain, history of kidney stones. TECHNIQUE: All CT scans at this location are performed using the following dose modulation technique: Automated exposure control. Helical slices were obtained through the abdomen and pelvis. No contrast is administered. COMPARISON: CT scan dated 04/25/2018 FINDINGS: Abdomen: The lung bases are clear. Liver, spleen, pancreas, adrenal glands, and small bowel show no acute abnormality. The appendix is unremarkable. There is minimal nephrolithiasis on the left. There is mild perinephric edema Pelvis: There is a 2 mm stone at the left ureterovesical junction. There is no bowel obstruction. There is no inflammatory change. No mass lesions are seen. On review of bone windows, no acute osseous abnormalities are seen. IMPRESSION: 1. There is a 2 mm stone at the left ureterovesical junction with mild left perinephric edema. There is minimal nephrolithiasis on the left. Signer Name: Win Sol MD Signed: 08/19/2019 7:51 PM Workstation Name: [id number] Transcribed By: Dictated By: Win Sol MD Electronically Authenticated By: Win Sol MD Signed Date/Time: 08/19/191950 DD/ 46 TD/TT: - Medical Decision Making This is a 53-year-old male [place] of left lower quadrant abdominal pain. Patient found to have left UVJ stone CT scan. CT scan of the abdomen pelvis with contrast dictated by radiologist and report reviewed by myself. IMPRESSION: 1. There is a 2 mm stone at the left ureterovesical junction with mild left perinephric edema. There is minimal nephrolithiasis on the left. She given pain medication 1 L for IV fluid in emergency room and voiced relief of pain. Patient stable. Vital signs stable afebrile I discussed the patient is lab results, CT scan was also diagnosed any voices understanding. Patient to follow-up with urology in 2 days. Surgical home in stable condition with prescription for Tylenol 3 - Differential Diagnosis colitis,appendicitis,Pyelonephritis,renalstone uti,enteritis Critical care attestation.: If time is entered above; I have spent that time in minutes in the direct care of this critically ill patient, excluding procedure time. ED Disposition Clinical Impression: Calculus of ureterovesical junction (UVJ), Left lower quadrant abdominal pain Disposition: TO HOME OR SELFCARE Is pt being admited?: No Does the pt Need Aspirin: No Condition: Stable Instructions: Kidney Stones (ED), Renal Colic (ED), Abdominal Pain (ED) Additional Instructions: Please follow-up with urologist as instructed If your symptoms worsens return to emergency room Take medication as prescribed please do not drive or operate heavy machinery while taking Tylenol No. 3 as it causes drowsiness Prescriptions: Acetaminophen/Codeine [Tylenol /Codeine # 3 tab] 1 tab PO Q8H PRN #12 tab PRN Reason: Pain Referrals: PRIMARY CARE, [Primary Care Provider] - 2-3 Days Forms: Accompanied Note, Work/School Release Form(ED)
--- NOTE | 2019-08-19 19:55 | Cat Scan Report ---
CT scan of the abdomen and pelvis without contrast INDICATION: Pelvic pain, history of kidney stones. TECHNIQUE: All CT scans at this location are performed using the following dose modulation technique: Automated exposure control. Helical slices were obtained through the abdomen and pelvis. No contrast is adminis tered. COMPARISON: CT scan dated 04/25/2018 FINDINGS: Abdomen: The lung bases are clear. Liver, spleen, pancreas, adrenal glands, and small bowel show no a cute abnormality. The appendix is unremarkable. There is minimal nephrolithiasis on the left. There is mild perinephric edema Pelvis: There is a 2 mm stone at the left ureterovesical junction. There is no bowel obstruction. The re is no inflammatory change. No mass lesions are seen. On review of bone windows, no acute osseous abnormalities are seen. IMPRESSION: 1. There is a 2 mm stone at the left ureterovesical junction with mild left perinephric edema. There is minimal nephrolithiasis on the left. Signer Name: Win Sol MD Signed: 08/19/2019 7:51 PM Workstation Name: [id number]
[2019-08-19 22:18] VITALS: BP 138/90
== END 2019-08-19 22:50 | disposition home or self-care (01) ==
LOC: ED 12:49
DX: N20.1 Calculus of ureter (principal); I10 Essential (primary) hypertension; E11.9 Type 2 diabetes mellitus without complications; K21.9 Gastro-esophageal reflux disease without esophagitis; M19.90 Unspecified osteoarthritis, unspecified site; F17.200 Nicotine dependence, unspecified, uncomplicated; E78.00 Pure hypercholesterolemia, unspecified; Z95.5 Presence of coronary angioplasty implant and graft; Z79.899 Other long term (current) drug therapy; Z88.0 Allergy status to penicillin
CPT/HCPCS: 36415; 74176; 80053; 81001; 83690; 85025; 96374; 99284; J1885; J7030

== ENCOUNTER 2020-10-06 02:10 | Emergency (ER) | payer SELFPAY ==
[2020-10-06 02:29] VITALS: BP 167/101
--- NOTE | 2020-10-06 02:35 | Emergency Department Report ---
ED General Adult HPI - General Chief complaint: Headache Stated complaint: HEADACHE Source: patient Mode of arrival: Ambulatory Limitations: No Limitations - History of Present Illness Initial comments: Patient is a 55-year-old -Bangl[place] male with a history of heavy tobacco abuse, CAD s/p [place] and stents placements, [id number]-kxufgfuap diabetes, hypertension, chronic osteoarthritis and GERD who presents to the ED with complaint of acute onset persistent right mandibular pain that radiates to the right maxillary and right ear and temporal area for the last 1 week, worse in the last 2 days. Patient states that he has not been able to sleep or eat anything because of worsening pain in his jaw. Patient denies dizziness, traumatic injury, chest pain, shortness of breath, diaphoresis, numbness and tingling or weakness of upper extremities bilaterally, fever, chills, sore throat, nasal and sinus congestion, or neck pain. MD Complaint: RIGHT MANDIBULAR PAIN; TOOTHACHE -: week(s) (1) Location: mouth Radiation: non-radiation Severity scale (0 -10): 8 Quality: aching, sharp Consistency: constant Improves with: none Worsens with: none Associated Symptoms: denies other symptoms, headaches. denies: confusion, chest pain, diaphoresis, fever/chills, loss of appetite, malaise, nausea/vomiting, rash, seizure, shortness of breath, syncope, weakness, other Treatments Prior to Arrival: none - Related Data Home Medications Medication Instructions Recorded Confirmed Last Taken Aspirin [Aspirin BABY CHEW TAB] 81 mg PO QDAY 08/01/19 08/01/19 Unknown Nitroglycerin [Nitrostat] 0.4 mg SL PRN PRN 08/01/19 08/01/19 Unknown raNITIdine HCl [Zantac] 150 mg PO QDAY 08/01/19 08/01/19 Unknown Previous Rx's Medication Instructions Recorded Last Taken Type Nicotine [Habitrol] 14 mg TD QDAY #15 patch 08/03/19 Unknown Rx Nitroglycerin [Nitrostat] 0.4 mg SL Q5M PRN #15 tablet 08/03/19 Unknown Rx Pantoprazole [Protonix TAB] 40 mg PO QDAY tablet 08/03/19 Unknown Rx Acetaminophen/Codeine [Tylenol 1 tab PO Q8H PRN #12 tab 08/19/19 Unknown Rx /Codeine # 3 tab] tiZANidine [Zanaflex 4mg TAB] 4 mg PO Q8H PRN #21 tablet 01/09/20 Unknown Rx Clindamycin [Clindamycin CAP] 300 mg PO Q8HR #60 capsule 10/06/20 Unknown Rx Ibuprofen [Motrin 800 MG tab] 800 mg PO Q8HR PRN #30 tablet 10/06/20 Unknown Rx traMADoL [Ultram 50 MG tab] 50 mg PO Q6HR PRN #12 tablet 10/06/20 Unknown Rx Allergies Allergy/AdvReac Type Severity Reaction Status Date / Time Penicillins Allergy Rash Verified 05/18/18 15:37 ED Review of Systems ROS: Stated complaint: HEADACHE Other details as noted in HPI Constitutional: denies: chills, fever Eyes: denies: eye pain, eye discharge, vision change ENT: dental pain, other (right mandibular pain with swollen gums). denies: ear pain, throat pain Respiratory: denies: cough, shortness of breath, wheezing Cardiovascular: denies: chest pain, palpitations Endocrine: no symptoms reported Gastrointestinal: denies: abdominal pain, nausea, diarrhea Genitourinary: denies: urgency, dysuria Musculoskeletal: denies: back pain, joint swelling, arthralgia Skin: denies: rash, lesions Neurological: headache. denies: weakness, paresthesias Psychiatric: denies: anxiety, depression Hematological/Lymphatic: denies: easy bleeding, easy bruising ED Past Medical Hx - Past Medical History Hx Hypertension: Yes Hx Heart Attack/AMI: Yes (Cardiac Stents) Hx Diabetes: Yes (borderline) Hx GERD: Yes Hx Arthritis: Yes Hx HIV: No Additional medical history: Eczema, High Cholesterol - Surgical History Hx Coronary Stent: Yes (06/2017, stents x2 2018) - Social History Smoking Status: Current Every Day Smoker - Medications Home Medications: Home Medications Medication Instructions Recorded Confirmed Last Taken Type Aspirin [Aspirin BABY CHEW TAB] 81 mg PO QDAY 08/01/19 08/01/19 Unknown History Nitroglycerin [Nitrostat] 0.4 mg SL PRN PRN 08/01/19 08/01/19 Unknown History raNITIdine HCl [Zantac] 150 mg PO QDAY 08/01/19 08/01/19 Unknown History Nicotine [Habitrol] 14 mg TD QDAY #15 patch 08/03/19 Unknown Rx Nitroglycerin [Nitrostat] 0.4 mg SL Q5M PRN #15 tablet 08/03/19 Unknown Rx Pantoprazole [Protonix TAB] 40 mg PO QDAY tablet 08/03/19 Unknown Rx Acetaminophen/Codeine [Tylenol 1 tab PO Q8H PRN #12 tab 08/19/19 Unknown Rx /Codeine # 3 tab] tiZANidine [Zanaflex 4mg TAB] 4 mg PO Q8H PRN #21 tablet 01/09/20 Unknown Rx Clindamycin [Clindamycin CAP] 300 mg PO Q8HR #60 capsule 10/06/20 Unknown Rx Ibuprofen [Motrin 800 MG tab] 800 mg PO Q8HR PRN #30 tablet 10/06/20 Unknown Rx traMADoL [Ultram 50 MG tab] 50 mg PO Q6HR PRN #12 tablet 10/06/20 Unknown Rx ED Physical Exam - General Limitations: No Limitations General appearance: alert, in no apparent distress - Head Head exam: Present: atraumatic, normocephalic, normal inspection - Eye Eye exam: Present: normal appearance, PERRL Pupils: Present: normal accommodation - ENT ENT exam: Present: normal orophraynx, mucous membranes moist, TM's normal bilaterally, normal external ear exam, other (Swollen, severely tender right mandibular gingiva; severely tender right mandibular premolar molar teeth) - Neck Neck exam: Present: normal inspection, full ROM - Respiratory Respiratory exam: Present: normal lung sounds bilaterally. Absent: respiratory distress, wheezes, rales, rhonchi, chest wall tenderness, accessory muscle use, decreased breath sounds, prolonged expiratory - Cardiovascular Cardiovascular Exam: Present: regular rate, normal rhythm, normal heart sounds. Absent: systolic murmur, diastolic murmur, rubs, gallop - GI/Abdominal GI/Abdominal exam: Present: soft, normal bowel sounds. Absent: tenderness, guarding, rebound, hyperactive bowel sounds, hypoactive bowel sounds - Extremities Exam Extremities exam: Present: normal inspection, full ROM, normal capillary refill - Back Exam Back exam: Present: normal inspection, full ROM. Absent: tenderness, CVA tenderness (R), CVA tenderness (L), muscle spasm, paraspinal tenderness, vertebral tenderness - Neurological Exam Neurological exam: Present: alert, oriented X3, CN II-XII intact, normal gait, reflexes normal - Psychiatric Psychiatric exam: Present: normal affect, normal mood - Skin Skin exam: Present: warm, dry, intact, normal color. Absent: rash ED Course Vital Signs 10/06/20 02:27 Temperature 97.7 F Pulse Rate 88 Respiratory 18 Rate Blood Pressure 167/101 O2 Sat by Pulse 98 Oximetry ED Medical Decision Making - Medical Decision Making This is a 55-year-old -Bangl[place] male with a history of heavy tobacco abuse, CAD s/p [place] and stents placements, [id number]-kewesvpka diabetes, hypertension, chronic osteoarthritis and GERD who presents to the ED with complaint of acute onset persistent right mandibular pain that radiates to the right maxillary and right ear and temporal area for the last 1 week, worse in the last 2 days. Patient states that he has not been able to sleep or eat anything because of worsening pain in his jaw. In the ED, patient is alert and oriented x3 and is not in any distress. Based on the history and physical exam findings, the patient was discharged home on pain medications and antibiotics for suspected dental abscess and gingivitis. Patient was advised to follow-up with his dentist or primary care physician in 7 to 10 days for reevaluation or return to the ED immediately if symptoms get worse. - Differential Diagnosis Dental abscess; gingivitis; dental caries; TMJ syndrome Critical care attestation.: If time is entered above; I have spent that time in minutes in the direct care of this critically ill patient, excluding procedure time. ED Disposition Clinical Impression: Dental abscess, Acute gingivitis Disposition: - TO HOME OR SELFCARE Is pt being admited?: No Does the pt Need Aspirin: No Condition: Stable Instructions: Dental Abscess, [id number]-ny-Sfwh, Trench Mouth Additional Instructions: Take medication with food, drink plenty of fluids and follow-up with your primary care physician or dentist in 7 to 10 days for reevaluation. Return to the ED immediately if symptoms get worse. Prescriptions: Clindamycin [Clindamycin CAP] 300 mg PO Q8HR #60 capsule Ibuprofen [Motrin 800 MG tab] 800 mg PO Q8HR PRN #30 tablet PRN Reason: Pain , Severe (7-10) traMADoL [Ultram 50 MG tab] 50 mg PO Q6HR PRN #12 tablet PRN Reason: Pain Referrals: [facility] [Provider Group] - 3-5 Days Time of Disposition: 02:32 Print Language: FRISIAN
== END 2020-10-06 02:52 | disposition home or self-care (01) ==
LOC: ED 02:10
DX: K04.7 Periapical abscess without sinus (principal); K05.10 Chronic gingivitis, plaque induced; I10 Essential (primary) hypertension; I25.2 Old myocardial infarction; E11.9 Type 2 diabetes mellitus without complications; K21.9 Gastro-esophageal reflux disease without esophagitis; M19.90 Unspecified osteoarthritis, unspecified site; F17.200 Nicotine dependence, unspecified, uncomplicated; Z79.899 Other long term (current) drug therapy; Z88.0 Allergy status to penicillin
CPT/HCPCS: 99282

== ENCOUNTER 2021-12-02 19:18 | Emergency (ER) | payer SELFPAY ==
[2021-12-02] MEDS ORDERED: diphenhydrAMINE 50 MG/ML VIAL IV ONE (20:38)
[2021-12-02] MEDS ORDERED: METOCLOPRAMIDE 10 MG/2 ML INJ IV ONE (20:38)
[2021-12-02] MEDS ORDERED: BUTALB/ACETAMINOPHEN/CAFFEINE TAB PO ONE (20:38)
[2021-12-02 21:46] LABS: Basophils # (Auto) 0.1 K/mm3 (0.0-0.1); Basophils % (Auto) 0.8 % (0.0-1.8); Eosinophils # (Auto) 0.2 K/mm3 (0.0-0.4); Eosinophils % (Auto) 2.3 % (0.0-4.3); Hematocrit 42.4 % (35.5-45.6); Hemoglobin 14.1 gm/dl (11.8-15.2); Lymphocytes # (Auto) 2.7 K/mm3 (1.2-5.4); Lymphocytes % (Auto) 30.2 % (13.4-35.0); Mean Corpuscular HGB Conc 33 % (32-34); Mean Corpuscular Volume 97 fl (84-94); Monocytes # (Auto) 0.5 K/mm3 (0.0-0.8); Platelet Count 203 K/mm3 (140-440); Red Blood Count 4.36 M/mm3 (3.65-5.03); Red Cell Distribution Width 12.7 % (13.2-15.2)
--- NOTE | 2021-12-02 21:51 | Cat Scan Report ---
CT HEAD WITHOUT CONTRAST INDICATION / CLINICAL INFORMATION: headache. TECHNIQUE: All CT scans at this location are performed using CT dose reduction for ALARA by means of automated e xposure control. COMPARISON: None available. FINDINGS: HEMORRHAGE: No evidence of intracranial hemorrhage or extra-axial fluid collection. EXTRA-AXIAL SPACES: Cortical sulci, sylvian fissures and basilar cisterns have an unremarkable appear ance. VENTRICULAR SYSTEM: The third and lateral ventricles are of normal size and configuration. CEREBRAL PARENCHYMA: No areas of abnormal brain parenchymal attenuation are identified. There is no i ndication of recent infarction. MIDLINE SHIFT OR HERNIATION: There is no mass effect. CEREBELLUM / BRAINSTEM: Brainstem and cerebellum have an unremarkable appearance. MIDLINE STRUCTURES:No abnormalities of the pituitary gland or pineal region are identified. INTRACRANIAL VESSELS:No abnormalities are identified on this noncontrast head CT. ORBITS: visualized portions of the orbits have an unremarkable appearance. SOFT TISSUES of HEAD: No significant abnormality. CALVARIUM: Evaluation of bone windows reveals no abnormalities. PARANASAL SINUSES / MASTOID AIR CELLS: Visualized portions of the paranasal sinuses are free from inf lammatory mucosal disease. Mastoid air cells are normally pneumatized. ADDITIONAL FINDINGS: Borderline cerebellar tonsillar ectopia is noted. IMPRESSION: 1. No significant intercranial abnormality on head CT without contrast. Signer Name: David Villar MD Signed: 12/02/2021 9:47 PM Workstation Name: [id number]
[2021-12-02 22:05] LABS: Alanine Aminotransferase 18 units/L (7-56); Albumin 4.7 g/dL (3.9-5); BUN/Creatinine Ratio 7; Blood Urea Nitrogen 8 mg/dL (9-20); Calcium 9.2 mg/dL (8.4-10.2); Hemolysis Index 11
[2021-12-02 22:20] LABS: Erythrocyte Sedimentation Rate 10 mm/Hr (0-20)
[2021-12-02] MEDS ORDERED: KETOROLAC 30 MG/1 ML INJ IM ONE (22:52)
[2021-12-02] MEDS ORDERED: LIDOCAINE-MPF (1%) 10 MG/1 ML VIAL 5 ML INFILTRATI ONE (23:38)
--- NOTE | 2021-12-03 00:55 | Emergency Department Report ---
ED General Adult HPI - General Chief complaint: Headache Stated complaint: HEADACHE Source: patient Mode of arrival: Ambulatory Limitations: No Limitations - History of Present Illness Initial comments: Patient is a 56-year-old -[place] male with a history of hyperlipidemia, chronic eczema, hypertension, GERD, chronic osteoarthritis, guw-zfkdpcn-qzlsjzpxt diabetes and coronary artery disease s/p PTCA stents and who is also noncompliant with his medications presents to the ED with complaint of acute onset persistent left mandibular gingival pain and dental pain that radiates to the left temporal with headache, nausea and vomiting for the last 3 days. Patient states that he has not taken his blood pressure medications as well as his diabetes medication for a while. Patient also states that he has not followed up with his rug hooker in over 2 years. Patient states that he has been taking fzfo-mjc-ttrzaxt medications with no relief. Patient denies traumatic injury, fall, fever, chills, dizziness, syncope, seizures, cough, sore throat, chest pain or shortness of breath, neck pain, numbness and tingling or weakness of upper and lower extremities bilaterally, hearing loss, change in speech or dysphagia and dysphonia. MD Complaint: Left temporal headache with nausea and left lower mandibular pain -: Sudden, days(s) (3) Location: head, face Radiation: non-radiation Severity scale (0 -10): 8 Quality: aching, sharp Consistency: constant Improves with: none Worsens with: eating Associated Symptoms: denies other symptoms, headaches, nausea/vomiting. denies: confusion, chest pain, cough, diaphoresis, fever/chills, loss of appetite, malaise, rash, seizure, shortness of breath, syncope, weakness, other Treatments Prior to Arrival: none - Related Data Home Medications Medication Instructions Recorded Confirmed Last Taken Aspirin [Aspirin BABY CHEW TAB] 81 mg PO QDAY 08/01/19 08/01/19 Unknown Nitroglycerin [Nitrostat] 0.4 mg SL PRN PRN 08/01/19 08/01/19 Unknown raNITIdine HCl [Zantac] 150 mg PO QDAY 08/01/19 08/01/19 Unknown Previous Rx's Medication Instructions Recorded Last Taken Type Nicotine [Habitrol] 14 mg TD QDAY #15 patch 08/03/19 Unknown Rx Nitroglycerin [Nitrostat] 0.4 mg SL Q5M PRN #15 tablet 08/03/19 Unknown Rx Pantoprazole [Protonix TAB] 40 mg PO QDAY tablet 08/03/19 Unknown Rx Acetaminophen/Codeine [Tylenol 1 tab PO Q8H PRN #12 tab 08/19/19 Unknown Rx /Codeine # 3 tab] tiZANidine [Zanaflex 4mg TAB] 4 mg PO Q8H PRN #21 tablet 01/09/20 Unknown Rx Ibuprofen [Motrin 800 MG tab] 800 mg PO Q8HR PRN #30 tablet 10/06/20 Unknown Rx traMADoL [Ultram 50 MG tab] 50 mg PO Q6HR PRN #12 tablet 10/06/20 Unknown Rx Butalb/Acetamin/Caff 50-325-40 1 - 2 tab PO Q6HR PRN #15 tab 12/03/21 Unknown Rx [Fioricet 50-325-40] Clindamycin [Clindamycin CAP] 300 mg PO Q8HR #60 capsule 12/03/21 Unknown Rx Ketorolac [Toradol] 10 mg PO Q8H PRN #20 tab 12/03/21 Unknown Rx Ondansetron [Zofran Odt] 4 mg PO Q8HR PRN #20 tab.rapdis 12/03/21 Unknown Rx Allergies Allergy/AdvReac Type Severity Reaction Status Date / Time Penicillins Allergy Rash Verified 05/18/18 15:37 ED Review of Systems ROS: Stated complaint: HEADACHE Other details as noted in HPI Constitutional: denies: chills, fever Eyes: denies: eye pain, eye discharge, vision change ENT: dental pain (Left mandibular premolar molar toothache with gingival pain). denies: ear pain, throat pain Respiratory: denies: cough, shortness of breath, wheezing Cardiovascular: denies: chest pain, palpitations Endocrine: no symptoms reported Gastrointestinal: nausea, vomiting. denies: abdominal pain, diarrhea Genitourinary: denies: urgency, dysuria Musculoskeletal: denies: back pain, joint swelling, arthralgia Skin: denies: rash, lesions Neurological: headache (Left temporal headache). denies: weakness, paresthesias Psychiatric: denies: anxiety, depression Hematological/Lymphatic: denies: easy bleeding, easy bruising ED Past Medical Hx - Past Medical History Previous Medical History?: Yes Hx Hypertension: Yes Hx Heart Attack/AMI: Yes (Cardiac Stents) Hx Diabetes: Yes (borderline) Hx GERD: Yes Hx Arthritis: Yes Hx HIV: No Additional medical history: Eczema, High Cholesterol - Surgical History Past Surgical History?: Yes Hx Coronary Stent: Yes (06/2017, stents x2 2017) - Social History Smoking Status: Current Every Day Smoker Substance Use Type: None - Medications Home Medications: Home Medications Medication Instructions Recorded Confirmed Last Taken Type Aspirin [Aspirin BABY CHEW TAB] 81 mg PO QDAY 08/01/19 08/01/19 Unknown History Nitroglycerin [Nitrostat] 0.4 mg SL PRN PRN 08/01/19 08/01/19 Unknown History raNITIdine HCl [Zantac] 150 mg PO QDAY 08/01/19 08/01/19 Unknown History Nicotine [Habitrol] 14 mg TD QDAY #15 patch 08/03/19 Unknown Rx Nitroglycerin [Nitrostat] 0.4 mg SL Q5M PRN #15 tablet 08/03/19 Unknown Rx Pantoprazole [Protonix TAB] 40 mg PO QDAY tablet 08/03/19 Unknown Rx Acetaminophen/Codeine [Tylenol 1 tab PO Q8H PRN #12 tab 08/19/19 Unknown Rx /Codeine # 3 tab] tiZANidine [Zanaflex 4mg TAB] 4 mg PO Q8H PRN #21 tablet 01/09/20 Unknown Rx Ibuprofen [Motrin 800 MG tab] 800 mg PO Q8HR PRN #30 tablet 10/06/20 Unknown Rx traMADoL [Ultram 50 MG tab] 50 mg PO Q6HR PRN #12 tablet 10/06/20 Unknown Rx Butalb/Acetamin/Caff 50-325-40 1 - 2 tab PO Q6HR PRN #15 tab 12/03/21 Unknown Rx [Fioricet 50-325-40] Clindamycin [Clindamycin CAP] 300 mg PO Q8HR #60 capsule 12/03/21 Unknown Rx Ketorolac [Toradol] 10 mg PO Q8H PRN #20 tab 12/03/21 Unknown Rx Ondansetron [Zofran Odt] 4 mg PO Q8HR PRN #20 tab.rapdis 12/03/21 Unknown Rx ED Physical Exam - General Limitations: No Limitations General appearance: alert, in no apparent distress - Head Head exam: Present: atraumatic, normocephalic, normal inspection - Eye Eye exam: Present: normal appearance, PERRL, EOMI Pupils: Present: normal accommodation - ENT ENT exam: Present: mucous membranes moist, TM's normal bilaterally, normal external ear exam, other (Mildly swollen tender left mandibular gingiva with premolar and molar teeth tenderness) - Neck Neck exam: Present: normal inspection, full ROM. Absent: tenderness, lymphadenopathy - Respiratory Respiratory exam: Present: normal lung sounds bilaterally. Absent: respiratory distress, wheezes, rales, rhonchi, chest wall tenderness, accessory muscle use, decreased breath sounds, other - Cardiovascular Cardiovascular Exam: Present: normal rhythm, tachycardia, normal heart sounds. Absent: systolic murmur, diastolic murmur, rubs, gallop - GI/Abdominal GI/Abdominal exam: Present: soft, normal bowel sounds. Absent: tenderness, guarding, rebound, hyperactive bowel sounds, hypoactive bowel sounds, organomega ly, mass - Extremities Exam Extremities exam: Present: normal inspection, full ROM, normal capillary refill. Absent: tenderness - Back Exam Back exam: Present: normal inspection, full ROM. Absent: tenderness, CVA tenderness (R), CVA tenderness (L), muscle spasm, paraspinal tenderness, vertebral tenderness - Neurological Exam Neurological exam: Present: alert, oriented X3, CN II-XII intact, normal gait, reflexes normal - Psychiatric Psychiatric exam: Present: normal affect, normal mood - Skin Skin exam: Present: warm, dry, intact, normal color. Absent: rash ED Course Vital Signs 12/02/21 12/02/21 12/02/21 20:07 20:20 20:21 Temperature 98.3 F 98.3 F Pulse Rate 104 H 99 H Respiratory 20 16 Rate Blood Pressure 167/99 Blood Pressure 150/90 [Right] O2 Sat by Pulse 100 98 98 Oximetry 12/02/21 12/02/21 23:06 23:11 Temperature 98.0 F Pulse Rate 76 76 Respiratory 16 Rate Blood Pressure 196/103 Blood Pressure 195/114 [Right] O2 Sat by Pulse 97 Oximetry ED Medical Decision Making - Lab Data Result diagrams: 12/02/21 21:13 12/02/21 21:13 - Radiology Data Radiology results: report reviewed, image reviewed [facility] [address] [place] [address] Cat Scan Report Signed Patient: ROJAS ROMO MR#: [id number] : 1965 Acct:[id number] Age/Sex: 56 / M ADM Date: 12/02/21 Loc: ED Attending Dr: Ordering Physician: JAMA MILES Date of Service: 12/02/21 Procedure(s): CT head/brain wo con Accession Number(s): [id number] cc: JAMA MILES CT HEAD WITHOUT CONTRAST INDICATION / CLINICAL INFORMATION: headache. TECHNIQUE: All CT scans at this location are performed using CT dose reduction for ALARA by means of automated exposure control. COMPARISON: None available. FINDINGS: HEMORRHAGE: No evidence of intracranial hemorrhage or extra-axial fluid collection. EXTRA-AXIAL SPACES: Cortical sulci, sylvian fissures and basilar cisterns have an unremarkable appearance. VENTRICULAR SYSTEM: The third and lateral ventricles are of normal size and configuration. CEREBRAL PARENCHYMA: No areas of abnormal brain parenchymal attenuation are identified. There is no indication of recent infarction. MIDLINE SHIFT OR HERNIATION: There is no mass effect. CEREBELLUM / BRAINSTEM: Brainstem and cerebellum have an unremarkable appearance. MIDLINE STRUCTURES:No abnormalities of the pituitary gland or pineal region are identified. INTRACRANIAL VESSELS:No abnormalities are identified on this noncontrast head CT. ORBITS: visualized portions of the orbits have an unremarkable appearance. SOFT TISSUES of HEAD: No significant abnormality. CALVARIUM: Evaluation of bone windows reveals no abnormalities. PARANASAL SINUSES / MASTOID AIR CELLS: Visualized portions of the paranasal sinuses are free from inflammatory mucosal disease. Mastoid air cells are normally pneumatized. ADDITIONAL FINDINGS: Borderline cerebellar tonsillar ectopia is noted. IMPRESSION: 1. No significant intercranial abnormality on head CT without contrast. Signer Name: David Villar MD Signed: 12/02/2021 9:47 PM Workstation Name: [id number] Transcribed By: Dictated By: David Villar MD Electronically Authenticated By: David Villar MD Signed Date/Time: 12/02/212146 DD/ 44 TD/TT: - Medical Decision Making This is a 56-year-old -[place] male with a history of hyperlipidemia, chronic eczema, hypertension, GERD, chronic osteoarthritis, arx-hldpgze-jittgsgnt diabetes and coronary artery disease s/p PTCA stents and who is also noncompliant with his medications presents to the ED with complaint of acute onset persistent left mandibular gingival pain and dental pain that radiates to the left temporal with headache, nausea and vomiting for the last 3 days. Patient states that he has not taken his blood pressure medications as well as his diabetes medication for a while. Patient also states that he has not followed up with his rug hooker in over 2 years. Patient states that he has been taking pdoh-ric-yzapyum medications with no relief. In the ED, patient is alert and oriented x3 and is not in any distress but tachycardic and afebrile in triage. Physical exam revealed palpable left temporal tenderness and left mandibular gingival tenderness. Lab test results were reviewed and are all nonactionable. EKG shows normal sinus rhythm with a ventricular rate of [address] or T wave abnormalities. The head CT scan without contrast showed no acute intracranial abnormalities or hemorrhage. Patient was treated for pain in the ED, also given antiemetics and antihypertensive medication. On reevaluation, patient's pain is well controlled medication. The headache resolved and patient has not had any nausea or vomiting. Patient is hemod ynamically stable. Patient was discharged home on medications and advised to follow-up with his primary care physician in 7 to 10 days for reevaluation or return to the ED immediately if symptoms get worse. - Differential Diagnosis GCA; dental abscess; gingivitis; uncontrolled hypertension; ACS; sinusitis Critical care attestation.: If time is entered above; I have spent that time in minutes in the direct care of this critically ill patient, excluding procedure time. ED Disposition Clinical Impression: Dental abscess, Acute gingivitis, Nausea and vomiting in adult, Uncontrolled stage 2 hypertension, Left temporal headache Disposition: 01 HOME / SELF CARE / HOMELESS Is pt being admited?: No Does the pt Need Aspirin: No Condition: Stable Instructions: Hypertension (ED), Dental Abscess, Irwq-gs-Swsr, Nausea and Vomiting, Adult, Esqh-zg-Iukh, Tension Headache, Adult, Vzrm-yr-Arqm, Hypertension, Adult, Dqnw-cj-Gzxn, General Headache Without Cause, Zvck-cs-Iosx Additional Instructions: All lab test results were reviewed and are all nonactionable. The head CT scan without contrast showed no acute intracranial abnormalities or hemorrhage. Your symptoms are likely due to dental abscess causing the pain that radiates to the left zoroastrianism causing severe headache. Therefore take medication as advised, drink plenty of fluids and follow-up with your primary care physician in 7 to 10 days for reevaluation. Consider following up with a dentist in 7 to 10 days for further evaluation. Return to the ED immediately if symptoms get worse. Prescriptions: Clindamycin [Clindamycin CAP] 300 mg PO Q8HR #60 capsule Butalb/Acetamin/Caff 50-325-40 [Fioricet 50-325-40] 1 - 2 tab PO Q6HR PRN #15 tab PRN Reason: Headache Ketorolac [Toradol] 10 mg PO Q8H PRN #20 tab PRN Reason: Pain Ondansetron [Zofran Odt] 4 mg PO Q8HR PRN #20 tab.rapdis PRN Reason: Nausea Referrals: KATLYN MARTINEZ MD [Primary Care Provider] - 7-10 days Forms: Work/School Release Form(ED) Time of Disposition: 01:06 Print Language: KITTITIAN
[2021-12-03 01:36] VITALS: BP 143/91
--- NOTE | 2021-12-03 09:21 | Electrocardiograph Report ---
[facility] Test Date: 2021-12-02 Test Time: 22:26:18 Pat Name: ROJAS ROMO Department: Room: Gender: M Online [employer]st: RICHARD : 1965 Requested By: MARLENE HARDY Order Number: [id number] Reading MD: Rosalino Peoples Measurements Intervals Hugo Rate: 70 P: 12 ME: 151 QRS: 43 QRSD: 103 T: 60 QT: 389 QTc: 421 Interpretive Statements Sinus rhythm No previous ECG available for comparison Electronically Signed On 12-03-2021 9:21:18 EDT by Rosalino Peoples
== END 2021-12-03 01:36 | disposition home or self-care (01) ==
LOC: ED 19:18
DX: K04.7 Periapical abscess without sinus (principal); K05.00 Acute gingivitis, plaque induced; R11.2 Nausea with vomiting, unspecified; I10 Essential (primary) hypertension; G44.221 Chronic tension-type headache, intractable; F17.200 Nicotine dependence, unspecified, uncomplicated
CPT/HCPCS: 36415; 70450; 80053; 84484; 85025; 85652; 93005; 96372; 96374; 96375; 99284; J1200; J1885; J2765; J3490

== ENCOUNTER 2022-02-15 15:21 | Emergency (ER) | payer SELFPAY ==
[2022-02-15] MEDS ORDERED: LIDOCAINE-MPF (1%) 10 MG/1 ML VIAL 5 ML INFILTRATI ONE (21:14)
[2022-02-15] MEDS ORDERED: HYDROcodone/ACETAMINOPHEN 5-325 MG TAB PO ONE (21:14)
[2022-02-15] MEDS ORDERED: TETANUS,DIPH,PERTUSS(ACELL) VACCINE 0.5 ML SYRINGE IM ONE (21:14)
[2022-02-15] MEDS ORDERED: cephALEXin 500 MG CAP PO ONE (21:14)
--- NOTE | 2022-02-15 21:35 | XRay Report ---
XR forearm RT INDICATION: foreign body forearm. COMPARISON: None available. FINDINGS: Foreign body is seen in the subcutaneous soft tissues along the radial aspect of the proximal forearm . There is no fracture. Signer Name: Zak Silvestre MD Signed: 02/15/2022 9:31 PM Workstation Name: [id number]
--- NOTE | 2022-02-15 22:03 | Emergency Department Report ---
ED General Adult HPI - General Chief complaint: Extremity Injury, Upper Stated complaint: METAL PIECE IN R ARM Time Seen by Provider: 02/15/22 21:13 Source: patient Mode of arrival: Ambulatory Limitations: No Limitations - History of Present Illness Initial comments: Is a 56-year-old male who presents for foreign body right forearm. Patient states he was using a grinding wheel and a piece of metal flew off striking him in his posterior right forearm. Patient states palpable foreign body. Bleeding was controlled by direct pressure applied self. Last tetanus unknown. No numbness tingling no paralysis. There is no nerve or muscle or tendon damage. There is no obvious deformity. Patient drove self to ED. Patient alert oriented x3 amatory with steady gait. Patient denies other injury. Severity scale (0 -10): 8 - Related Data Home Medications Medication Instructions Recorded Confirmed Last Taken Aspirin [Aspirin BABY CHEW TAB] 81 mg PO QDAY 08/01/19 08/01/19 Unknown Nitroglycerin [Nitrostat] 0.4 mg SL PRN PRN 08/01/19 08/01/19 Unknown raNITIdine HCl [Zantac] 150 mg PO QDAY 08/01/19 08/01/19 Unknown Previous Rx's Medication Instructions Recorded Last Taken Type Nicotine [Habitrol] 14 mg TD QDAY #15 patch 08/03/19 Unknown Rx Nitroglycerin [Nitrostat] 0.4 mg SL Q5M PRN #15 tablet 08/03/19 Unknown Rx Pantoprazole [Protonix TAB] 40 mg PO QDAY tablet 08/03/19 Unknown Rx Acetaminophen/Codeine [Tylenol 1 tab PO Q8H PRN #12 tab 08/19/19 Unknown Rx /Codeine # 3 tab] tiZANidine [Zanaflex 4mg TAB] 4 mg PO Q8H PRN #21 tablet 01/09/20 Unknown Rx Ibuprofen [Motrin 800 MG tab] 800 mg PO Q8HR PRN #30 tablet 10/06/20 Unknown Rx traMADoL [Ultram 50 MG tab] 50 mg PO Q6HR PRN #12 tablet 10/06/20 Unknown Rx Butalb/Acetamin/Caff 50-325-40 1 - 2 tab PO Q6HR PRN #15 tab 12/03/21 Unknown Rx [Fioricet 50-325-40] Clindamycin [Clindamycin CAP] 300 mg PO Q8HR #60 capsule 12/03/21 Unknown Rx Ketorolac [Toradol] 10 mg PO Q8H PRN #20 tab 12/03/21 Unknown Rx Ondansetron [Zofran Odt] 4 mg PO Q8HR PRN #20 tab.rapdis 12/03/21 Unknown Rx cephALEXin [Keflex] 500 mg PO Q8HR 7 Days #21 cap 02/15/22 Unknown Rx traMADoL [Ultram] 50 mg PO Q6HR PRN #12 tablet 02/15/22 Unknown Rx Allergies Allergy/AdvReac Type Severity Reaction Status Date / Time Penicillins Allergy Rash Verified 02/15/22 16:01 ED Review of Systems ROS: Stated complaint: METAL PIECE IN R ARM Other details as noted in HPI Constitutional: denies: chills, fever Eyes: denies: eye pain, eye discharge, vision change ENT: denies: ear pain, throat pain Respiratory: denies: cough, shortness of breath, wheezing Cardiovascular: denies: chest pain, palpitations Endocrine: no symptoms reported Gastrointestinal: denies: abdominal pain, nausea, diarrhea Genitourinary: denies: urgency, dysuria Musculoskeletal: other (Right posterior forearm pain puncture wound foreign body) Skin: other. denies: rash, lesions Neurological: denies: headache, weakness, paresthesias Psychiatric: denies: anxiety, depression Hematological/Lymphatic: denies: easy bleeding, easy bruising ED Past Medical Hx - Past Medical History Hx Hypertension: Yes Hx Heart Attack/AMI: Yes (Cardiac Stents) Hx Diabetes: Yes (borderline) Hx GERD: Yes Hx Arthritis: Yes Hx HIV: No Additional medical history: Eczema, High Cholesterol - Surgical History Hx Coronary Stent: Yes (06/2017, stents x2 2018) - Social History Smoking Status: Current Every Day Smoker - Medications Home Medications: Home Medications Medication Instructions Recorded Confirmed Last Taken Type Aspirin [Aspirin BABY CHEW TAB] 81 mg PO QDAY 08/01/19 08/01/19 Unknown History Nitroglycerin [Nitrostat] 0.4 mg SL PRN PRN 08/01/19 08/01/19 Unknown History raNITIdine HCl [Zantac] 150 mg PO QDAY 08/01/19 08/01/19 Unknown History Nicotine [Habitrol] 14 mg TD QDAY #15 patch 08/03/19 Unknown Rx Nitroglycerin [Nitrostat] 0.4 mg SL Q5M PRN #15 tablet 08/03/19 Unknown Rx Pantoprazole [Protonix TAB] 40 mg PO QDAY tablet 08/03/19 Unknown Rx Acetaminophen/Codeine [Tylenol 1 tab PO Q8H PRN #12 tab 08/19/19 Unknown Rx /Codeine # 3 tab] tiZANidine [Zanaflex 4mg TAB] 4 mg PO Q8H PRN #21 tablet 01/09/20 Unknown Rx Ibuprofen [Motrin 800 MG tab] 800 mg PO Q8HR PRN #30 tablet 10/06/20 Unknown Rx traMADoL [Ultram 50 MG tab] 50 mg PO Q6HR PRN #12 tablet 10/06/20 Unknown Rx Butalb/Acetamin/Caff 50-325-40 1 - 2 tab PO Q6HR PRN #15 tab 12/03/21 Unknown Rx [Fioricet 50-325-40] Clindamycin [Clindamycin CAP] 300 mg PO Q8HR #60 capsule 12/03/21 Unknown Rx Ketorolac [Toradol] 10 mg PO Q8H PRN #20 tab 12/03/21 Unknown Rx Ondansetron [Zofran Odt] 4 mg PO Q8HR PRN #20 tab.rapdis 12/03/21 Unknown Rx cephALEXin [Keflex] 500 mg PO Q8HR 7 Days #21 cap 02/15/22 Unknown Rx traMADoL [Ultram] 50 mg PO Q6HR PRN #12 tablet 02/15/22 Unknown Rx ED Physical Exam - General Limitations: No Limitations General appearance: alert, in no apparent distress - Head Head exam: Present: normocephalic, normal inspection - Eye Eye exam: Present: normal appearance, PERRL, EOMI Pupils: Present: normal accommodation - ENT ENT exam: Present: mucous membranes moist - Neck Neck exam: Present: normal inspection, full ROM. Absent: tenderness - Respiratory Respiratory exam: Present: normal lung sounds bilaterally. Absent: respiratory distress, wheezes - Cardiovascular Cardiovascular Exam: Present: regular rate, normal rhythm, normal heart sounds. Absent: systolic murmur, diastolic murmur, rubs, gallop - GI/Abdominal GI/Abdominal exam: Present: soft, normal bowel sounds - Rectal Rectal exam: Present: deferred - Extremities Exam Extremities exam: Present: normal inspection, full ROM, tenderness (Right posterior forearm radial medial aspect possible foreign body there is no bleeding 1 cm puncture wound), normal capillary refill - Expanded Upper Extremity Exam Right Forearm Wrist exam: Present: tenderness, swelling, laceration (Puncture wound palpable foreign body). Absent: crepidus, erythema, tenderness over anatomical snuff box, pain with axial thumb loading Hand Wrist exam: Present: full ROM. Absent: tenderness, swelling Neuro motor exam: Present: wrist extension intact, thumb opposition intact, thumb IP flexion intact, thumb adduction intact, fingers 2-5 abduction intact Neurosensory exam: Present: radial nerve intact Vascular: Present: normal capillary refill - Back Exam Back exam: Present: normal inspection, full ROM. Absent: CVA tenderness (R), CVA tenderness (L) - Neurological Exam Neurological exam: Present: alert, oriented X3, CN II-XII intact - Psychiatric Psychiatric exam: Present: normal affect, normal mood - Skin Skin exam: Present: warm, dry, intact, normal color. Absent: rash ED Course Vital Signs 02/15/22 15:57 Temperature 98 F Pulse Rate 114 H Respiratory 18 Rate O2 Sat by Pulse 97 Oximetry - Laceration /Wound Repair Right Posterior Proximal Arm Wound Location: upper extremity (Right radial aspect forearm foreign body with puncture wound 1 cm palpable with no neuromuscular tendon damage) Wound Explored: foreign body removed (1 cm metal particle removed intact) Irrigated w/ Saline (ccs): 50 Betadine Prep?: Yes Anesthesia: 1% Lidocaine Volume Anesthetic (ccs): 3 (Anesthesia is achieved) Wound Debrided: minimal Wound Repaired With: sutures Suture Size/Type: 3:0, proline Number of Sutures: 3 Layer Closure?: No Sterile Dressing Applied?: Yes (4 x 4 Ivone) Progress: Right posterior forearm foreign body site clean Betadine solution anesthesia 1% lidocaine x3 cc anesthesia is achieved. Foreign body removed with blunt six- inch forceps wound closed with 3-0 Prolene times 3 sutures. It is well approximated all bleeding is controlled sterile dressing applied patient given wound care instructions including follow-up in 2 days for wound check set return in 7 to 10 days for suture removal. Patient given tetanus immunization during this visit will be DC'd home with prescriptions. Patient verbalized agreement understanding of discharge plan. 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 COMPARISON: None available. FINDINGS: Foreign body is seen in the subcutaneous soft tissues along the radial aspect of the proximal forearm. There is no fracture. Signer Name: Zak Silvestre MD Signed: 02/15/2022 9:31 PM Workstation Name: [id number] Transcribed By: [email or web address] Dictated By: Zak Silvestre MD Electronically Authenticated By: Zak Silvestre MD Signed Date/Time: 02/15/222130 DD/ 30 TD/TT: - Medical Decision Making Foreign body removed intact with laceration repaired see procedure note. Patient given wound care instructions follow-up instructions. Patient DC to home with prescriptions. Patient verbalized agreement understanding of discharge plan. Patient DC'd home in stable condition at this time. Critical care attestation.: If time is entered above; I have spent that time in minutes in the direct care of this critically ill patient, excluding procedure time. ED Disposition Clinical Impression: Foreign body forearm Qualifiers: Encounter type: initial encounter Laterality: right Qualified Code(s): S50.851A - Superficial foreign body of right forearm, initial encounter Disposition: HOME / SELF CARE / HOMELESS Is pt being admited?: No Does the pt Need Aspirin: No Condition: Stable Instructions: Sliver Removal, Care After, Sutures, [place], or Adhesive Wound Closure, [id number] Additional Instructions: Take medications as prescribed, wound care as directed. Follow-up with your doctor in 2 days for wound check 7 to 10 days for suture removal. Return to the emergency department if symptoms worsen. Prescriptions: cephALEXin [Keflex] 500 mg PO Q8HR 7 Days #21 cap traMADoL [Ultram] 50 mg PO Q6HR PRN #12 tablet PRN Reason: Pain Referrals: KATLYN MARTINEZ MD [Primary Care Provider] - 3-5 Days Forms: Work/School Release Form(ED) Time of Disposition: 22:13
[2022-02-15 22:40] VITALS: BP 156/82
== END 2022-02-15 22:40 | disposition home or self-care (01) ==
LOC: ED 15:21
DX: S51.821A Laceration with foreign body of right forearm, initial encounter (principal); S50.851A Superficial foreign body of right forearm, initial encounter; I10 Essential (primary) hypertension; I21.9 Acute myocardial infarction, unspecified; E11.9 Type 2 diabetes mellitus without complications; M19.90 Unspecified osteoarthritis, unspecified site; K21.9 Gastro-esophageal reflux disease without esophagitis; Z98.890 Other specified postprocedural states; Z88.0 Allergy status to penicillin; Z79.899 Other long term (current) drug therapy; F17.200 Nicotine dependence, unspecified, uncomplicated; X58.XXXA Exposure to other specified factors, initial encounter; Y93.89 Activity, other specified; Y92.89 Other specified places as the place of occurrence of the external cause; Y99.8 Other external cause status
CPT/HCPCS: 12042; 73090; 90471; 90715; 99283; J3490